=== PATIENT | female | born 1980 | race Caucasian/White ===

== ENCOUNTER 2019-10-07 16:01 | Outpatient (CLI) | payer BC, SELFPAY ==
--- NOTE | ~2019-10-07 | MM_ITS ---
EXAMINATION: MM screening [facility] BI w elvin HISTORY: Screening mammogram TECHNIQUE: Craniocaudal and mediolateral oblique 3-D tomosynthesis images were obtained and synthetic 2-D images were generated. CAD analysis was submitted and interpreted. COMPARISON: 10/05/2018 BREAST PARENCHYMAL COMPOSITION: The breasts are almost entirely fatty. FINDINGS: There is no evidence of suspicious mass, calcification, or architectural distortion to sugg est malignancy in either breast. There has been no suspicious interval change. IMPRESSION: 1. No mammographic evidence of malignancy. 2. Recommend routine screening mammography in one year. BI-RADS Category 1: Negative Reviewed, dictated and finalized at location A. 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
== END 2019-10-07 16:02 | disposition home or self-care (01) ==
PROVIDERS: PCP Internal Medicine; Visit Provider Obstetrics & Gynecology
DX: Z12.31 Encounter for screening mammogram for malignant neoplasm of breast (principal)
CPT/HCPCS: 77063; 77067

== ENCOUNTER 2020-06-07 11:48 | Outpatient (CLI) | payer BC, SELFPAY ==
--- NOTE | ~2020-06-07 | XR_ITS ---
XR hip BI 2V w AP pelvis DATE: 06/07/2020 12:08 INDICATION: Injury, hip pain TECHNIQUE: AP pelvis. AP and lateral views of each hip COMPARISON: None FINDINGS: No pelvic fracture or bone destruction. The pubic symphysis and sacroiliac joints are vineet lly aligned. No fracture, dislocation, avascular necrosis or bone destruction of either hip. IMPRESSION: No pelvic or hip fracture Reviewed, dictated and finalized at location A. IMPRESSION: No pelvic or hip fracture
== END 2020-06-07 11:49 | disposition home or self-care (01) ==
LOC: ANHIMG 11:53
PROVIDERS: PCP Internal Medicine; Visit Provider Internal Medicine
DX: M54.30 Sciatica, unspecified side (principal); T14.90XA Injury, unspecified, initial encounter
CPT/HCPCS: 73521

== ENCOUNTER 2020-11-13 15:14 | Outpatient (CLI) | payer BC, SELFPAY ==
--- NOTE | ~2020-11-13 | MM_ITS ---
EXAMINATION: MM screening [facility] BI w elvin HISTORY: Screening TECHNIQUE: Craniocaudal and mediolateral oblique 3-D tomosynthesis images were obtained and synthetic 2-D images were generated. CAD analysis was submitted and interpreted. COMPARISON: Comparison to multiple prior studies sequentially, with oldest reviewed study dated 11/2018. BREAST PARENCHYMAL COMPOSITION: There are scattered areas of fibroglandular density. FINDINGS: There is no evidence of suspicious mass, calcification, or architectural distortion to sugg est malignancy in either breast. There has been no suspicious interval change. IMPRESSION: 1. No mammographic evidence of malignancy. 2. Recommend routine screening mammography in one year. BI-RADS Category 1: Negative Reviewed, dictated and finalized at location A.
== END 2020-11-13 15:15 | disposition home or self-care (01) ==
LOC: ANHIMG 15:17
PROVIDERS: PCP Registered Nurse; Visit Provider Obstetrics & Gynecology
DX: Z12.31 Encounter for screening mammogram for malignant neoplasm of breast (principal)
CPT/HCPCS: 77063; 77067

== ENCOUNTER 2021-05-01 14:20 | Emergency (ER) | payer BC, SELFPAY ==
[2021-05-01 14:38] VITALS: BP 106/77; PULSE 91; RESP 16; TEMP 37.2; O2SAT 100
--- NOTE | 2021-05-01 15:13 | ED.SKABFB ---
HPI - Skin/Abscess/Foreign Bdy General Chief complaint: Skin/Abscess/Foreign Body Stated complaint: Rash to Rt side of face and Lt leg Source: patient and RN notes reviewed Mode of arrival: ambulatory History of Present Illness HPI narrative: This is a 40-year-old female who presented to urgent care with multiple rashes. According to patient 4 days ago she developed an area to her left inner ankle. She notes that this area became itchy in nature she did take Benadryl to prevent the itching. Currently the site is purulent with a white discharge and edematous with erythematous. She later developed multiple papule to her high area bilaterally. She now has an area to the left side of her face near her teeth. Patient did note that [place]. The patient denies SOB, CP, palpitation, extremity numbness, lightheadedness, dizziness, constipation, diarrhea, chills, or fever. MD complaint: rash, insect bite/sting and abscess/boil Related Data Allergies Allergy/AdvReac Type Severity Reaction Status Date / Time No Known Allergies Allergy Verified 05/01/21 14:48 Review of Systems Review of Systems: A 14 organ system Review of Systems was performed and pertinent positives included in the HPI, otherwise remaining ROS is negative. [facility] Past Medical History Medical History (Updated 05/01/21 @ 15:13 by PATRIA García) Anemia Anxiety Depression Surgical History Surgical History (System 01/16/21 @ 13:40 by Alma Alfred) History of tonsillectomy History of tubal ligation Family History Family History (System 01/16/21 @ 13:40 by Alma Alfred) Sibling Hypertension Mother Family history of anemia Family history of kidney disease Family history of hyperthyroidism Patient's mother is , Onset Age: 72 Grandparent Family history of Alzheimer's disease Family history of lung cancer, Onset Age: 72 Social History Social History (System 01/16/21 @ 13:40 by Alma Alfred) Smoking status: Current some day smoker Alcohol intake: current Exam Narrative: GENERAL: This is a well-nourished, well-developed patient, in no apparent distress. HEAD: normocephalic, atraumatic. EYES: PERRL. Sclera clear/white. Vision is grossly intact. EARS: External ears normal, auditory canals clear and without drainage, TMs normal without perforation. Hearing grossly intact. NOSE: External nose normal with no obvious nasal discharge, nares without redness, no rhinorrhea. THROAT: Mucous membranes moist, posterior pharynx clear. NECK: Neck supple, non-tender without lymphadenopathy, masses or thyromegaly. CARDIOVASCULAR: Regular rate and rhythm without murmurs, gallops, or rubs. RESPIRATORY: Clear to auscultation. Breath sounds equal bilaterally. No wheezes, rales, or rhonchi. GASTROINTESTINAL: Abdomen soft, non-tender, nondistended. Bowel sounds are active. No hepato-splenomegaly, or palpable masses. No guarding. SKIN: Left inner ankle pustule yellowish discharge erythema with edema. Multiple papula to my area bilateral. papula to the face. NEURO: awake, alert, and oriented to person, place and time. There were no obvious focal neurologic abnormalities. Steady gait EXTREMITIES: Normal range of motion. No edema. No calf tenderness. Negative Homans sign bilaterally. BACK: Nontender without deformity or crepitance. No flank tenderness. Course Course Emergency Course: Patient treated for cellulitis given doxycycline also instructed to use get [id number] calamine lotion for possible poison heike. Also given prednisone to his liking no was irritating a lot of mucus, no. Vital Signs Vital signs: Vital Signs Temperature 99.0 F 05/01/21 14:38 Pulse Rate 91 05/01/21 14:38 Respiratory Rate 16 05/01/21 14:38 Blood Pressure 106/77 05/01/21 14:38 Pulse Oximetry 100 05/01/21 14:38 Temperature 99.0 F 05/01/21 14:38 Pulse Rate 91 05/01/21 14:38 Resp
== END 2021-05-01 15:34 | disposition home or self-care (01) ==
PROVIDERS: Emergency Provider Nurse Practitioner; PCP Registered Nurse
DX: L25.9 Unspecified contact dermatitis, unspecified cause (principal); S90.562D Insect bite (nonvenomous), left ankle, subsequent encounter; S70.362D Insect bite (nonvenomous), left thigh, subsequent encounter; S70.361D Insect bite (nonvenomous), right thigh, subsequent encounter; S00.86XD Insect bite (nonvenomous) of other part of head, subsequent encounter; W57.XXXD Bitten or stung by nonvenomous insect and other nonvenomous arthropods, subsequent encounter
CPT/HCPCS: 99213; G0463

== ENCOUNTER 2021-07-13 10:34 | Outpatient (CLI) | payer BC, SELFPAY | END 2021-07-13 10:35 | disposition home or self-care (01) | LOC: ANHSURGERY 10:37 | PROVIDERS: PCP Registered Nurse; Visit Provider Obstetrics & Gynecology | DX: Z01.812 Encounter for preprocedural laboratory examination (principal); N92.0 Excessive and frequent menstruation with regular cycle | CPT/HCPCS: 36415; 86850; 86900; 86901 ==

== ENCOUNTER → 2021-07-14 00:33 | Outpatient (CLI) | payer BC, SELFPAY ==
[2021-07-14 17:30] LABS: SARS-CoV-2 RNA PCR Negative
== END ==
PROVIDERS: PCP Registered Nurse; Visit Provider Obstetrics & Gynecology
DX: Z01.812 Encounter for preprocedural laboratory examination (principal); Z20.822 Contact with and (suspected) exposure to COVID-19
CPT/HCPCS: C9803; U0003; U0005

== ENCOUNTER 2021-07-17 00:12 | Day surgery (SDC) | payer BC, MEDICAID, SELFPAY ==
[2021-07-12 14:12] VITALS: BMI 29.2
--- NOTE | 2021-07-12 14:23 | PC.NURSE ---
Report to the Outpatient Waiting Room, entrance under the green pavilion located off [facility], at time 6:00 on date 07/17/21. OR Time: 7:30. - You and your visitor will be asked a series of questions to screen for COVID 19 for your protection. - A mask is required within the hospital. - Only one visitor is allowed at this time. Patient visitors will be guided where to wait when not with patient. Preoperative COVID Testing Requirements: No COVID Test needed if: (proof is required; if not received patient will have Rapid Test prior to entry) - Patient has received COVID Vaccine at least 14 days prior to procedure date or - Patient has positive COVID test result within last 90 days of surgery date. COVID Test needed if above criteria is not met If not COVID vaccinated a COVID test must be conducted within 72 hours of surgery and patient is asked to isolate self from time of testing until procedure. You will go to the [facility] for your COVID testing. The [facility] site is located at the corner of [address] [facility]. COVID TEST 07/14 AT 9:30 You will only be called if COVID results are positive and your surgeon may reschedule your elective surgery date. Patients may have clear liquids (water, carbonated beverages, clear teas, apple juice) until 3 hours prior to surgery with a maximum of 20 ounces. - No food from midnight until time of surgery - Infants may have breast milk until 4 hours before surgery, infant formula 6 hours prior to surgery. - Children will be allowed to drink immediately following surgery. If applicable, please bring a bottle or sippy cup to assist with drinking. Juice, water, soda, and popsicles are readily available. For infants on formula, please bring formula the day of surgery. Pacifiers are allowed. Take the following medications with a SIP of water the morning of surgery: LEVOTHYROXINE, VALACYCLOVIR Medications to discontinue per physician: VITAMINS/SUPPLEMENTS Date to take last dose: 07/13/21 Please no make-up, nail faroese, hairspray, perfume, deodorant, or body powder the day of surgery. No jewelry (including any body piercings) or valuables the day of surgery, leave them at home. Please take a shower or bath the night before, or the morning of, surgery with an antibacterial soap. Wear comfortable, loose fitting clothing. Children are encouraged to wear pajamas. - Jewelry must be removed prior to entering the operating room. Rings and piercings that are not removed may be cut off. - The hospital will not accept responsibility for valuables. - Please leave all valuables, including medications, at home the day of surgery. If you are going home after surgery, a licensed driver courier must drive you home. - NO public transportation without another adult. - We recommend that an adult stay with you for 24 hours following discharge. - We also recommend that you do not drive, make important decision, drink alcoholic beverages, or take any drugs that were not prescribed by your health care provider for at least 24 hours after your discharge time. For Pediatric surgeries, we recommend two adults accompany the child home (only one inside the building at this time). Follow any additional instructions given to you from your surgeon. Telephone instructions given to KYLIE FUNG and asked if any additional questions and then verbalized understanding. Patient advised to call surgeon office or pre surgery nurse liaison [phone] if any additional questions.
--- NOTE | 2021-07-16 13:57 | PCCCNOTE ---
Phone call to Dr. Maurice's office to ask about precert/authorization- per garbage collector the assembler utility buildings is out of the office at this time but she will contact her to call me back, contact details provided. Awaiting call back.
[2021-07-17] VITALS (9 sets, daily range): BP systolic 95–112; BP diastolic 59–74; PULSE 61–79; RESP 12–19; TEMP 36.1–37.1; O2SAT 97–100
[2021-07-17] MEDS: ACETAMINOPHEN 500 MG TABLET 1000 MG PO (06:06)
[2021-07-17] MEDS: LACTATED RINGERS 1,000 ML 30 ML IV CONT ×2 (06:40→09:33)
[2021-07-17] MEDS: KETOROLAC 15 MG/ML VIAL (*BKC) IV PUSH ×2 (06:42→10:06)
--- NOTE | 2021-07-17 07:05 | P.PNAN_ITS ---
Anes - Initial Pre Proc Eval Procedure: Operation Date: 07/17/21 07:30 Proposed Procedures p Total Laparoscopic Hysterectomy with Bilateral Salpingectomy - Lorraine Maurice MD Date/Time: 07/17/21 07:05 Surgeon: Lorraine Maurice MD Pre Op Diagnosis: Menorrhagia Patient Data Age: 41 Gender: F Height: 1.57 m Weight: 74.6 kg Allergies Allergy/AdvReac Type Severity Reaction Status Date / Time No Known Allergies Allergy Verified 07/17/21 06:02 Home Medications Medication Instructions Recorded Confirmed Type levothyroxine 100 mcg tablet 100 mcg PO DAILY #90 tablet 09/04/20 07/17/21 Rx valacyclovir 500 mg tablet 500 mg PO DAILY #90 tablet 09/04/20 07/17/21 Rx multivitamin 1 tablet PO DAILY 07/12/21 07/17/21 History Patient hx anesthesia problems: none Family hx anesthesia problems: none Results Review: All pre-operative results and documents have been reviewed as part of the pre-operative evaluation. [facility] Past Medical History Medical History (Updated 05/02/21 @ 00:01 by Demi Bailey) Anemia Anxiety Depression Surgical History Surgical History (System 01/16/21 @ 13:40 by Alma Alfred) History of tonsillectomy History of tubal ligation Family History Family History (System 01/16/21 @ 13:40 by Alma Alfred) Sibling Hypertension Mother Family history of anemia Family history of kidney disease Family history of hyperthyroidism Patient's mother is , Onset Age: 72 Grandparent Family history of Alzheimer's disease Family history of lung cancer, Onset Age: 72 Social History Social History (System 01/16/21 @ 13:40 by Alma Alfred) Years smoked: 20 Smoking status: Current every day smoker Tobacco type: cigarettes Alcohol intake: current Alcohol use details: WEEKENDS Substance use: never Substance use type: does not use Living arrangements: with family Spiritual care concerns: No Anes - Eval Final PreProcedure Day of Procedure 07/17/21 07:05 Patient weight: obese Heart: regular rate and rhythm Lungs: clear to auscultation Airway: Mallampati scale class II Neurological: alert and oriented Last oral intake: >/= 8 hours ASA classification: II Emergent: no Anesthetic plan: proceed Anesthesia type and monitoring: general ETT and standard monitoring Results Review: All pre-operative results and documents have been reviewed as part of the pre-operative evaluation. Informed Consent: The patient's anesthetic plan and its attendant risks and benefits were discussed with the patient/family/POA. Questions were solicited and answers provided to the satisfaction of the patient/family/POA.
--- NOTE | 2021-07-17 07:20 | WPDHPUPDATE1 ---
History and Physical Update Update Date/Time: 07/17/21 07:20 History and Physical has been reviewed, including an updated exam of the patient. There are NO changes in the patient's condition. Risks, benefits, and alternatives have been discussed and questions answered. Patient agrees to proceed with procedure.
[2021-07-17] MEDS: ceFAZolin 2 GM/D5W 50 ML 2 GM/50 ML BAG IVPB (07:30)
--- NOTE | 2021-07-17 09:35 | W.PM.PROC2 ---
Procedure Note - Detailed Date of Procedure 07/17/21 Pre-op Diagnosis Menorrhagia Post-op Diagnosis same Procedure Performed Total laparoscopic hysterectomy and bilateral salpingectomy. Surgeon Lorraine Maurice MD Anesthesia general Indications Severe menometrorrhagia, possible cervical mass Findings Moderate sized uterus, normal appearing ovaries and normal-appearing tubes. Description of Procedure This patient was taken to the operating room. She was prepped and draped in the dorsal lithotomy position after induction of general anesthesia. The uterine manipulator and Messi cup were placed. This was done with a speculum and tenaculum. The speculum was placed. The cervix was grasped with a tenaculum. The stay sutures were placed at 3 and 9:00 a.m.. The stay sutures of 0 Vicryl were brought through the appropriately sized Messi cup. The tip of the JAIDA manipulator was placed in the intrauterine cavity. The cup was slid into place around the cervix and into the fornices. It was locked into place. The sutures were then wrapped around the handle and tied under tension. A 5 mm skin incision was made in the left upper quadrant the abdomen. A 5 mm trocar was inserted into the intrauterine cavity under direct visualization of the scope. Pneumoperitoneum was achieved. A left lower quadrant 11 mm incision was made with scalpel. An 11 mm trocar was inserted into the anterior abdominal cavity under direct visualization the scope. A 5 mm infraumbilical incision was made with a scalpel and a 5 mm trocar was inserted the intra-abdominal cavity under direct visualization of the scope. Bilateral ureteral lysis was performed. This was done from the pelvic brim down to the uterine artery. This was done with careful dissection using sharp and blunt dissection. The fallopian tubes were removed bilaterally. The mesosalpinx around the fallopian tubes were cauterized transected with LigaSure cautery. This was done in a bilateral fashion from the ovary to the uterine cornua. The fallopian tube was transected at the uterine cornu and amputated. The tube was taken out the left lower quadrant trocar site. In a stepwise fashion along the lateral aspects of the uterus the round ligament and broad ligaments were cauterized transected down to the level of the uterine arteries. A bladder flap was created in the bladder was moved distally to the end of the cervix and over the Messi cup. The bilateral uterine arteries were cauterized and transected. Colpotomy was then performed. In a circumferential fashion the vagina was transected using unipolar cautery. The incision was made down on the Messi cup. The uterus and cervix were taken out through the vagina. A pneumo occluder was placed in the vagina. The vaginal cuff was closed with a 0 V lock suture in a running fashion. The pelvis was irrigated with copious amounts antibiotic irrigation. The ureters were again examined and found to be intact and flowing freely under the uterine arteries into the bladder. The bladder was intact. It was examined directly. The vagina was irrigated with Betadine solution after removal of the Pneumo occluder. The patient was taken to recovery room. She was stable condition. Sponge lap and needle counts were correct x2. Estimated Blood Loss 100 Drains Yes Packing No Pathology yes Complications No immediate complications Condition stable Disposition floor
[2021-07-17] MEDS: fentaNYL CITRATE INJ (*CRX) 100 MCG/2 ML VIAL 25 MCG IV PUSH ×8 (09:47→10:25)
--- NOTE | 2021-07-17 10:45 | PC.NURSE ---
This patient, Eliane Conley, was received from PACU on 07/17/21 at 1045. Patient/family oriented to unit policies and routines
[2021-07-17] MEDS: DEXTROSE 5%/0.45% SOD CHL 1,000 ML 125 ML IV CONT (11:27)
[2021-07-17] MEDS: KETOROLAC 30 MG/ML VIAL (*BKC) IV PUSH (13:15)
[2021-07-17] MEDS: HYDROcodone/acetaminophen (*CRX) 10-325 MG TABLET 1 TAB PO ×2 (14:32→19:48)
[2021-07-18 00:07] VITALS: BP 101/62; PULSE 62; RESP 16; TEMP 36.8; O2SAT 98
[2021-07-18] MEDS: HYDROcodone/acetaminophen (*CRX) 5-325 MG TABLET 1 TAB PO ×3 (01:13→08:39)
[2021-07-18] MEDS: IBUPROFEN 600 MG TABLET PO ×2 (01:13→08:39)
[2021-07-18] MEDS: SIMETHICONE 80 MG TAB.CHEW PO (01:20)
[2021-07-18 04:30] VITALS: BP 100/61; PULSE 84; RESP 16; TEMP 36.9; O2SAT 100
--- NOTE | 2021-07-18 07:33 | PM.GYNPNOP ---
SYSTEMS ADMIN - A/P Postoperative Procedures: Procedures Operation Date: 07/17/21 07:30 Actual Procedure Side Surgeon p Total Laparoscopic Hysterectomy with Bilateral Salpingectomy Bilateral Lorraine Maurice MD Postoperative day: 1 Postoperative status: doing well Postoperative plan: see orders Time Spent With Patient Time: Total time spent is greater than 50% in coordination of care (as documented) at patient's floor/unit and/or counseling patient: Time with patient: less than 15 minutes SYSTEMS ADMIN- PN:Subj Post-Op Subjective Date/time seen: 07/18/21 07:33 Subjective: patient reports feeling better, patient has no complaints and pain is well controlled Exam Const: General: healthy appearing, comfortable and no acute distress Resp: Auscultation: clear to auscultation bilaterally, no rales, no rhonchi and no wheezes Cardio: Rate: regular rate Heart sounds: no click, no murmurs and no rubs GI: Inspection: non-distended Auscultation: normal bowel sounds Extrem: General: normal to inspection, no pedal edema and no calf tenderness SYSTEMS ADMIN - PN: Obj Data Vital Signs Vital Signs: Vital Signs - 24 hr 07/17/21 09:33 07/17/21 09:45 07/17/21 10:00 Temperature 98.6 F Pulse Rate 69 62 78 Respiratory Rate 14 12 18 Blood Pressure 107/74 103/74 108/73 Pulse Oximetry 100 100 97 07/17/21 10:15 07/17/21 10:30 07/17/21 11:39 Temperature 98.8 F Pulse Rate 61 78 64 Respiratory Rate 12 19 16 Blood Pressure 103/63 96/59 L 95/61 L Pulse Oximetry 97 98 97 07/17/21 15:30 07/17/21 20:00 07/18/21 00:07 Temperature 98.3 F 98.8 F 98.2 F Pulse Rate 79 72 62 Respiratory Rate 16 18 16 Blood Pressure 100/69 112/64 101/62 Pulse Oximetry 99 99 98 07/18/21 04:30 Temperature 98.4 F Pulse Rate 84 Respiratory Rate 16 Blood Pressure 100/61 Pulse Oximetry 100 Intake/Output Intake/Output: Intake & Output 07/15/21 07/16/21 07/17/21 07/18/21 23:59 23:59 23:59 23:59 Intake Total 450 Output Total 325 Balance 125 Meds/Results Medications: Active Medications Generic Name Dose Route Start Last Admin Trade Name Freq PRN Reason Stop Dose Admin Hydrocodone Bitart/Acetaminophen 1 tab 07/17/21 10:36 07/18/21 04:34 Hydrocodone/Acetaminophen (*Crx) 5-325 Mg Tablet PO 1 tab Q3H PRN Administration Pain Rated 5 or Less Hydrocodone Bitart/Acetaminophen 1 tab 07/17/21 10:36 07/17/21 19:48 Hydrocodone/Acetaminophen (*Crx) 10-325 Mg Tablet PO 1 tab Q3H PRN Administration Pain Rated 6 or Greater Dextrose/Sodium Chloride 1,000 mls @ 125 mls/hr 07/17/21 10:36 07/17/21 11:27 Dextrose 5% Sodium Chloride 0.45% IV CONT 125 mls/hr .Q8H JUANJOSE Administration Ibuprofen 600 mg 07/17/21 10:36 07/18/21 01:13 Ibuprofen 600 Mg Tablet PO 600 mg Q6H PRN Administration Cramping Ketorolac Tromethamine 30 mg 07/17/21 10:36 07/17/21 13:15 Ketorolac 30 Mg/Ml Vial (*Bkc) IV PUSH 07/22/21 10:35 30 mg Q6H PRN Administration Pain Rated 4-6 Levothyroxine Sodium 100 mcg 07/18/21 06:30 Levothyroxine Sodium 100 Mcg Tablet PO DAILY@0630 [facility] Multivitamins Therapeutic 1 tablet 07/18/21 09:00 Multivitamins Therapeutic Tab (*Bkc) PO DAILY [facility] Naloxone HCl 0.1 mg 07/17/21 10:36 Naloxone Hcl 0.4 Mg/Ml Vial IV PUSH Q2M PRN Respiratory rate less than 10 Ondansetron HCl 4 mg 07/17/21 10:36 Ondansetron Inj 4 Mg/2 Ml Vial IV PUSH Q6H PRN Nausea And Vomiting Simethicone 80 mg 07/18/21 01:14 07/18/21 01:20 Simethicone 80 Mg Tab.Chew PO 07/27/21 01:15 80 mg PRN PRN Administration Abdominal Distention Valacyclovir HCl 500 mg 07/18/21 09:00 Valacyclovir Hcl 500 Mg Tablet PO DAILY [facility]
[2021-07-18 07:50] VITALS: BP 101/67; PULSE 64; RESP 16; TEMP 37.2; O2SAT 98
[2021-07-18] MEDS: LEVOTHYROXINE SODIUM 100 MCG TABLET PO (08:36)
--- NOTE | 2021-07-18 09:51 | WPDANESPN ---
Anes - Prog Note Post-Op Date/Time: 07/18/21 09:51 Cardiovascular status: normal Respiratory status: normal Airway patency: baseline Mental status: baseline Post-Op hydration status: normal Vital Signs: Last Vital Signs Temp 37.2 C 07/18/21 07:50 Pulse 64 07/18/21 07:50 Resp 16 07/18/21 07:50 BP 101/67 07/18/21 07:50 Pulse Ox 98 07/18/21 07:50 Pain Score (VAS): 0 Post-procedural complaints: none Patient Feedback: Patient satisfied with anesthetic care.
== END 2021-07-18 09:58 | disposition home or self-care (01) ==
LOC: ANHSURGERY 05:53 → ANHOB2 10:37
PROVIDERS: PCP Registered Nurse; Visit Provider Obstetrics & Gynecology
PROC: 0UT9FZZ Resection of Uterus, Via Natural or Artificial Opening With Percutaneous Endoscopic Assistance (ICD-10-PCS; CPT 58571; principal; 2021-07-17 07:30)
DX: N92.0 Excessive and frequent menstruation with regular cycle (principal); N88.8 Other specified noninflammatory disorders of cervix uteri; N80.0 Endometriosis of uterus; D25.1 Intramural leiomyoma of uterus; N73.6 Female pelvic peritoneal adhesions (postinfective); F41.8 Other specified anxiety disorders; F17.210 Nicotine dependence, cigarettes, uncomplicated; E66.9 Obesity, unspecified; Z68.30 Body mass index [BMI] 30.0-30.9, adult
CPT/HCPCS: 58571; 36415; 86850; 86900; 86901; 88307; 99199; A9270; C9803; J0690; J1100; J1170; J1885; J2250; J2405; J2704; J2710; J3010; J7120; U0003; U0005

== ENCOUNTER 2021-11-27 13:21 | Emergency (ER) | payer BC, SELFPAY ==
[2021-11-27 13:30] VITALS: BP 133/98; PULSE 82; RESP 16; TEMP 36.3; O2SAT 100
--- NOTE | 2021-11-27 13:31 | ED.FEMALEGU ---
HPI - Female Genitourinary General Chief complaint: Urogenital-Female Stated complaint: UTI Time Seen by Provider: 11/27/21 13:35 Source: patient, RN notes reviewed and old records reviewed Mode of arrival: ambulatory Limitations: no limitations History of Present Illness HPI Narrative: 41-year-old female presents to the [facility] with complaints of urgency and frequency of urination. Thinks that she might have a UTI. Denies abdominal pain, chest pain, fevers, nausea, vomiting or diarrhea. MD elicited complaint: UTI Related Data Home Medications Medication Instructions Recorded Confirmed phentermine 37.5 mg PO DAILY 11/27/21 11/27/21 Allergies Allergy/AdvReac Type Severity Reaction Status Date / Time No Known Allergies Allergy Verified 11/27/21 13:23 Review of Systems Review of Systems: All systems reviewed & are unremarkable except as noted in HPI and below Constitutional: Constitutional: Reports no additional constitutional complaints, Denies chills and Denies fatigue Eyes: Eyes: Reports no additional eye complaints ENT: Reports system reviewed and no additional complaints, except as documented Cardiovascular: Cardiovascular: Reports no additional cardiovascular complaints Respiratory: Respiratory: Reports no additional respiratory complaints Gastrointestinal: Gastrointestinal: Reports no additional gastrointestinal complaints, Denies abdominal pain, Denies diarrhea, Denies nausea and Denies vomiting Genitourinary: Genitourinary: Reports as per HPI, Denies hematuria, Reports nocturia, Denies genital pruritis, Denies dysuria, Denies pelvic pain, Denies flank pain, Reports urinary urgency and Denies vaginal discharge Musculoskeletal: Musculoskeletal: Reports no additional musculoskeletal complaints and Denies back pain Integumentary/Breasts: Skin/Breast: Reports system reviewed and no additional complaints, except as docu Neurologic: Reports system reviewed and no additional complaints, except as documented Psychiatric: Psychiatric: Reports no additional psychiatric complaints Endocrine: Endocrine: Denies fatigue Allergic/Immunologic: Allergic/Immunologic: Reports no additional allergic/immunologic complaints [facility] Past Medical History Medical History Anemia Anxiety Depression Surgical History Surgical History History of tonsillectomy History of tubal ligation Family History Family History Sibling Hypertension Mother Family history of anemia Family history of kidney disease Family history of hyperthyroidism Patient's mother is , Onset Age: 72 Grandparent Family history of Alzheimer's disease Family history of lung cancer, Onset Age: 72 Social History Social History Years smoked: 20 Smoking status: Current every day smoker Tobacco type: cigarettes Alcohol intake: current Alcohol use details: WEEKENDS Substance use: never Substance use type: does not use Spiritual care concerns: No Comments At the time of my signature, I reviewed and agree with the nursing past medical, surgical, social, and family history. There is no relevant family history pertinent to the patient complaint. Exam Const: General: healthy appearing, no acute distress and alert Nutritional Appearance: well nourished Orientation/consciousness: patient oriented x3 Limitations: no limitations HENMT: Head: normal to inspection Ears: external ears normal Eyes: Conjunctivae: conjunctivae normal Pupils: Equal, round and reactive pupils present Neck: Neck: normal visual inspection, no lymphadenopathy and no meningeal signs Chest: Chest palpation & inspection: normal inspection of the chest and abnormal inspection of the chest Resp: Effort & Inspection:
== END 2021-11-27 13:43 | disposition home or self-care (01) ==
PROVIDERS: Emergency Provider Nurse Practitioner; PCP Registered Nurse
DX: R30.0 Dysuria (principal); F17.210 Nicotine dependence, cigarettes, uncomplicated
CPT/HCPCS: 81003; 99212; G0463

== ENCOUNTER 2022-03-06 12:27 | Outpatient (CLI) | payer BC, SELFPAY ==
--- NOTE | ~2022-03-06 | MM_ITS ---
EXAMINATION: MM screening [facility] BI w elvin HISTORY: Screening TECHNIQUE: Craniocaudal and mediolateral oblique 3-D tomosynthesis images were obtained and synthetic 2-D images were generated. CAD analysis was submitted and interpreted. COMPARISON: Comparison to multiple prior studies sequentially, with oldest reviewed study dated 11/2018. BREAST PARENCHYMAL COMPOSITION: There are scattered areas of fibroglandular density. FINDINGS: There is no evidence of suspicious mass, calcification, or architectural distortion to sugg est malignancy in either breast. There has been no suspicious interval change. IMPRESSION: 1. No mammographic evidence of malignancy. 2. Recommend routine screening mammography in one year. BI-RADS Category 1: Negative Reviewed, dictated and finalized at location A.
== END 2022-03-06 12:28 | disposition home or self-care (01) ==
LOC: ANHIMG 12:28
PROVIDERS: PCP Registered Nurse; Visit Provider Obstetrics & Gynecology
DX: Z12.31 Encounter for screening mammogram for malignant neoplasm of breast (principal)
CPT/HCPCS: 77063; 77067

== ENCOUNTER 2023-03-17 10:12 | Outpatient (CLI) | payer BC, MEDICAID, SELFPAY ==
--- NOTE | ~2023-03-17 | MM_ITS ---
EXAMINATION: MM screening [facility] BI w elvin HISTORY: Screening TECHNIQUE: Craniocaudal and mediolateral oblique 3-D tomosynthesis images were obtained and synthetic 2-D images were generated. CAD analysis was submitted and interpreted. COMPARISON: Comparison to multiple prior studies sequentially, with oldest reviewed study dated 11/2018. BREAST PARENCHYMAL COMPOSITION: Breast composed of scattered areas of fibroglandular density FINDINGS: There is no evidence of suspicious mass, calcification, or architectural distortion to sugg est malignancy in either breast. There has been no suspicious interval change. IMPRESSION: 1. No mammographic evidence of malignancy. 2. Recommend routine screening mammography in one year. BI-RADS Category 1: Negative Reviewed, dictated and finalized at location A.
== END 2023-03-17 10:13 | disposition home or self-care (01) ==
LOC: ANHIMG 10:15
PROVIDERS: PCP Registered Nurse; Visit Provider Obstetrics & Gynecology
DX: Z12.31 Encounter for screening mammogram for malignant neoplasm of breast (principal)
CPT/HCPCS: 77063; 77067

== ENCOUNTER 2024-03-24 16:23 | Outpatient (CLI) | payer BC, MEDICAID, SELFPAY ==
--- NOTE | ~2024-03-24 | MM_ITS ---
EXAMINATION: MM screening [facility] w elvin HISTORY: Screening TECHNIQUE: Craniocaudal and mediolateral oblique 3-D tomosynthesis images were obtained and synthetic 2-D images were generated. CAD analysis was submitted and interpreted. COMPARISON: Comparison to multiple prior studies sequentially, with oldest reviewed study dated 11/2018. BREAST PARENCHYMAL COMPOSITION: Not dense: There are scattered areas of fibroglandular density. FINDINGS: There is no evidence of suspicious mass, calcification, or architectural distortion to sugg est malignancy in either breast. There has been no suspicious interval change. IMPRESSION: 1. No mammographic evidence of malignancy. 2. Recommend routine screening mammography in one year. BI-RADS Category 1: Negative Reviewed, dictated and finalized at location B.
== END 2024-03-24 16:24 | disposition home or self-care (01) ==
PROVIDERS: Visit Provider Obstetrics & Gynecology
DX: Z12.31 Encounter for screening mammogram for malignant neoplasm of breast (principal)
CPT/HCPCS: 77063; 77067

== ENCOUNTER 2024-11-10 17:25 | Emergency (ER) | payer BC, SELFPAY ==
--- NOTE | 2024-11-10 17:30 | ED.EAR ---
HPI - Ear Problem General Chief complaint: Ear Stated complaint: ear infection Time Seen by Provider: 11/10/24 17:40 Source: patient Mode of arrival: ambulatory Limitations: no limitations History of Present Illness HPI Narrative: Eliane is a 44-year-old female patient presenting to the clinic today with complaints of bilateral ear pain right greater than left. Denies any fevers, chills, body aches. No runny nose, cough or congestion. Related Data Home Medications ?Medication ?Instructions ?Recorded ?Confirmed ?Last Taken ?Type phentermine 37.5 mg tablet 37.5 mg PO DAILY 11/27/21 11/27/21 Unknown History bupropion HCl 150 mg 24 hr tablet, 150 mg PO QAM 07/23/23 Unknown History extended release trazodone 50 mg tablet 50 mg PO QHS PRN 07/23/23 Unknown History Allergies Allergy/AdvReac Type Severity Reaction Status Date / Time No Known Allergies Allergy Verified 11/10/24 17:34 Review of Systems Review of Systems: Pertinent positives per HPI. Patient denies any fever, chills, rash, headache, visual changes, dizziness, cough, shortness of breath, chest pain, palpitations, nausea, vomiting, diarrhea, constipation, abdominal pain, or any urinary issues. [facility] Past Medical History Medical History (Updated 11/10/24 @ 17:44 by Juventino Alvarado APRN) Anemia Anxiety Depression Surgical History Surgical History Hx of breast reduction, elective H/O: hysterectomy H/O abdominoplasty History of tubal ligation History of tonsillectomy Family History Family History Sibling Hypertension Depression Mother Family history of anemia Family history of kidney disease Family history of hyperthyroidism Patient's mother is , Onset Age: 72 Depression Grandparent Family history of Alzheimer's disease Family history of lung cancer, Onset Age: 72 Father Depression Other Diabetes mellitus Hypertension Depression Social History Social History Years smoked: 20 Smoking status: Current every day smoker Tobacco type: cigarettes Alcohol intake: current Alcohol use details: WEEKENDS Substance use: never Substance use type: does not use Lack of Transportation: No Lack of Food: Never True Current Housing: I Have Housing Concerned About Future Housing: No Difficulty Paying Gas/Electric Bills: No Difficulty Paying for Meds: No Currently Unemployed: No Education: Associate Degree Difficulty w/ Childcare or Family Care: No Living arrangements: with family Spiritual care concerns: No Comments At the time of my signature, I reviewed and agree with the nursing past medical, surgical, social, and family history. There is no relevant family history pertinent to the patient complaint. Exam Narrative: General: Well-developed, well nourished, in no apparent distress Head: Normocephalic, atraumatic Eyes: Pupils equally round and reactive to light bilaterally, EOM intact, sclera and conjunctive clear, no discharge, lids normal Ears: TMs intact and bulging, tenderness over the right eustachian tube ear canals clear, no drainage, grossly hearing normal. Nose: Nares patent, no discharge, no inflammation, no sinus tenderness. Mouth: Oral pharynx without lesions or masses, good dentition, MMM. Neck: Supple, trachea midline, no enlargement of anterior or posterior cervical nodes, no thyroid masses or goiter palpable. Cardio: Regular rate and rhythm, s1 and s2 normal, no murmur appreciated. Resp: Clear to auscultation bilaterally, no rhonchi, rales, wheezing or rubs Course Course Emergency Course: Portions of this record may have been created with voice recognition software. Level of Care: Express Care Visit Vital Signs Vital signs: Vital Signs Temperature 36.6 C 11/10/24 17:36 Pulse Rate 99 11/10/24 17:36 Respiratory Rate 18 11/10/24 17:36 Blood Pressure 109/77 11/10/24 17:36 Pulse Oximetry 100 11/10/24 17:36 Oxygen Delivery Room Air 11/10/24 17:36 Temperature 36.6 C 11/10/24 17:36 Pulse Rate 99 11/10/24 17:36 Respiratory Rate 18 11/10/24 17:36 Blood Pressure 109/77 11/10/24 17:36 Pulse Oximetry 100 11/10/24 17:36 Oxygen Delivery Room Air 11/10/24 17:36 Vital signs reviewed Medical Decision Making MDM Narrative Medical decision making narrative: At the time of visit patient is resting comfortably on the exam table. Patient appears to be nontoxic. Plan: I suspect patient has eustachian tube dysfunction. Prescription for prednisone was sent to the pharmacy. Supportive measures were discussed with the patient and they voiced understanding discharge instructions and agrees to treatment plan. Return precautions reviewed Differential Diagnosis Differential Diagnosis: Otitis media, otitis externa, eustachian tube dysfunction, cerumen impaction, upper respiratory infection, serous otitis Vital Signs Vital Signs: Vital Signs Temperature 36.6 C 11/10/24 17:36 Pulse Rate 99 11/10/24 17:36 Respiratory Rate 18 11/10/24 17:36 Blood Pressure 109/77 11/10/24 17:36 Pulse Oximetry 100 11/10/24 17:36 Oxygen Delivery Room Air 11/10/24 17:36 Temperature 36.6 C 11/10/24 17:36 Pulse Rate 99 11/10/24 17:36 Respiratory Rate 18 11/10/24 17:36 Blood Pressure 109/77 11/10/24 17:36 Pulse Oximetry 100 11/10/24 17:36 Oxygen Delivery Room Air 11/10/24 17:36 Discharge Plan Discharge Clinical Impression: Acute dysfunction of both eustachian tubes Patient Disposition: Home, Self-Care Condition: Stable Instructions: Antibiotic Form, Earache (ED) Additional Instructions: Take prescription medications only as prescribed-prednisone Increase fluids and stay well hydrated Tylenol/motrin for pain/fever Flonase and OTC antihistamines as directed Go to the ED if you develop a worsening in your condition- high fever not controlled by Tylenol or Motrin, dehydration, weakness, lethargy, shortness of breath, or chest pain. Follow up with your PCP in 3-5 days if symptoms persist. Patient Language: [place]ian Prescriptions: New prednisone 20 mg tablet 40 mg PO DAILY 5 Days Qty: 10 0RF No Action phentermine 37.5 mg tablet 37.5 mg PO DAILY trazodone 50 mg tablet 50 mg PO QHS PRN bupropion HCl 150 mg tablet extended release 24 hr 150 mg PO QAM fluticasone propionate [Flonase Allergy Relief] 50 mcg/actuation spray,suspension 1 - 2 spray intranasal BID Qty: 16 1RF Rx Instructions: administer into each nostril. Aim back/up/out valacyclovir [Valtrex] 500 mg tablet 500 mg PO DAILY Qty: 90 1RF levothyroxine 100 mcg tablet 100 mcg PO DAILY Qty: 90 1RF Follow-up/Referrals: Padma,HUY Akins [Primary Care Provider] - Time of Disposition: 17:43 Quality NIHSS Nursing Documentation ED NIHSS nursing documentation: reviewed/agree
[2024-11-10 17:36] VITALS: BP 109/77; PULSE 99; RESP 18; TEMP 36.6; O2SAT 100
--- OUTSIDE RECORDS SUMMARY | 2024-11-10 18:04 | XMS_ITS | Data Portability ---
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 Patient will come back in a year unless there are new symptoms. Not available 01/30/2022 17:40:42 11/27/2022 11/27/2022 Annual gynecological exam performed. Patient will come back in a year unless there are new symptoms. [email or web address] Not available 11/27/2022 15:19:07 12/17/2023 12/17/2023 Annual gynecological exam performed. Patient will come back in a year unless there are new symptoms. Not available 12/17/2023 12:04:19 Plan of Treatment Reminders Order Date Submit Date Provider Last Modified By Organization Details Last Modified Time Details Appointments None recorded . Lab CBC w/ auto diff 2021 [facility] (Lab), [address] [place], [address], 05:39:25 CMP, serum or plasma 2021 [facility] (Lab), [address] [place], [address], 05:39:26 lipid panel, blood 2021 022 [facility] (Lab), [address], [place], [address], 2 05:39:25 TSH, serum or plasma 2021 022 [facility] (Lab), [address], [place], [address], 2 05:39:26 vitamin D, 25-hydro xy, total, serum 2021 022 [facility] (Lab), [address], [place], [address], 2 05:39:27 hormone panel, serum or plasma 2021 022 [facility] (Lab), [address], [place], [address], 2 05:39:27 Referral None recorded . Procedures None recorded . Surgeries None recorded . Imaging MAMMO, screenin g, bilatera l [address] [facility], [address], [address], [place], [address], 4 16:03:05 MAMMO, screenin g, digital, bilatera l 2022 023 [facility], [address], [place], [address], 3 16:01:29 Medication Orders estradio l 1 mg tablet 2021 022 [facility] [address] , [place], [address], 3 15:20:02 Patient TargetsNo targets recorded. Patient InstructionsNo instructions recorded. Reason for Referral None Reported. Results Created Date Observation Date Name Description Value Unit Range Abnormal Flag Note LastModifiedBy Organization Detail LastModifiedTime 01/31/20 22 01/30/2022 CBC W/DIF F WBC 7.6 10'3/ uL 3.6-10 .2 Not Available [facility] (Lab) [address] , [place], [address], 01/31/2022 05:39:25 01/31/20 22 01/30/2022 CBC W/DIF F RBC 4.30 10'6/ uL (based on docume nted legal sex) 4.10-5 .30 Not Available [facility] (Lab) [address], [place], [address], 01/31/2022 05:39:25 01/31/20 22 01/30/2022 CBC W/DIF F HGB 13.1 g/dL (based on docume nted legal sex) 11.9-1 5.8 Not Available [facility] (Lab) [address], [place], [address], 01/31/2022 05:39:25 01/31/20 22 01/30/2022 CBC W/DIF F HCT 39.5 % (based on docume nted legal sex) 37.4-4 8.3 Not Available [facility] (Lab) [address] , [place], [address], 01/31/2022 05:39:25 01/31/20 22 01/30/2022 CBC W/DIF F MCV 93.0 fL 82.0-9 9.0 Not Available [facility] (Lab) [address] , [place], [address], 01/31/2022 05:39:25 01/31/20 22 01/30/2022 CBC W/DIF F MCH 31.0 pg 27.0-3 3.0 Not Available [facility] (Lab) [address], [place], [address], 01/31/2022 05:39:25 01/31/20 22 01/30/2022 CBC W/DIF F MCHC 33.0 g/dL 32.0-3 6.0 Not Available [facility] (Lab) [address], [place], [address], 01/31/2022 05:39:25 01/31/20 22 01/30/2022 CBC W/DIF F RDW 14.0 % 11.0-1 5.0 Not Available [facility] (Lab) [address], [place], [address], 01/31/2022 05:39:25 01/31/20 22 01/30/2022 CBC W/DIF F plt 319 10'3/ uL 150-45 0 Not Available [facility] (Lab) [address], [place], [address], 01/31/2022 05:39:25 01/31/20 22 01/30/2022 CBC W/DIF F MPV 9.8 fL 9.8-12 .7 Not Available [facility] (Lab) [address], [place], [address], 01/31/2022 05:39:25 01/31/20 22 01/30/2022 CBC W/DIF F NRBC's 0.00 % 0 Not Available [facility] (Lab) [address], [place], [address], 01/31/2022 05:39:25 01/31/20 22 01/30/2022 CBC W/DIF F absolute NRBCs 0.0 10'3/ uL 0 Not Available [facility] (Lab) [address], [place], [address], 01/31/2022 05:39:25 01/31/20 22 01/30/2022 CBC W/DIF F neutrophils 61.0 % 37.0-7 2.0 Not Available [facility] (Lab) [address] [place], [address], 01/31/2022 05:39:25 01/31/20 22 01/30/2022 CBC W/DIF F lymphocytes 30.0 % 16.0-4 8.0 Not Available [facility] (Lab) [address], [place], [address], 01/31/2022 05:39:25 01/31/20 22 01/30/2022 CBC W/DIF F monocytes 7.0 % 4.0-14 .0 Not Available [facility] (Lab) [address], [place], [address], 01/31/2022 05:39:25 01/31/20 22 01/30/2022 CBC W/DIF F eosinophils 2.0 % 0.0-9. 0 Not Available [facility] (Lab) [address] [place], [address], 01/31/2022 05:39:25 01/31/20 22 01/30/2022 CBC W/DIF F basophils 0.0 % 0.0-2. 0 Not Available [facility] (Lab) [address] [place], [address], 01/31/2022 05:39:25 01/31/20 22 01/30/2022 CBC W/DIF F immature granulocytes 0.0 % no define d refere nce range Not Available [facility] (Lab) [address], [place], [address], 01/31/2022 05:39:25 01/31/20 22 01/30/2022 CBC W/DIF F absolute neutrophils 4.7 10'3/ uL 1.1-6. 0 Not Available [facility] (Lab) [address] [place], [address], 01/31/2022 05:39:25 01/31/20 22 01/30/2022 CBC W/DIF F absolute lymphocytes 2.3 10'3/ uL 0.7-3. 4 Not Available [facility] (Lab) [address] [place], [address], 01/31/2022 05:39:25 01/31/20 22 01/30/2022 CBC W/DIF F absolute monocytes 0.5 10'3/ uL 0.3-1. 0 Not Available [facility] (Lab) [address], [place], [address], 01/31/2022 05:39:25 01/31/20 22 01/30/2022 CBC W/DIF F absolute eosinophils 0.1 10'3/ uL 0.0-0. 6 Not Available [facility] (Lab) [address], [place], [address], 01/31/2022 05:39:25 01/31/20 22 01/30/2022 CBC W/DIF F absolute basophils 0.0 10'3/ uL 0.0-0. 1 Not Available [facility] (Lab) [address], [place], [address], 01/31/2022 05:39:25 01/31/20 22 01/30/2022 CBC W/DIF F absolute immature granulocytes 0.00 10'3/ uL 0.00-0 .10 022 2:38 AM: P indic ates parti al resul ts on a panel have been relea sed. Addit ional resul ts will follo w. 022 2:38 AM: This resul t has been final verif ied. No addit ional or main ed resul ts are expec cherie. Not Available [facility] (Lab) [address], [place], [address], 01/31/2022 05:39:25 01/31/20 22 01/30/2022 LIPID PANEL ,AMA (LDL- CALC) total cholesterol 227 mg/dL 0-199 high Not Available [facility] (Lab) [address], [place], [address], 01/31/2022 05:39:25 01/31/20 22 01/30/2022 LIPID PANEL ,AMA (LDL- CALC) triglyceride s 138 mg/dL 0.00-1 50.00 NCEP Refer ence Value s for Trigl yceri ganga: Apple l: <150 mg/dL Borde rline High: 150 - 199 mg/dL High: 200 - 499 mg/dL Very High: >/= 500 mg/dL Not Available [facility] (Lab) [address], [place], [address], 01/31/2022 05:39:25 01/31/20 22 01/30/2022 LIPID PANEL ,AMA (LDL- CALC) HDL cholesterol 64 mg/dL >40 Not Available [facility] (Lab) [address], [place], [address], 01/31/2022 05:39:25 01/31/20 22 01/30/2022 LIPID PANEL ,AMA (LDL- CALC) LDL cholesterol 135 mg/dL 0-99 high Cutof f value s recom violette d by the Natio nal Jessica stero l Educa tion Progr am: NIRAV ABLE: Jessica stero l <200 mg/dL LDL <100 mg/dL BORDE RLINE : Jessica stero l 200-2 39 mg/dL LDL 101-1 59 mg/dL HIGHE R RISK: Jessica stero l >240 mg/dL LDL >160 mg/dL , HDL <40 mg/dL Not Available [facility] (Lab) [address], [place], [address], 01/31/2022 05:39:25 01/31/20 22 01/30/2022 LIPID PANEL ,AMA (LDL- CALC) non-HDL cholesterol 163 mg/dL no refere nce range A reaso nable goal for non-H DL jessica stero l is one that is 30 mg/dL highe r than the LDL jessica stero l goal. Not Available [facility] (Lab) [address] [place], [address], 01/31/2022 05:39:25 01/31/20 22 01/30/2022 LIPID PANEL ,AMA (LDL- CALC) chol/HDL ratio 3.5 . 0.0-5. 0 Not Available [facility] (Lab) [address], [place], [address], 01/31/2022 05:39:25 01/31/20 22 01/30/2022 CMP(C OMPRE HENSI VE METAB OLIC PANEL ) sodium 140 mmol/ L 133-14 6 Not Available [facility] (Lab) [address], [place], [address], 01/31/2022 05:39:26 01/31/20 22 01/30/2022 CMP(C OMPRE HENSI VE METAB OLIC PANEL ) potassium 4.1 mmol/ L 3.5-5. 1 Not Available [facility] (Lab) [address], [place], [address], 01/31/2022 05:39:26 01/31/20 22 01/30/2022 CMP(C OMPRE HENSI VE METAB OLIC PANEL ) chloride 104 mmol/ L 98-107 Not Available [facility] (Lab) [address], [place], [address], 01/31/2022 05:39:26 01/31/20 22 01/30/2022 CMP(C OMPRE HENSI VE METAB OLIC PANEL ) carbon dioxide 25 mmol/ L 21-31 Not Available [facility] (Lab) [address], [place], [address], 01/31/2022 05:39:26 01/31/20 22 01/30/2022 CMP(C OMPRE HENSI VE METAB OLIC PANEL ) anion gap 11 mmol/ L 4-13 Not Available [facility] (Lab) [address], [place], [address], 01/31/2022 05:39:26 01/31/20 22 01/30/2022 CMP(C OMPRE HENSI VE METAB OLIC PANEL ) blood urea nitrogen 16 mg/dL 7-25 Not Available [facility] (Lab) [address], [place], [address], 01/31/2022 05:39:26 01/31/20 22 01/30/2022 CMP(C OMPRE HENSI VE METAB OLIC PANEL ) creatinine 0.89 mg/dL 0.60-1 .30 Not Available [facility] (Lab) [address], [place], [address], 01/31/2022 05:39:26 01/31/20 22 01/30/2022 CMP(C OMPRE HENSI VE METAB OLIC PANEL ) egfrcr (CKD-epi 2020) 82 mL/mi n/1.7 3_m2 >=60 Not Available [facility] (Lab) [address], [place], [address], 01/31/2022 05:39:26 01/31/20 22 01/30/2022 CMP(C OMPRE HENSI VE METAB OLIC PANEL ) calcium 9.2 mg/dL 8.3-10 .5 Not Available [facility] (Lab) [address], [place], [address], 01/31/2022 05:39:26 01/31/20 22 01/30/2022 CMP(C OMPRE HENSI VE METAB OLIC PANEL ) glucose 64 mg/dL 70-100 low Not Available [facility] (Lab) [address], [place], [address], 01/31/2022 05:39:26 01/31/20 22 01/30/2022 CMP(C OMPRE HENSI VE METAB OLIC PANEL ) protein, total 6.7 g/dL 6.4-8. 3 Not Available [facility] (Lab) [address], [place], [address], 01/31/2022 05:39:26 01/31/20 22 01/30/2022 CMP(C OMPRE HENSI VE METAB OLIC PANEL ) albumin 4.2 g/dL 3.5-5. 0 Not Available [facility] (Lab) [address], [place], [address], 01/31/2022 05:39:26 01/31/20 22 01/30/2022 CMP(C OMPRE HENSI VE METAB OLIC PANEL ) ALT 12 units /L 9-43 Not Available [facility] (Lab) [address] [place], [address], 01/31/2022 05:39:26 01/31/20 22 01/30/2022 CMP(C OMPRE HENSI VE METAB OLIC PANEL ) alkaline phosphatase 54 units /L 34-104 Not Available [facility] (Lab) [address], [place], [address], 01/31/2022 05:39:26 01/31/20 22 01/30/2022 CMP(C OMPRE HENSI VE METAB OLIC PANEL ) AST 11 units /L 13-39 low Not Available [facility] (Lab) [address], [place], [address], 01/31/2022 05:39:26 01/31/20 22 01/30/2022 CMP(C OMPRE HENSI VE METAB OLIC PANEL ) bilirubin, total 0.7 mg/dL 0.2-1. 2 Not Available [facility] (Lab) [address], [place], [address], 01/31/2022 05:39:26 01/31/20 22 01/30/2022 TSH, REFLE X FREE T4 TSH 4.32 uIU/m L 0.30-5 .33 Not Available [facility] (Lab) [address] [place], [address], 01/31/2022 05:39:26 01/31/20 22 01/30/2022 VITAM IN D, 25-OH (TOTA L D2/D3 ) vitamin D, 25-hydroxy, total 63.4 NG/mL 30-80 NOTE: Defic iency : <20 ng/mL Insuf ficie ncy: 20-29 ng/mL Optim um Level : 30-80 ng/mL Possi ble Toxic ity: >80 ng/mL Most patie nts with toxic ity have level s >150 ng/mL . Not Available [facility] (Lab) [address] [place], [address], 01/31/2022 05:39:26 01/31/20 22 01/30/2022 FSH, LH, ESTRA DIOL estradiol 105.0 pg/mL This assay was perfo rmed using [employer] ratio n reage nts and test kits. Value s obtai janeth with other assay metho ds or kits canno t be used inter main eably . Femal e Estra diol Range s: Folli cular phase 12.4- 233 pg/mL Ovula tion phase 41.0- 398 pg/mL Lutea l phase 22.3- 341 pg/mL Postm enopa usal< 5-138 pg/mL Healt hy Pregn ant Women 1st Trime ster1 54-32 43 pg/mL 2nd Trime ster1 561-2 1280 pg/mL 3rd Trime ster8 525-> 43375 pg/mL Not Available [facility] (Lab) [address] [place], [address], 01/31/2022 05:39:27 01/31/20 22 01/30/2022 FSH, LH, ESTRA DIOL FSH 8.0 mIU/m L This assay was perfo rmed using [employer] reage nts and test kits. Value s obtai janeth with other assay metho ds or kits canno t be used inter [employer] [employer] [facility] . Femal es Folli cular : 3.5-1 2.5 mIU/m L Ovula tion: 4.7-2 1.5 mIU/m L Lutea l: 1.7-7 .7 mIU/m L Postm enopa use: 25.8- 134.8 mIU/m L Not Available [facility] (Lab) [address] [place], [address], 01/31/2022 05:39:27 01/31/20 22 01/30/2022 FSH, LH, ESTRA DIOL LH 12.0 mIU/m L This assay was perfo rmed using [employer] reage nts and test kits. Value s obtai janeth with other assay metho ds or kits canno t be used inter main eably . Femal es Mid-F ollic ular: 2.4-1 2.6 mIU/m L Mid-C ycle: 14.0- 95.6 mIU/m L Mid-L uteal : 1.0-1 1.4 mIU/m L Postm enopa use: 7.7-5 8.5 mIU/m L Not Available [facility] (Lab) [address], [place], [address], 01/31/2022 05:39:27 01/31/20 22 01/30/2022 IMAGE GUIDE D PAP AND HPV REGAR DLESS image guided Pap, HPV regardless of Pap result SEE RESULT S BELOW CASE REPOR T: Cytol ogy Gynec ologi jaqui Repor t Case: [id number] Autho immanuel g Provi nathaniel: Geraldine Maurice MD Colle cted: 01/30 1738 Order ing Locat ion: [place] [facility] Recei patsy: 01/31 0148 First Scree n: Molly Ying , CT Speci men: Danyelle blanca Pap - Image d, Vagin a STATE MENT OF ADEQU ACY: Satis facto ry for evalu ation FINAL DIAGN OSIS: Negat johnny for Intra epith elial Lesio n or Hoa small (NIL) . Elect demetrice naidu d by Molly Ying , CT on 022 at 8:16 AM ----- ----- ----- ----- ----- ----- ----- ----- ----- ----- ----- ----- ----- ----- ----- ----- ----- ---- HPV RESUL TS: HPV mRNA E6/E7 : No HPV mRNA Detec cherie NOTE: This high risk HPV mRNA assay detec ts fourt een high- risk HPV types (16, 18, 31, 33, 35, 39, 45, 51, 52, 56, 58, 59, 66, 68) witho ut diffe renti ation . COMME NT: Note: This speci men was revie wed by a Cytot echno logis t and/o r Patho logis t (as indic ated in this repor t) after evalu ation using the Thinp rep Imagi ng Syste m. CLINI JAQUI INFOR MATIO N: Menst rual Statu s: LMP (if appli cable ): Clini jaqui Histo ry/Pr eviou s Pap: Type of Neopl olivia (if appli cable ): Signi fican t Clini jaqui Findi ngs: Other Histo ry: Hormo deanna (if appli cable ): PAP EDUCA AUGUSTINA L NOTE: The Pap Test is a scree blanca test with an inher ent false negat johnny rate. Liqui d-bas ed sampl ing may decre ase, but will not elimi mohinder, false negat johnny resul ts. A negat johnny resul t does not precl ude the prese nce and/o r devel opmen t of disea se, since the prese nce of abnor mal cells in the sampl e depen ds on the locat ion of the lesio n and sampl ing techn ique. Jack nued regul ar scree blanca is the best metho d of cance r preve ntion . If repor cherie cytol ogic findi ng do not corre late with physi jaqui and/o r histo rical findi ngs, furth er inves tigat ion is recom violette d, as clini deb howard nted. Not Available [facility] (Lab) [address], [place], [address], 02/04/2022 09:19:08 03/06/20 22 03/06/2022 MAMMO , scree blanca, bilat eral No observ ation record ed. [email or web address] [place], [place], [address], 03/21/2022 11:14:09 03/17/20 23 03/17/2023 MAMMO , scree blanca, bilat eral No observ ation record ed. [email or web address] [facility] [address], [place], [address], 06/30/2023 14:28:46 03/24/20 24 03/24/2024 MAMMO , danyelle rios, bilat eral No observ ation record ed. [facility] [address], [place], [address], 03/28/2024 10:56:54 Result Notes None recorded. Problems Name Problem SNOMED Code Status Onset Date Resolution Date Notes Provider Name and Address Organization Details Recorded Time Pregnanc y test negative [id number] Completed 201304/11/2021 Negative Test;Prac almas ID: [id number] Puneet santa [facility] 11:19:15 Screenin g for malignan t neoplasm of cervix Completed 201304/11/2021 Pap Smear;Pra ctice ID: [id number] Puneet santa [facility] 11:19:17 Irregula r periods [id number] Completed 201304/11/2021 Irregular menstrual cycle;Pra ctice ID: [id number] Puneet santa [facility] 11:19:[address] Concept Completed 201404/11/2021 Encntr for pharmacist in charge exam (general) (routine) w/o abn findings; Practice ID: [id number] Puneet santa [facility] 11:19:22 Acute vaginiti s [id number] Completed 201504/11/2021 Acute vaginitis ;Practice ID: [id number] Puneet santa [facility] 11:19:08 Screenin g for malignan t neoplasm of rectum Completed 201804/11/2021 Encounter for screening for malignant neoplasm of rectum;Pr actice ID: [id number] Puneet santa [facility] 11:19:19 Syphilis test finding [id number] Completed 201904/11/2021 Encntr screen for infection s w sexl mode of transmiss ;Practice ID: [id number] Puneet santa [facility] 11:19:[address] Concept Completed 201804/11/2021 Encntr for general adult medical exam w/o abnormal findings; Recorded Elsewhere : No Locati on: [facility] So urce: EHR Chron ic: N Practic e ID: [id number] Bill able Time: 03:00:00 PM Puneet santa [facility] 11:19:20 Speciali zed medical examinat ion Completed 201004/11/2021 Routine gynecolog ical examinati on;Practi ce ID: 0001 Puneet santa [facility] 11:19:24 Adult health examinat ion Completed 201304/11/2021 Routine general medical examinati on at a health care facility; Practice ID: [id number] Puneet santa [facility] 11:19:10 Atypical squamous cells of undeterm ined signific ance on cervical Papanico laou smear [id number] Completed 201304/11/2021 Papanicol aou smear of cervix with atypical squamous cells of undetermi janeth significa nce (ASC-US); Recorded Elsewhere : No Locati on: [facility] So urce: EHR Chron ic: N Practic e ID: [id number] Bill able Time: 11:00:00 AM Puneet santa [facility] 11:19:11 Problem Notes None recorded. Procedures Surgical History Date Name Laterality Status Provider Name and Address Organization Details Recorded Time 03/17/20 Date of Last Mammogram completed Latasha Hinojosa [facility] 12/17/2023 12:08:15 01/31/20 22 Date of Last Pap Smear completed Tyra Berrios [facility] 11/27/2022 15:21:49 07/17/20 21 TOTAL HYSTERECTOMY, LAPAROSCOPIC, WITH BILATERAL SALPINGECTOMY (SURG) completed Alexa Thomas [facility] 07/18/2021 10:19:51 11/14/19 21 completed [facility] 10/26/2020 14:36:14 09/01/19 12 abdominoplasty completed [facility] 10/26/2020 14:38:46 09/01/19 08 delivery completed [facility] 10/26/2020 14:38:36 09/01/19 00 Breast reduction completed [facility] 10/26/2020 14:38:17 09/01/18 88 Tonsillectomy completed [facility] 10/26/2020 14:38:07 Tubal Ligation completed [facility] 10/26/2020 14:37:57 Imaging Results Imaging Date Name Status LastModified by Organiz ation Details LastModified Time 03/06/2022 MAMMO, screening, bilateral completed [address] [place] [address], [address], 03/21/2022 11:14:09 03/17/2023 MAMMO, screening, bilateral completed [address], [place], [address], 06/30/2023 14:28:46 03/24/2024 MAMMO, screening, bilateral completed [address], [place], [address], 03/28/2024 10:56:54 Procedure Notes None recorded. Medical Equipment None Reported. Allergies No known drug allergies Medications Name Sig Start Date Stop Date Status Note LastModified by Organization Details LastModified Time cyclobenz aprine 10 mg tablet TAKE 1 TABLET BY MOUTH TWICE DAILY NEEDED FOR 7 DAYS 05/12 completed Not Available Not Available Not Available prednison e 10 mg tablet TAKE 3 TABLETS BY MOUTH ONCE DAILY FOR 5 DAYS 04/30 completed Not Available Not Available Not Available doxycycli ne hyclate 100 mg capsule TAKE 1 CAPSULE BY MOUTH ONCE DAILY 05/12 completed Not Available Not Available Not Available trazodone 50 mg tablet TAKE 1 TABLET BY MOUTH ONCE DAILY AT BEDTIME active Not Available Not Available No t Available ibuprofen 800 mg tablet TAKE 1 TABLET BY MOUTH EVERY 6 TO 8 HOURS NEEDED FOR PAIN 05/12 completed Not Available Not Available Not Available hydrocodo ne 5 mg-acetam inophen 325 mg tablet TAKE 1 TABLET BY MOUTH EVERY 4 TO 6 HOURS NEEDED FOR PAIN 01/30 completed Not Available Not Available Not Available prazosin 1 mg capsule TAKE 1 CAPSULE BY MOUTH ONCE DAILY AT BEDTIME 12/16 completed Not Available Not Available Not Available naltrexon e 50 mg tablet TAKE 1/4 (ONE-FOU RTH) TABLET BY MOUTH ONCE DAILY WITH THE WELLBUTR IN 12/16 completed Not Available Not Available Not Available ondansetr on HCl 4 mg tablet TAKE 1 TABLET BY MOUTH EVERY 8 HOURS 01/30 completed Not Available Not Available Not Available prednison e 20 mg tablet TAKE 1 TABLET BY MOUTH THREE TIMES DAILY FOR 4 DAYS THEN 1 TWICE DAILY FOR 3 DAYS THEN 1 ONCE DAILY FOR 3 DAYS 05/12 completed Not Available Not Available Not Available [facility] Levothyro xine Sodium 100 mcg tablet 11/27 completed Not Available Not Available Not Available phentermi ne 37.5 mg tablet TAKE 1 TABLET BY MOUTH IN THE MORNING BEFORE BREAKFAS T 01/30 completed Not Available Not Available Not Available valacyclo vir 500 mg tablet TAKE 1 TABLET BY MOUTH ONCE DAILY active Not Available Not Available No t Available levothyro xine 100 mcg tablet TAKE 1 TABLET BY MOUTH IN THE MORNING active Not Available Not Available No t Available oxycodone -acetamin ophen 5 mg-325 mg tablet TAKE 1 TABLET BY MOUTH EVERY 6 HOURS NEEDED FOR PAIN FOR 7 DAYS 05/01 completed Not Available Not Available Not Available amoxicill in 875 mg tablet TAKE 1 TABLET BY MOUTH TWICE DAILY UNTIL GONE 12/16 completed Not Available Not Available Not Available Metrogel Vaginal 0.75 % (37.5 mg/5 gram) insert 1 applicat orful by vaginal route for 5 nights at bedtime 09/21 completed Prescrib ed Elsewher e: No Locat ion: [facility] odify By: anali menchaca DateTime : 10/18/19 17 01:34:25 PM Not Available Not Available Not Available famotidin e 20 mg tablet TAKE 1 TABLET BY MOUTH EVERY 12 HOURS FOR 5 DAYS 01/30 completed Not Available Not Available Not Available estradiol 1 mg tablet Take 1 tablet every day by oral route. 11/27 completed Not Available Not Available Not Available dicyclomi ne 20 mg tablet TAKE 1 TABLET BY MOUTH THREE TIMES DAILY 11/27 completed Not Available Not Available Not Available Synthroid 25 mcg tablet take 1 tablet by oral route every day 11/27 completed Prescrib ed Elsewher e: Yes Loca tion: Qiana mcduffie [facility] odify By: camila Ballard ter DateTime : 08/02/20 16 08:15:00 AM Not Available Not Available Not Available Flagyl 500 mg tablet take 1 tablet by oral route every 12 hours 10/25 completed Prescrib ed Elsewher e: No Locat ion: Qiana [facility] odify By: camila Ballard ter DateTime : 10/25/19 17 02:14:07 PM Not Available Not Available Not Available benzonata te 100 mg capsule TAKE 1 CAPSULE BY MOUTH EVERY 8 HOURS NEEDED FOR COUGH 04/30 completed Not Available Not Available Not Available Euthyrox 88 mcg tablet TAKE 1 TABLET BY MOUTH ONCE DAILY 05/01 completed Not Available Not Available Not Available mupirocin calcium 2 % topical cream 05/12 completed Not Available Not Available Not Available sertralin e 25 mg tablet 11/27 completed Not Available Not Available Not Available acyclovir 200 mg capsule take 1 capsule by oral route every 4 hours 5 times per day 05/01 completed Prescrib ed Elsewher e: Yes Loca tion: Sarah Bethrebecca [facility] odify By: lorraine menchaca DateTime : 09/08/19 19 03:00:00 PM Not Available Not Available Not Available ibuprofen 600 mg tablet TAKE 1 TABLET BY MOUTH THREE TIMES DAILY NEEDED FOR 7 DAYS 05/01 completed Not Available Not Available Not Available albuterol sulfate HFA 90 mcg/actua tion aerosol inhaler INHALE 2 PUFFS BY MOUTH EVERY 4 HOURS NEEDED FOR DYSPNEA 01/30 completed Not Available Not Available Not Available Vitamin D2 1,250 mcg (50,000 unit) capsule take 1 capsule by oral route every week 08/02 completed Prescrib ed Elsewher e: No Locat ion: Qiana mcduffie [facility] odify By: camila purdy DateTime : 08/07/20 15 03:23:58 PM Not Available Not Available Not Available methylphe nidate ER 18 mg tablet,ex tended release 24 hr TAKE 1 TABLET BY MOUTH ONCE DAILY IN THE MORNING active Not Available Not Available No t Available fluticaso ne propionat e 50 mcg/actua tion nasal spray,danielle pension USE 1 TO 2 SPRAY(S) IN EACH NOSTRIL TWICE DAILY AIM BACK, UP, AND OUT 12/16 completed Not Available Not Available Not Available sertralin e 50 mg tablet 11/27 completed Not Available Not Available Not Available phentermi ne 37.5 mg capsule TAKE 1 CAPSULE BY MOUTH BEFORE BREAKFAS T 12/16 completed Not Available Not Available Not Available amoxicill in 875 mg-potass ium clavulana te 125 mg tablet TAKE 1 TABLET BY MOUTH EVERY 12 HOURS FOR 10 DAYS 04/30 completed Not Available Not Available Not Available atomoxeti ne 25 mg capsule TAKE 2 CAPSULES BY MOUTH ONCE DAILY 12/16 completed Not Available Not Available Not Available aripipraz ole 5 mg tablet 11/27 completed Not Available Not Available Not Available bupropion HCl XL 300 mg 24 hr tablet, extended release TAKE 1 TABLET BY MOUTH ONCE DAILY 12/16 completed Not Available Not Available Not Available bupropion HCl XL 150 mg 24 hr tablet, extended release TAKE 1 TABLET BY MOUTH ONCE DAILY IN THE MORNING 12/16 completed Not Available Not Available Not Available nitrofura ntoin monohydra te/macroc rystals 100 mg capsule Take 1 capsule every 12 hours by oral route for 7 days. 04/30 completed Not Available Not Available Not Available duloxetin e 30 mg capsule,d elayed release TAKE 1 CAPSULE BY MOUTH ONCE DAILY active Not Available Not Available No t Available duloxetin e 60 mg capsule,d elayed release TAKE 1 CAPSULE BY MOUTH ONCE DAILY 12/16 completed Not Available Not Available Not Available Concerta 12/16 completed Not Available Not Available Not Available Tirosint 88 mcg capsule take 1 capsule by oral route every day 08/02 completed Prescrib ed Elsewher e: Yes Loca tion: [facility] odify By: [email or web address] trick En counter DateTime : 07/27/20 09:00:00 AM Not Available Not Available Not Available Qsymia 3.75 mg-23 mg capsule, extended release TAKE 1 CAPSULE BY MOUTH IN THE MORNING FOR 2 WEEKS, THEN TAKE 2 CAPSULES IN THE MORNING FROM THEN ON IF TOLERATI NG 12/16 completed Not Available Not Available Not Available Rexulti 0.5 mg tablet TAKE 1 TABLET BY MOUTH ONCE DAILY FOR 30 DAYS 12/16 completed Not Available Not Available Not Available Vraylar 1.5 mg capsule TAKE 1 CAPSULE BY MOUTH ONCE DAILY FOR 30 DAYS 12/16 completed Not Available Not Available Not Available Vraylar 11/27 completed Not Available Not Available Not Available ID NOW COVID-19 Test Kit TEST DIRECTED TODAY 11/27 completed Not Available Not Available Not Available Wegovy 0.25 mg/0.5 mL subcutane ous pen injector INJECT 0.25 MG INTO THE SKIN ONCE A WEEK active Not Available Not Available No t Available Vitals Date Recorded Body height Body mass index (BMI) Body weight Systolic blood pressure Diastolic blood pressure Provider Name and Address Organization Details Last Updated DateTime 07/25/2021 152.4 cm 32.2 kg/m2 01820.74 g 113 mm[Hg] 77 mm[Hg] Rhiannon Nae [facility] 13:59:44 Date Recorded Body height Body mass index (BMI) Body weight Systolic blood pressure Diastolic blood pressure Provider Name and Address Organization Details Last Updated DateTime 01/30/2022 152.4 cm 28.7 kg/m2 33317.08 g 122 mm[Hg] 85 mm[Hg] Rhiannon Soni [facility] 2 17:41:09 Date Recorded Body height Body mass index (BMI) Body weight Systolic blood pressure Diastolic blood pressure Provider Name and Address Organization Details Last Updated DateTime 11/27/2022 154.94 cm 31.4 kg/m2 47520.33 g 115 mm[Hg] 80 mm[Hg] Tyra Berrios [facility] 3 15:19:32 Date Recorded Body height Body mass index (BMI) Body weight Systolic blood pressure Diastolic blood pressure Provider Name and Address Organization Details Last Updated DateTime 12/17/2023 154.94 cm 32.1 kg/m2 39628.7 g 127 mm[Hg] 85 mm[Hg] Latasha Hinojosa [facility] 4 12:04:41 Social History Question Answer Notes LastModified by Organizat ion Details LastModified Time Tobacco Smoking Status Current Some Day Smoker Tyra Berrios [facility], [facility] 11/27/2022 15:19:47 What Is Your Level Of Alcohol Consumption? Occasional Information not available 11/27/2022 How Many Years Have You Consumed Alcohol? 35 Information not available 12/17/2023 Are You Blind Or Do You Have Difficulty Seeing? No Information not available 04/11/2021 What Is Your Level Of Caffeine Consumption? Moderate Information not available 11/27/2022 In The 14 Days Before Symptom Onset, Have You Had Close Contact With A Laboratory-confir med COVID-19 While That Case Was Ill? No Information not available 11/27/2022 In The 14 Days Before Symptom Onset, Have You Had Close Contact With A Person Who Is Under Investigation For COVID-19 While That Person Was Ill? No Information not available 11/27/2022 Have You Been To An Area Known To Be High Risk For COVID-19? No Information not available 11/27/2022 Are You Deaf Or Do You Have Serious Difficulty Hearing? No Information not available 04/11/2021 What Type Of Diet Are You Following? REGULAR Information not available 04/11/2021 What Is The Highest Grade Or Level Of School You Have Completed Or The Highest Degree You Have Received? 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 No Information not available 11/27/2022 Do You Use Protection During Sex? No Information not available 11/27/2022 Do You Use Your Seat Belt Or Car Seat Routinely? Yes Information not available 11/27/2022 Do You Have Smoke And Carbon Monoxide Detectors In Your Home? Yes Information not available 11/27/2022 At What Age Did You Start Smoking Tobacco? 12 Information not available 12/17/2023 How Much Tobacco Do You Smoke? 0.5 PPD Information not available 12/17/2023 Do You Feel Stressed (tense, Restless, Nervous, Or Anxious, Or Unable To Sleep At Night)? [id number] Information not available 11/27/2022 Do You Use Any Illicit Or Recreational Drugs? No Information not available 11/27/2022 Do You Use Sunscreen Routinely? No Information not available 11/27/2022 How Many Years Have You Smoked Tobacco? 31 Information not available 12/17/2023 Have You Used IV Drugs? No Information not available 11/27/2022 Sex: Unknown Functional Status Question Answer Note LastModified by Organizat ion Details LastModified Time Are you able to walk? YESWOREST Information not available 04/11/2021 What is your exercise level? Occasional Information not available 04/11/2021 Mental Status None recorded. Family History Relationship Description Onset Age of this Age Resolved Age Notes LastModified by Organization Details LastModified Time Mother Anemia Not available 10/26/2020 14:37:15 Mother Disorder of thyroid gland [email or web address] Not available 2020 14:37:24 Sister Hypertensive disorder [email or web address] Not available 2020 14:37:31 Sister Disorder of thyroid gland [email or web address] Not available 2020 14:37:38 Medical History Condition Response History of abnormal pap Y Anemia Y Thyroid Problems Y Gynecological History Statement/Question Response Date of Last Mammogram 03/17/2023 On BCP's at Conception? N N Was last menstrual period normal Y STIs/STDs N HPV Vaccine N 11/13/2020 12 Current Control Method Hysterectom y Age at First Child 16 Are cycles usually normal Y Sexually Active? Y Menses Monthly N Age of first menstrual cycle 10 Date of Last Pap Smear 01/30/2022 Sexual Problems? N LMP Unknown N Obstetrics History GPAL:G 5 P 2 2 1 4 Type Value Multiple Births 1 Full Term 2 Spontaneous 1 Premature 2 Living 4 Total 5 Past Encounters Encounter ID Performer Location Encounter Start Date Encounter Closed Date Diagnosis/Indication Diagnosis SNOMED-CT Code Diagnosis ICD10 Code Diagnosis Note [id number] Hood Maurice MD [facility] [address] [address] 10/26/2020 14:21:05 10/26/2020 15:01:18 Gynecologic examination [id number] Z01.419 This patient is here for her annual exam. A thorough history was taken. A physical exam was performed. Age appropriat e routine health screening was ordered, performed, and discussed. Recommende d testing was ordered. She was asked to follow up in one year. She will be informed of any test results. 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 Vag swabs sent to r/o infection Patient is to contact office or go to nearest ED/Urgent care if fever >/= 100.1, pain, excessive bleeding, unusual drainage or swelling in area of concern; or experienci ng worsening sx's or new onset of concerning sx's. Understand ing verbalized . All questions answered to patient satisfacti on. Urinary symptoms [id number] R39.9 Neg [id number] Gini Medley [facility] [address] [address] 04/16/2021 14:43:19 04/16/2021 15:21:40 Pain in pelvis 03060240 R10.2 [id number] Mary Chappell , [facility] [address] [address] 05/01/2021 14:36:15 05/01/2021 15:56:44 Uterine leiomyoma 29751294 D25.9 R10.2 TVUS reviewed.I have advised MD consult Dr. Maurice to further review US & discuss options for this issue.She is agreeable to plan & her questions answered today.PCP has updated additional labs.Will have them sent here. Patient is to contact office or go to nearest ED/Urgent care if fever >/= 100.1, pain, excessive bleeding, unusual drainage or swelling in area of concern; or experienci ng worsening sx's or new onset of concerning sx's. Understand ing verbalized . All questions answered to patient satisfacti on. Time spent in visit is a total of 15 mins with at least 50% of visit consisting of counseling and review of plan of care.Addit ional precaution gibson measures were taken to minimize potential exposure to the Covid-19 virus during this patient s visit, including available hand unit tender upon arrive, temperatur e check and being asked a series of screening questions. All staff wore face coverings during this encounter, as well as provided additional cleaning and sanitizing of all surfaces, including countertop s, pens, chairs, door handles, light switches, etc, prior to and following the patient s visit. [id number] Hood Maurice MD [facility] [address] [address] 05/12/2021 09:21:40 05/12/2021 10:35:05 Menorrhagia 455480240 N92.0 Pain in pelvis 88444863 R10.2 this patient is a 40-year-ol d female who has severe menorrhagi a and severe pelvic pain. We discussed medical treatment in detail. Patient needs definitive surgical treatment. She has profound pain that severely affects her quality of life and activities of daily living in her [facility] ips. We have agreed to perform total laparoscop ic hysterecto my and bilateral salpingect carisa. We talked about the procedure in detail. We talked about the risks and benefits of all the other options are available to her for these problems. We spent more than 25 minutes face-to-fa ce discussing these very complex topics and agreed to perform surgery, major surgery. [id number] Hood Maurice MD [facility] [address],[place] [address] 07/11/2021 13:52:19 07/11/2021 14:43:11 Menorrhagia 480348030 N92.0 this patient is a 41-year-ol d female with severe menorrhagi a and dysmenorrh ea. We have agreed to perform total laparoscop ic hysterecto my bilateral salpingect carisa. She understand s the risks, benefits, and alternativ es. She has completed the informed consent process and is ready to proceed. Dysmenorrhea [id number] N 94.6 [id number] Hood Maurice MD [facility] [address],[place] [address] 07/20/2021 11:45:26 07/20/2021 11:46:02 [id number] Hood Maurice MD [facility] [address],[facility] [address] 07/25/2021 13:47:56 07/25/2021 14:24:46 Postoperative care [id number] Z48.89 This patient is a 41-year-ol d female who presents for postop follow-up. She is 1 week postop from a total laparoscop ic hysterecto my and bilateral salpingect carisa. Her incisions are clean dry and intact. She is recovering normally. She denies any nausea, vomiting, fever, chills. She denies any abnormal vaginal discharge. She denies any vaginal bleeding. She will follow up as needed. [id number] Hood Maurice MD [facility] [address] [address] 01/30/2022 17:30:43 01/30/2022 18:27:35 Gynecologic examination 19830376 Z01.419 This patient is here for her annual exam. A thorough history was taken. A physical exam was performed. Age appropriat e routine health screening was ordered, performed, and discussed. Recommende d testing was ordered. She was asked to follow up in one year. She will be informed of any test results. Mammogram - [ Mammogram is scheduled] Pap - today Menopausal symptom 76065 002 N95.1 [id number] LUCIA Bey [facility] [address] [address] 11/27/2022 14:44:45 11/27/2022 17:46:26 Screening for malignant neoplasm of breast 130383904 Z12.39 Gynecologi c examination 84076701 Z01.419 Suggested Calcium with Vitamin D 1200-1500m g daily. Patient advised to get an annual flu shot in the fall and she could obtain at [facility] or [facility] clinic. Also to obtain TDap vaccinatio n if you have not had one in the last 10 years. Recommend yearly mammograms . Encouraged monthly self breast exams. Encourage safe sexual practices, to use condoms and limit partners if not already in a monogamous relationsh ip. Engage in daily exercise of low impact aerobic exercise 45-60 minutes 4-5 times weekly. Avoid tobacco and illicit drugs as well as using moderation with alcohol intake less than 1-2 8 oz beverages daily. This lifestyle behavior pattern will lead to less health conditions and longer life span. If BMI greater than 25 weight watchers or dietary consult advised. All questions have been answered. Patient appears to understand informatio n, but if you have any questions please call or respond to this email. WWEhyst in 2020 for AUB/fibroi ds for non-cancer ous indication s. Ovaries remainDoin g well, no issuesSTI testing declinedma mmogram order givenUTD with PCPFam hx reviewedRT C in 1 year or sooner if needed [id number] Mary Chappell , [facility] [address] [address] 12/17/2023 11:59:55 12/17/2023 21:01:42 Gynecologic examination [id number] Z01.419 Suggested Calcium with Vitamin D 1200-1500m g daily. Patient advised to get an annual flu shot in the fall and she could obtain at [facility] or [facility] care clinic. Also to obtain TDap vaccinatio n if you have not had one in the last 10 years. Recommend yearly mammograms . Encouraged monthly self breast exams. Encourage safe sexual practices, to use condoms and limit partners if not already in a monogamous relationsh ip. Engage in daily exercise of low impact aerobic exercise 45-60 minutes 4-5 times weekly. Avoid tobacco and illicit drugs as well as using moderation with alcohol intake less than 1-2 8 oz beverages daily. This lifestyle behavior pattern will lead to less health conditions and longer life span. If BMI greater than 25 weight watchers or dietary consult advised. All questions have been answered. Patient appears to understand informatio n, but if you have any questions please call or respond to this email. Pap/hpv USPSTF recommends against screening for cervical cancer in women older than 65yo, those who've had a hysterecto my for non-cancer indication s, & who have had adequate prior screening & are not otherwise at high risk for cervical cancer. STD Screen declined Genetic Screen discussed Colon Screen PCP Dexa Screen na Routine Labs PCP Screening mammography 24 543232 Z12.31 Health Concerns Section Related Observation LastModified by Organization Detai ls LastModified Time None Recorded Concern Status LastModified by Organization Details LastModified Time None Recorded Advance Directives Directive None Recorded Payers Encounter Date Sequence Insurance Name Policy Number Policy Castillo Covered Member ID Castillo Member ID Guarantor Name 07/17/2021 1 [place] [id number] 1 Eliane Conley [id number] Eliane Conley 07/25/2021 1 [place] [id number] 1 Eliane Conley [id number] Eliane Conley 01/30/2022 1 [place] [id number] 1 Eliane Conley [id number] Eliane Conley 01/30/2022 2 [place] [facility] Eliane Conley [id number] Eliane Conley 11/27/2022 2 [place] [facility] Eliane Conley [id number] Eliane Conley 11/27/2022 1 [place] [employer] [employer] 104 Eliane Conley [id number] Eliane Conley 12/17/2023 2 [place] [facility] Eliane Conley [id number] Elinae Conley 12/17/2023 1 [place] [facility] [employer] 104 Eliane Conley [id number] Eliane Conley Notes Date Note Type Note Provider Name and Address Organization Details Recorded Time 07/25/2021 text/html This patient is a 41-year-old female who presents for postop follow-up. She is 1 week postop from a total laparoscopic hysterectomy and bilateral salpingectomy. Her incisions are clean dry and intact. She is recovering normally. She denies any nausea, vomiting, fever, chills. She denies any abnormal vaginal discharge. She denies any vaginal bleeding. She will follow up as needed. Hood Maurice MD [address], [place], [address], [facility] 07/25/2021 14:23:43 01/30/2022 text/html Annual GYNReport ed bypatient.History: no gynecologic complaints Menstrual cycle:status post hysterectomy Urinary symptoms:No hematuria; No incontinence Vulva:No genital lesion Vagina:Normal vaginal discharge Breast:No breast pain; No breast lump; No nipple discharge Sexual complaints:No sexual complaints; No pain during intercourse Menopausal Symptoms:Hot flashes;Insomnia due to night sweats Psychological symptoms:Depressio n;Anxiety; treated by psych Preventive measures:Encourage self breast examination; Encourage regular exercise Hood Maurice MD [address], [place], [address], [facility] 01/30/2022 18:21:49 11/27/2022 text/html Annual GYNReport ed bypatient.History: no gynecologic complaints Vulva:No genital lesion Vagina:Normal vaginal discharge Breast:No breast pain; No breast lump; No nipple discharge Current Contraception:hyst Sexual complaints:No sexual complaints; No pain during intercourse; Normal libido Menopausal Symptoms:No menopausal symptoms; Normal vaginal lubrication Psychological symptoms:No depression; No anxiety; No PMDD Preventive measures:Encourage self breast examination; Encourage regular exercise; Encourage no tobacco use; Encourage regular mammograms starting age 40 LUCIA Bey [address], [place], [address], [facility] 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 bypatient.Menopaus al Symptoms:no menopausal symptoms; normal vaginal lubrication Vaginal Bleeding:history of menopause having occurred; no history of post menopausal bleeding Urinary Symptoms:no hematuria; no incontinence; no nocturia; no urinary frequency Vulva:no genital lesion; no vulvar atrophy Vagina:normal vaginal discharge; no vaginal atrophy Breast:no breast lump; no nipple discharge; no breast pain Sexual Complaints:no sexual complaints Psychological Symptoms:no depression; no anxiety Preventive Measures:encourage regular mammograms starting age 40; encourage self breast examination; encourage regular exercise; encourage no tobacco use; needs to schedule mammogram; history of recent colonoscopy (PCP) LUCIA Cheney- [address], [place], [address], [facility] 12/17/2023 17:41:45 OBGyn Episode Ob Episode Information Episode Created Date Number of Fetuses Patient Bloodtype Patient rh Status Prepregnancy Weight lbs Domestic Partner Domestic Partner Phone Father Name Electrical Inspector Status 10/26/19 21 2 CLOSED Fetus Data First Name Last Name Admitted to NICU Weight (g) Sex Living Outcome Pediatric Complications Fetus ID Race Codes Race Delivery Type 2721.55 2 M Prematur e 8132 Primary 2267.96 M Prematur e 8133 Primary Roger Calculation Initial Roger Date Initial Exam Date Initial Exam Provider Initial Ultrasound Date Last Menstrual Period Date Ultra Sound Weeks Gestation 0 Eighteen To Twenty Week Roger Update Ultra Sound Date Fundal Height At Umbil Quickening Date Ultra Sound Latest Weeks Gestation Final Roger Confirmed By Final Roger Confirmed Date Final Roger Date Ultra Sound Latest Days Gestation 0 0 Menstrual History Last Menstrual Date Menses Monthly On Bcp Conception Prior Menses Frequency Hcg Plus Date Menarche Onset Age Delivery Information Delivery Date Delivery Type Labor Anesthesia Weeks Gestation Incision Type Labor Labor Length Hrs Delivered By Post Complications Tubal Sterilization Discharge Date Comments 8 35 true Guero and Bonifacio Discharge Information Feeding Method Contraceptive Method Maternal HG B and HCT Levels Ob Episode Information Episode Created Date Number of Fetuses Patient Bloodtype Patient rh Status Prepregnancy Weight lbs Domestic Partner Domestic Partner Phone Father Name Electrical Inspector Status 10/26/19 21 1 CLOSED Fetus Data First Name Last Name Admitted to NICU Weight (g) Sex Living Outcome Pediatric Complications Fetus ID Race Codes Race Delivery Type 2721.55 2 M Full Term 8134 Vaginal Delivery Roger Calculation Initial Roger Date Initial Exam Date Initial Exam Provider Initial Ultrasound Date Last Menstrual Period Date Ultra Sound Weeks Gestation 0 Eighteen To Twenty Week Roger Update Ultra Sound Date Fundal Height At Umbil Quickening Date Ultra Sound Latest Weeks Gestation Final Roger Confirmed By Final Roger Confirmed Date Final Roger Date Ultra Sound Latest Days Gestation 0 0 Menstrual History Last Menstrual Date Menses Monthly On Bcp Conception Prior Menses Frequency Hcg Plus Date Menarche Onset Age Delivery Information Delivery Date Delivery Type Labor Anesthesia Weeks Gestation Incision Type Labor Labor Length Hrs Delivered By Post Complications Tubal Sterilization Discharge Date Comments 3 38 Hasmukh Discharge Information Feeding Method Contraceptive Method Maternal HG B and HCT Levels Ob Episode Information Episode Created Date Number of Fetuses Patient Bloodtype Patient rh Status Prepregnancy Weight lbs Domestic Partner Domestic Partner Phone Father Name Electrical Inspector Status 10/26/19 21 1 CLOSED Fetus Data First Name Last Name Admitted to NICU Weight (g) Sex Living Outcome Pediatric Complications Fetus ID Race Codes Race Delivery Type , Spontane ous [id number] Roger Calculation Initial Roger Date Initial Exam Date Initial Exam Provider Initial Ultrasound Date Last Menstrual Period Date Ultra Sound Weeks Gestation 0 Eighteen To Twenty Week Roger Update Ultra Sound Date Fundal Height At Umbil Quickening Date Ultra Sound Latest Weeks Gestation Final Roger Confirmed By Final Roger Confirmed Date Final Roger Date Ultra Sound Latest Days Gestation 0 0 Menstrual History Last Menstrual Date Menses Monthly On Bcp Conception Prior Menses Frequency Hcg Plus Date Menarche Onset Age Delivery Information Delivery Date Delivery Type Labor Anesthesia Weeks Gestation Incision Type Labor Labor Length Hrs Delivered By Post Complications Tubal Sterilization Discharge Date Comments 3 Discharge Information Feeding Method Contraceptive Method Maternal HG B and HCT Levels Ob Episode Information Episode Created Date Number of Fetuses Patient Bloodtype Patient rh Status Prepregnancy Weight lbs Domestic Partner Domestic Partner Phone Father Name Electrical Inspector Status 10/26/19 21 1 CLOSED Fetus Data First Name Last Name Admitted to NICU Weight (g) Sex Living Outcome Pediatric Complications Fetus ID Race Codes Race Delivery Type F Full Term [id number] Vaginal Delivery Roger Calculation Initial Roger Date Initial Exam Date Initial Exam Provider Initial Ultrasound Date Last Menstrual Period Date Ultra Sound Weeks Gestation 0 Eighteen To Twenty Week Roger Update Ultra Sound Date Fundal Height At Umbil Quickening Date Ultra Sound Latest Weeks Gestation Final Roger Confirmed By Final Roger Confirmed Date Final Roger Date Ultra Sound Latest Days Gestation 0 0 Menstrual History Last Menstrual Date Menses Monthly On Bcp Conception Prior Menses Frequency Hcg Plus Date Menarche Onset Age Delivery Information Delivery Date Delivery Type Labor Anesthesia Weeks Gestation Incision Type Labor Labor Length Hrs Delivered By Post Complications Tubal Sterilization Discharge Date Comments 6 38 Venita Preeclamp leo Discharge Information Feeding Method Contraceptive Method Maternal HG B and HCT Levels Ob Episode Information Episode Created Date Number of Fetuses Patient Bloodtype Patient rh Status Prepregnancy Weight lbs Domestic Partner Domestic Partner Phone Father Name Electrical Inspector Status 10/26/19 21 1 CLOSED Fetus Data First Name Last Name Admitted to NICU Weight (g) Sex Living Outcome Pediatric Complications Fetus ID Race Codes Race Delivery Type [id number] F Full Term [id number] Vaginal Delivery Roger Calculation Initial Roger Date Initial Exam Date Initial Exam Provider Initial Ultrasound Date Last Menstrual Period Date Ultra Sound Weeks Gestation 0 Eighteen To Twenty Week Roger Update Ultra Sound Date Fundal Height At Umbil Quickening Date Ultra Sound Latest Weeks Gestation Final Roger Confirmed By Final Roger Confirmed Date Final Roger Date Ultra Sound Latest Days Gestation 0 0 Menstrual History Last Menstrual Date Menses Monthly On Bcp Conception Prior Menses Frequency Hcg Plus Date Menarche Onset Age Delivery Information Delivery Date Delivery Type Labor Anesthesia Weeks Gestation Incision Type Labor Labor Length Hrs Delivered By Post Complications Tubal Sterilization Discharge Date Comments 0 38 Toshia Discharge Information Feeding Method Contraceptive Method Maternal HG B and HCT Levels
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
--- OUTSIDE RECORDS SUMMARY | 2024-11-10 18:05 | XMS_ITS | Clinical Summary ---
Author Organization [facility] Address [address] Ibarra: Epic Prelude ADT [place] [id number] Care Team Providers Care Spray Drier Name Role Phone Unavailable Primary Care Provider Unavailabl e Medications semaglutide, weight loss, (Wegovy) 1 mg/0.5 mL Pen Injector Inject 0.5 mL (1 mg) by subcutaneous injection every 7 days for weight loss 2 mL 1 05/22/2024 1:19 PM CDT 4 Active semaglutide, weight loss, (Wegovy) 1 mg/0.5 mL Pen Injector Inject 0.5 mL (1 mg) by subcutaneous injection every 7 days. 2 mL 2 10/10/2024 3:15 PM REAL ESTATE AGENCY PRINCIPAL 4 Active sodium, potassium and magnesium sulfates (SUPREP) 17.5-3.13-1.6 gram Recon Soln Take 177 mLs by mouth every 12 (twelve) hours per GI instructions 354 mL 10/02/2024 12:57 PM REAL ESTATE AGENCY PRINCIPAL 5 Active Encounters Date Type Department Care Team Description 11/09/2024 External Device Data [facility] Provider, Abstract 10/12/2024 External Device Data [facility] Provider, Abstract from Last 3 Months Social History Tobacco Use Types Packs/Day Years Used Date Smoking Tobacco: Never Assessed Comments Unknown Sex and Gender Information Value Date Recorded Sex Assigned at Not on file Legal Sex Female 9:44 PM CDT Gender Identity Not on file Sexual Orientation Not on file Plan of Treatment Health Maintenance Due Date Last Done Comments DTAP/TDAP/TD VACCINES (1 - Tdap) 1997 HEPATITIS B VACCINES (1 of 3 - 19+ 3-dose series) 1997 CERVICAL CANCER SCREENING 2008 BREAST CANCER SCREENING 2018 COLORECTAL SCREENING 2023 Colorectal Cancer Screening 2023 FIT-DNA Q 3 years 2023 FIT/FOBT Q 1 year 2023 Flex Sig/CT Colonography Q 5 years 2023 INFLUENZA VACCINE (#1) 2024 HPV VACCINES Aged Out No longer eligi ble based on patient's age to complete this topic Insurance RX [facility] [employer]
--- OUTSIDE RECORDS SUMMARY | 2024-11-10 18:05 | XMS_ITS | Referral Summary ---
Author Organization [facility] al Address [address] [place] [address] Care Team Providers Care Manager Storage Name Role Phone Unknown, Notinfile Primary Care Provider Unavail able Allergies No known active allergies Medications lidocaine (XYLOCAINE) 5 % ointment Apply topically 2 (two) times a day as needed for pain 30 g 0 Active ibuprofen (ADVIL,MOTRIN) 600 mg tablet Take 1 tablet (600 mg total) by mouth every 6 (six) hours as needed for pain 20 tablet 0 Active Social History Tobacco Use Types Packs/Day Years Used Date Smoking Tobacco: Every Day Smokeless Tobacco: Current Alcohol Use Standard Drinks/Week Comments Not Currently 0 (1 standard drink = 0.6 oz pur e alcohol) Personal Safety Answer Date Recorded Getting School Help Needed Not on file 10/25 Comments No Sex and Gender Information Value Date Recorded Sex Assigned at Not on file Legal Sex Female 3:50 AM [employer] Gender Identity Not on file Sexual Orientation Not on file Last Filed Vital Signs Vital Sign Reading Time Taken Comments Blood Pressure 129/85 01/08/2022 1:54 AM CDT Pulse 78 01/08/2022 1:54 AM CDT Temperature 36.7 C (98 F) 01/08/2022 1:54 AM CDT Respiratory Rate 16 01/08/2022 1:54 AM CDT Oxygen Saturation 99% 01/08/2022 1:54 AM CDT Inhaled Oxygen Concentration - - Weight 66.6 kg (146 lb 13.2 oz) 01/07/2022 7:39 PM CDT Height 157.5 cm (5' 2 ) 01/07/2022 7:39 PM CDT Body Mass Index 26.85 01/07/2022 7:39 PM CDT Plan of Treatment Not on file Insurance ANTHEM PREFERRED ANTHEM PREFERRED ANTHEM PREFERRED WORKERS COMPENSATION GENERIC Care Teams Manager Storage Relationship Specialty Start Date End Date Unknown, Notinfile PCP - General 01/07/22
--- OUTSIDE RECORDS SUMMARY | 2024-11-10 18:05 | XMS_ITS ---
Author Organization [facility] [employer] Address [address] [facility] [address] [place] [address] Care Team Providers Care Divemaster Name Role Phone Padma SON, Mable Primary Care Provider Unavaila Rowena Cruz Unavailable [phone] Allergies No Known Allergies Results Component Value Reference Range Notes UDT Reviewed date:10/13/2024 02:43:34 PM Interpretation: Performing Lab: Notes/Report: THC NEG 0 - 50 ng/ml Cocaine NEG 0 - 300 ng/ml Amphetamine NEG 0 - 1000 ng/ml Buprenorphine (BUP) NEG 0 - 10 ng/ml Secobarbital (Bar) NEG 0 - 300 ng/ml Oxazepam (BZO) NEG 0 - 300 ng/ml 6-jxssacjash-3,0-bvsvrbjl-8,3-diphenylpyrrolidine (EFRAIN P) NEG 0 - 300 ng/ml Methamphetamine (MET) NEG 0 - 1000 ng/ml Methylenedioxymethamphetamine (MDMA) NEG 0 - 500 ng/ml Morphine (MOP 300/[id number]) NEG 0 - 300 ng/ml Methadone (MTD) NEG 0 - 300 ng/ml Phencyclidine (PCP) NEG 0 - 25 ng/ml Nortriptyline (TCA) NEG 0 - 1000 ng/ml Oxycodone NEG 0 - 300 ng/ml x NEG 0 - 300 ng/ml REASON FOR VISIT 3 month f/u, States she is currently smoking cigarettes and she wants to quit smoking, Elevated or Hypertensive blood pressure reading, Depression screening positive, exam JH Medications Medication SIG (Take, Route, Frequency, Duration) Notes Start Date End Date Status DULoxetine HCl 60 MG 1 cap Oral twice a day for 90 days Active Varenicline Tartrate 0.5 MG 1 Orally Once a day for 8 days for 4 days, then once tablet twice daily 10/13/2024 10/21/2024 Active Varenicline Tartrate 1 MG 1 tablet Orally twice daily for 30 days 10/13/2024 12/12/2024 Active Levothyroxine Sodium 100 MCG Oral 01/14/2024 Active WEGOVY 0.5 MG/0.5 ML SUBCUTANEOUS PEN INJECTOR *Reorder from [employer] for eRx and Interaction Alerts* 01/14/2024 Active traZODone HCl 50 MG 1 tablet at bedtime Oral Once a day for 90 days Active Methylphenidate HCl ER 36 MG 1 tablet every morning Oral once a day for 30 days 10/13/2024 Active Social History Tobacco Use: Social History Observation Description Date Details (start date - stop date) Current Smoker NA - NA Sex Assigned At : Social History Observation Description Sex Assigned At Female Tobacco Control (Standard) Question Answer Notes Tobacco use: Current smoker Section Notes: ETOH in evenings/weekends. I have limits Problems Problem Type SNOMED Code ICD Code Onset Dates Problem Status W/U Status Risk Notes Problem Cigarette smoker (18072588) Cigarette smoker (F17.210) Active confirmed Current daily smoker, on average about 5 cigarettes daily. Has been smoking since age 14. No history of quitting or attempt at quitting. Vital Signs Blood pressure systolic 123 mm Hg 10/13/19 25 Blood pressure diastolic 91 mm Hg 025 Heart Rate 83 /min 10/13/2024 Height 62.00 in 10/13/2024 Weight 147.8 lbs 10/13/2024 BMI 27.03 kg/m2 10/13/2024 Height-cm 157.48 cm 10/13/2024 Weight-kg 67.04 kg 10/13/2024 Encounters Encounter Location Date Provider Diagnosis [facility] [employer] [facility] [address] [address] 10/13/2024 Rowena Andres Major depressive disorder, recurrent, severe with psychotic symptoms F33.3 ; Generalized anxiety disorder F41.1 ; Attention-deficit hyperactivity disorder, combined type F90.2 ; Post-traumatic stress disorder, chronic F43.12 and Cigarette smoker F17.210 Assessments Encounter Date Diagnosis (ICD Code) Assessment Notes Treatment Notes Treatment Clinical Notes Section Notes 10/13/2024 Major depressive disorder, recurrent, severe with psychotic symptoms (ICD-10 - F33.3) Stable, no concerns today. PHQ9= 6 SSRI/SNRI side effects discussed including but not limited to, gastric upset, nausea, vomiting, diarrhea and/or constipation, weight changes, sexual side effects including loss of libido, increased suicidal thoughts/behav iors in children and young adults, and serotonin syndrome. 10/13/2024 Generalized anxiety disorder (ICD-10 - F41.1) Stable, no concerns today, well controlled 10/13/2024 Attention-deficit hyperactivity disorder, combined type (ICD-10 - F90.2) Struggling with maintaining focus and concentration which is impacting productivity at work and home settings. 10/13/2024 Post-traumatic stress disorder, chronic (ICD-10 - F43.12) Stable, needs to schedule counseling follow up with nannette 10/13/2024 Cigarette smoker (ICD-10 - F17.210) Current daily smoker, on average about 5 cigarettes daily. Has been smoking since age 14. No history of quitting or attempt at quitting. 10/13/2024 Other Start Chantix for smoking cessation- 0.5mg daily for 4 days then 0.5mg BID for 4 days then 1mg BID until next apt. Patient educated on all medications including potential benefits, side effects, risks. Educated on proper dosing schedule and importance of compliance. Encouraged to schedule counseling with Nannette -Assessment and treatment plan reviewed with patient. -Compliance with treatment plan importance discussed. -Discussed the risks/benefits of this medication -Discussed medication side effects. -Contact office if symptoms worsen. -Discussed that it can take up to 6-8 weeks to see full therapeutic effects of psychotropic medications. -Crisis prevention hotline 988. Plan Of Treatment Medication Medication Name Sig Start Date Stop Date Notes DULoxetine HCl 60 MG 1 cap Oral twice a day for 90 days Varenicline Tartrate 0.5 MG 1 Orally Onc e a day for 8 days 10/13/2024 10/21/2024 Varenicline Tartrate 1 MG 1 tablet Orall y twice daily for 30 days 10/13/2024 12/12/2024 traZODone HCl 50 MG 1 tablet at bedtime Oral Once a day for 90 days Methylphenidate HCl ER 36 MG 1 tablet ev doe morning Oral once a day for 30 days 10/13/2024 Treatment Notes Assessment Notes Major depressive disorder, r ecurrent, severe with psychotic symptoms SSRI/SNRI side effects discussed includi ng but not limited to, gastric upset, nausea, vomiting, diarrhea and/or constipation, weight changes, sexual side effects including loss of libido, increased suicidal thoughts/behaviors in children and young adults, and serotonin syndrome. Other Start Chantix for smoking cessation- 0.5mg daily for 4 days then 0.5mg BID for 4 days then 1mg BID until next apt. Patient educated on all medications including potential benefits, side effects, risks. Educated on proper dosing schedule and importance of compliance. Encouraged to schedule counseling with Nannette Arauz Appt Details Follow Up: 6 Weeks, Reason: med follow up Provider Name:Rowena Andres, 11/23/2024 01:15:00 PM, [facility] [facility], [address], [address], Provider Name:Nannette Haro, 12/14/2024 01:00:00 PM, [facility] [address] [facility], [address], [address], Provider Name:Nannette Haro, 01/04/2025 01:00:00 PM, [facility] [facility], [address], [address], Provider Name:Nannette Haro, 02/01/2025 01:00:00 PM, [address], [address], [address], Progress Notes * KYLIE FUNG MDOB:1979 (44 yo F)Acc No.[id number]:10/13/2024 Patient: Kamran KYLIE DENISE Provider: SOREN VALDES :1980 A ge:44 Y S ex:Female Date:10/13/2024 Address:[address] [place], [place] [id number] Pcp:Mable Rouse NP Subjective: * Chief Complaints: * 3 month f/uStates she is currently smoking cigarettes and she wants to quit smokingElevated or Hypertensive blood pressure readingDepression screening positiveexam * HPI: H istory of Presenting Problem: Anxiety R ates anxiety 2/10 with 10 being most severe..? Depression R ates depression 2/10 with 10 being most severe. . Mood lability w ith irritable mood. Psychosis d enies current psychosis . Suicidal ideation d enies. ADHD f orgetful in daily activities, easily distracted by extraneous stimuli, often on the go or often acts as if driven by a motor, forgetful in daily activities. Psychotherapy J haylie. Here for follow up. No medication changes made last apt. States I am doing okay . Denies feeling depressed. Denies feeling hopeless or helpless, no suicidal ideation. Has not been counseling recently due to work scheduling concerns. Denies paranoia recently. Struggling with ADHD symptoms and maintaining focus and concentration throughout work day. She is interested in smoking cessation- I go all day without smoking, but I do after work , smoking about 5 cigarettes daily currently. Has been smoking since age 14, interested in quitting. Appetite is good. Sleep is good, getting about 7-8 hours nightly. D epression Screening: ABBY-7 (2018 Edition) F eeling nervous, anxious, or on edge N ot at all N ot being able to stop or control worrying?Not at all W orrying too much about different things S ever T rouble relaxing N ot at all B eing so restless that it is hard to sit still N ot at all B ecoming easily annoyed or irritable N ot at all F eeling afraid as if something awful might happen S ever T otal ABBY-7 Score 2 I f you checked any problems, how difficult have they made it for you to do your work, take care of things at home, or get along with other people? S omewhat difficult I nterpretation of Total ( 0 to 4) No Anxiety D epression screening: PHQ-9 L ittle interest or pleasure in doing things?Not at all F eeling down, depressed, or hopeless N ot at all T rouble falling or staying asleep, or sleeping too much S ever F eeling tired or having little energy S ever P oor appetite or overeating N ot at all F eeling bad about yourself or that you are a failure, or have let yourself or your family down S everal days T rouble concentrating on things, such as reading the newspaper or watching television M ore than half the days M oving or speaking so slowly that other people could have noticed; or the opposite, being so fidgety or restless that you have been moving around a lot more than usual S everal days T houghts that you would be better off or of hurting yourself in some way N ot at all T otal Score 6 I nterpretation M ild Depression Intervention D epression Screening Findings P ositve F ollow-Up for Depression M ental health treatment assessment, Patient follow-up to return when and if necessary S uicide Risk Assessment Performed _ A dditional Evaluation for Depression P sychiatric interview and evaluation N donavon of the standardized tool used for adult depression screening: P atient Health Questionnaire (PHQ-9) * ROS: P sychiatric: Patient denies a uditory / visual hallucinations, delusions, anxiety, suicidal thoughts, psychosis, alfredo. C mayelin S ee HPI for details. ? * Medical History: * Surgical History: T onsilectomy/adenoids 09/01/1987Breast surgery (95142) 09/01/1999Cosmetic surgery 09/01/2014ny surgical history 09/01/2020Hysterectomy ([id number]) 07/16/2021 * Hospitalization/Major Diagno stic Procedure: * Family History: F ather: alive, diagnosed [...] T obacco Control (Standard) T obacco use: C urrent smoker M igrated Social History: M igrated Social History: Alcohol Intake: None 10/24/2022,Tobacco Years: Current every day smoker 02/19/2022,Smoking Status: 20 09/10/2023. M iscellaneous: A dvance Care Planning A re you your own decision-maker Y es E KYM in evenings/weekends. I have limits . * Medications: T akingLevothyroxine Sodium 100 MCG Tablet Oral WEGOVY 0.5 MG/0.5 ML SUBCUTANEOUS PEN INJECTOR , Notes to Pharmacist: *Reorder from [facility] for eRx and Interaction Alerts*DULoxetine HCl 60 MG Capsule Delayed Release Particles 1 cap Oral twice a day traZODone HCl 50 MG Tablet 1 tablet at bedtime Oral Once a day Methylphenidate HCl ER 27 MG Tablet Extended Release 1 tablet every morning Oral once a day , stop date 11/05/2024Medication List reviewed and reconciled with the patientTaking Levothyroxine Sodium 100 MCG Tablet Oral Taking WEGOVY 0.5 MG/0.5 ML SUBCUTANEOUS PEN INJECTOR , Notes to Pharmacist: *Reorder from [facility] for eRx and Interaction Alerts*Taking DULoxetine HCl 60 MG Capsule Delayed Release Particles 1 cap Oral twice a day Taking traZODone HCl 50 MG Tablet 1 tablet at bedtime Oral Once a day Taking Methylphenidate HCl ER 27 MG Tablet Extended Release 1 tablet every morning Oral once a day , stop date 11/05/2024Medication List reviewed and reconciled with the patient * Allergies: N .K.D.A.no[Allergies Verified] Objective: * Vitals: B P:123/91mm Hg, HR:83/min, Wt:147.8lbs, Wt-k.04 kg, Ht: 62.00 in, Ht-cm: 157.48 cm, BMI:27.03Index, Body Surface Area: 1.71. * Examination: P sychiatry: Appearance: w ell-groomed. Abnormal body movements: n one. Affect / mood: a ppropriate. Attention: g ood. Attitude: c ooperative. Homicidal ideation: n one. Suicidal ideation: n one. Degree of awareness of surroundings: w ithin normal limits.? Delusions: n o. Hallucinations: n o. Insight: g ood. Judgement: g ood. Orientation: a wake, alert and oriented x 3. Perceptual disorders: n o perceptual disorder noted. Psychomotor activity: w ithin normal range. Speech / language: n ormal rate, volume, and articulation (RVR), clear and coherent, appropriate pitch/modulation. Thought content: a ppropriate. Thought process: i ntact. Assessment: * Assessment: 1. M ajor depressive disorder, recurrent, severe with psychotic symptoms - F33.3 (Primary) N otes :Stable, no concerns today. PHQ9= 6 2. G eneralized anxiety disorder - F41.1 N otes :Stable, no concerns today, well controlled 3 . A ttention-deficit hyperactivity disorder, combined type - F90.2 ? N otes :Struggling with maintaining focus and concentration which is impacting productivity at work and home settings. 4. P ost-traumatic stress disorder, chronic - F43.12 N otes :Stable, needs to schedule counseling follow up with nannette 5. C igarette smoker - F17.210 N otes :Current daily smoker, on average about 5 cigarettes daily. Has been smoking since age 14. No history of quitting or attempt at quitting. Plan: * Treatment: 2. A ttention-deficit hyperactivity disorder, combined type Increase Methylphenidate HCl ER Tablet Extended Release, 36 MG, 1 tablet every morning, Oral, once a day, 30 days, 30 Tablet, Refills 0. 3. C igarette smoker Start Varenicline Tartrate Tablet, 0.5 MG, 1, Orally, Once a day for 4 days, then once tablet twice daily, 8 days, 12; S tart Varenicline Tartrate Tablet, 1 MG, 1 tablet, Orally, twice daily, 30 days, 60, Refills 1. 4. O thers Notes: Start Chantix for smoking cessation- 0.5mg daily for 4 days then 0.5mg BID for 4 days then 1mg BID until next apt. Patient educated on all medications including potential benefits, side effects, risks. Educated on proper dosing schedule and importance of compliance. Encouraged to schedule counseling with Nannette Clinical Notes: -Assessment and treatment plan reviewed with patient. -Compliance with treatment plan importance discussed. -Discussed the risks/benefits of this medication -Discussed medication side effects. -Contact office if symptoms worsen. -Discussed that it can take up to 6-8 weeks to see full therapeutic effects of psychotropic medications. -Crisis prevention hotline 988. * Labs: * L ab: UDT (Collection Date & Time - 10/13/2024) Value Reference Range T HC NEG 0 - 50 ng/ml * C ocaine NEG 0 - 300 ng/ml * A mphetamine NEG 0 - 1000 ng/ml * B uprenorphine (BUP) NEG 0 - 10 ng/ml * S ecobarbital (Bar) NEG 0 - 300 ng/ml * O xazepam (BZO) NEG 0 - 300 ng/ml * 2 -ethylidene-1,9-niyeleti-5,3-diphenylpyrrolidine (EDDP) NEG 0 - 300 ng/ml * M ethamphetamine (MET) NEG 0 - 1000 ng/ml * M ethylenedioxymethamphetamine (MDMA) NEG 0 - 500 ng/ml * M orphine (MOP 300/[id number]) NEG 0 - 300 ng/ml * M ethadone (MTD) NEG 0 - 300 ng/ml * P hencyclidine (PCP) NEG 0 - 25 ng/ml * P ropoxyphene (PPX) NEG 0 - 300 ng/ml * N ortriptyline (TCA) NEG 0 - 1000 ng/ml * O xycodone NEG 0 - 300 ng/ml * Procedure Codes: 8 0306 DRUG TST PRSMV READ INSTRMNT ASSTD DIR OPT [id number] Pt scrn tbco and id as [id number] PREHTN/HTN BP DOC INDCD F/U [id number] BEHAV ASSMT W/SCORE & DOCD/STAND [id number] CLIN DEPRESSION SCREEN [id number] MOST RECENT DIASTOLIC BP >= 90MM [id number] VISIT COMPLEXITY INHERENT TO ONGOING CARE RELATED TO A PATIENT'S SINGLE, SERIOUS CONDITION OR A COMPLEX CONDITION * Preventive Medicine: Counseling: B P Management: PRE-HYPERTENSIVE FOLLOW-UP PLAN: F ollow-up 2-3 months LIFESTYLE RECOMMENDATION: Ale malinestyle education REFERRAL TO ALTERNATIVE / PRIMARY CARE PROVIDER: Darshan allison to general physician C ommunication to patient: Counseled the Patient on tobacco use; cessation provided 0 10/13/2024 Date Counseled the Patient on smoking cessation; education provided D ate Counseled the Patient on smoking effects; education provided D ate S moking Cessation counseling done Discuss the importance of quitting smoking. * Follow Up: 6 Weeks (Reason: med follow up) * Billing Information: * Visit Code: 62759 OFFICE OUTPATIENT VISIT 25 MINUTES DETAILED HISTORY AND EXAM/MODERATE MEDICAL DECISION MAKING. * Procedure Codes: 30454 DRUG TST PRSMV READ INSTRMNT ASSTD DIR OPT OBS. G9902 Pt scrn tbco and id as user. G8950 PREHTN/HTN BP DOC INDCD F/U DOC. 53462 BEHAV ASSMT W/SCORE & DOCD/STAND INSTRUMENT. G8431 CLIN DEPRESSION SCREEN DOC. G8755 MOST RECENT DIASTOLIC BP >= 90MM HG. G2211 VISIT COMPLEXITY INHERENT TO ONGOING CARE RELATED TO A PATIENT'S SINGLE, SERIOUS CONDITION OR A COMPLEX CONDITION. * IC TECHNICIAN Sign off status: Completed true * Provider: SOREN VALDES Date: 0 10/13/2024 Generated for Barber finley/Pat/Drakeransmitting on: 0 11/10/2024 06:05 PM CDT History and Physical Notes * HPI (History of Present Illness) Category Sub-Category Detail Notes Category Not es History of Presenting Problem Anxiety Rates anxiety 2/10 with 10 b eing most severe. Here for follow up. No medication changes made last apt. States I am doing okay . Denies feeling depressed. Denies feeling hopeless or helpless, no suicidal ideation. Has not been counseling recently due to work scheduling concerns. Denies paranoia recently. Struggling with ADHD symptoms and maintaining focus and concentration throughout work day. She is interested in smoking cessation- I go all day without smoking, but I do after work , smoking about 5 cigarettes daily currently. Has been smoking since age 14, interested in quitting. Appetite is good. Sleep is good, getting about 7-8 hours nightly. Depression Rates depression 2/1 0 with 10 being most severe. Suicidal ideation denies Psychosis denies current psych osis Mood lability with irritable mood ADHD forgetful in daily a ctivities, easily distracted by extraneous stimuli, often on the go or often acts as if driven by a motor, forgetful in daily activities Psychotherapy Nannette Depression screening PHQ-9 Little inte rest or pleasure in doing things: Not at all Feeling down, depressed, or hopeless: No t at all Trouble falling or staying asleep, or sl eeping too much: Several days Feeling tired or having little energy: S everal days Poor appetite or overeating: Not at all Feeling bad about yourself o r that you are a failure, or have let yourself or your family down: Several days Trouble concentrating on thi ngs, such as reading the newspaper or watching television: More than half the days Moving or speaking so slowly that other people could have noticed; or the opposite, being so fidgety or restless that you have been moving around a lot more than usual: Several days Thoughts that you would be b richard off or of hurting yourself in some way: Not at all Total Score: 6 Interpretation: Mild Depression Intervention Depression Screening Findings: P ositve Follow-Up for Depression: [facility] treatment assessment, Patient follow-up to return when and if necessary Suicide Risk Assessment Performed: Additional Evaluation for Depression: Ps ychiatric interview and evaluation Name of the standardized too l used for adult depression screening:: Patient Health Questionnaire (PHQ-9) Depression Screening ABBY-7 (2018 Edition) Feelin g nervous, anxious, or on edge: Not at all Not being able to stop or control worryi ng: Not at all Worrying too much about different things : Several days Trouble relaxing: Not at all Being so restless that it is hard to sit still: Not at all Becoming easily annoyed or irritable: No t at all Feeling afraid as if something awful jamel ht happen: Several days Total ABBY-7 Score: 2 If you checked any problems, how difficult have they made it for you to do your work, take care of things at home, or get along with other people?: Somewhat difficult Interpretation of Total: (0 to 4) No Anx iety Examination Category Sub-Category Detail Notes Category Not es Psychiatry Appearance: well-groomed Attitude: cooperative Psychomotor activity: within normal rang e Abnormal body movements: none Attention: good Degree of awareness of surroundings: wit hin normal limits Orientation: awake, alert and monica ented x 3 Affect / mood: appropriate Speech / language: normal rate, volume, and articulation (RVR), clear and coherent, appropriate pitch/modulation Insight: good Judgement: good Thought process: intact Thought content: appropriate Perceptual disorders: no perceptual diso rder noted Suicidal ideation: none Homicidal ideation: none Delusions: no Hallucinations: no
--- OUTSIDE RECORDS SUMMARY | 2024-11-10 18:05 | XMS_ITS | Clinical Summary ---
Author Organization [facility] al Address [address] [place] [address] Care Team Providers Care Piano Stringer Name Role Phone Unknown, Notinfile Primary Care Provider Unavail able Allergies No known active allergies Medications lidocaine (XYLOCAINE) 5 % ointment Apply topically 2 (two) times a day as needed for pain 30 g 0 Active ibuprofen (ADVIL,MOTRIN) 600 mg tablet Take 1 tablet (600 mg total) by mouth every 6 (six) hours as needed for pain 20 tablet 0 Active Medical History Medical History Date Comments Thyroid disease Social History Tobacco Use Types Packs/Day Years [...] on file 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 Gender Identity Not on file Sexual Orientation Not on file Obstetrics History Last Filed Vital Signs Vital Sign Reading [...] 01/07/2022 7:39 PM CDT Plan of Treatment Health Maintenance Due Date Last Done Comments Breast Cancer Screening-Mammogram 1978 Colon Cancer Screening-Colonoscopy 1978 Depression Screening 1978 Hepatitis C Screening 1978 DTaP/Tdap/Td Vaccine (1 - Tdap) 1989 Hepatitis B Screening 1996 Regular Well Visit/Exam 18-64 1996 Pneumococcal vaccine <65 (1 of 2 - PCV) 1997 Influenza Vaccine (#1) 2024 HPV Vaccines Aged Out No longer eligi ble based on patient's age to complete this topic Insurance ANTH PREFERRED ANTH PREFERRED ANTHE[employer]ENS[employer] GENERIC Care Teams Piano Stringer Relationship Specialty Start Date End Date Unknown, Notinfile PCP - General 01/07/22
--- OUTSIDE RECORDS SUMMARY | 2024-11-10 18:05 | XMS_ITS | Encounter Summary ---
Author Organization [facility] Address [address] [place] [address] Care Team Providers Care Compatibility Test Engineer Name Role Phone Unavailable Primary Care Provider Unavailabl e Encounter Details Date Type Department Care Team (Late st Contact Info) Description 11/09/2024 External Device Data [facility] ABSTRACTION Provider, Abstract NO ADDRESS ON FILE Social History Tobacco Use Types Packs/Day Years Used Date Smoking Tobacco: Never Assessed Comments Unknown Sex and Gender Information Value Date Recorded Sex Assigned at Not on file Legal Sex Female 9:44 PM CDT Gender Identity Not on file Sexual Orientation Not on file documented as of this encounter Plan of Treatment Not on file documented as of this encounter Visit Diagnoses Not on filedocumented in this encounter
--- OUTSIDE RECORDS SUMMARY | 2024-11-10 18:05 | XMS_ITS ---
Author Organization [facility] Address [address] [place] [phone] Care Team Providers Care Venue Manager Name Role Phone Padma SON, Mable Primary Care Provider Rowena Etienne [phone] REASON FOR VISIT Makenna MCCORMACK Social History Sex Assigned At : Social History Observation Description Sex Assigned At Female Encounters Encounter Location Date Provider Diagnosis [facility] [address] [address] 11/09/2024 Rowena Andres Plan Of Treatment Next Appt Details Provider Name:Rowena Andres, 11/23/2024 01:15:00 PM, [address] [place] [address], [address], [phone], Provider Name:Nannette Haro, 12/14/2024 01:00:00 PM, [address] [place] [address], [phone], Provider Name:Nannette Haro, 01/04/2025 01:00:00 PM, [address] [place] [address], [phone], Provider Name:Nannette Haro, 02/01/2025 01:00:00 PM, [address] [place] [address], [address], [phone], Progress Notes * KYLIE FUNG MDOB:1979 (44 yo F)Acc No.[id number]:11/09/2024 Patient: Kamran DENISE KYLIE Hopkins :1980 A ge:44 Y S ex:Female Address:[address] [place] [id number] * true * Date: Generated for Barber finley/Pat/Piotritting on: 0 11/10/2024 06:04 PM CDT
--- OUTSIDE RECORDS SUMMARY | 2024-11-10 18:06 | XMS_ITS | Clinical Summary ---
Author Organization [facility] Address [facility] [place] [address] Care Team Providers Care Clinical Radiologist Name Role Phone Mable Rouse Primary Care Provider Allergies No known active allergies Medications DULoxetine (CYMBALTA) 60 MG capsule 1 capsule (60 mg total) every evening. 05/31/20 22 Active methylphenidate CR (CONCERTA) 27 MG tablet Take 1 tablet (27 mg total) by mouth every morning. Active valACYclovir (VALTREX) 500 MG tabletIndications: HSV-1 infection Take 1 tablet (500 mg total) by mouth daily. 90 tablet 3 05/19/20 24 Active levothyroxine (SYNTHROID) 100 MCG tabletIndications: Acquired hypothyroidism Take 1 tablet (100 mcg total) by mouth every morning. 90 tablet 3 05/19/20 24 Active traZODone (DESYREL) 50 MG tablet Take 1 tablet (50 mg total) by mouth nightly as needed for Sleep. 07/14/20 24 Active tirzepatide (ZEPBOUND) 5 MG/0.5ML injectionIndicatio ns:Weight Loss Inject 5 mg into the skin once a week. Indications: Weight Loss 6 mL 1 09/22/19 25 Active Additional Information Patient not taking.Reported on 09/29/2024 Na sulfate-K sulfate-Mg sulfate (SUPREP BOWEL PREP KIT) 17.5-3.13-1.6 GM/177ML SolutionIndication s:Screening for colon cancer Take 177 mLs by mouth every 12 (twelve) hours. 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 Acquired hypothyroidism 04/01/2019 Resolved Problems Problem Noted Date Diagnosed Date Resolved Date Screening for colon cancer 09/29/2024 0 10/04/2024 Right otitis media 03/19/2024 Herpes zoster without complication 04/01/2019 09/28/2020 Encounters Date Type Department Care Team Description 09/29/2024 10:40 AM HIGH SCHOOL PROFESSIONAL Office Visit [address], [address] [place] [address] Mable Rouse APNP Schaefer, Jennifer, NP New Patient; Consult For Colonoscopy (Referral screening ) 09/29/2024 Orders Only [facility] - [address], [address] [place] [address] Paddy Bahena MD 09/29/2024 Travel 09/23/2024 Telephone [facility] [address] [address] Mable Rouse APNP Prior Authorization (Zepbound 5mg) 09/22/2024 11:00 AM HIGH SCHOOL PROFESSIONAL Office Visit [facility] [address] [address] Mable Rouse APNP Weight Check 09/22/2024 Travel from Last 3 Months Immunizations Name Administration Dates Next Due Tdap (Adacel) 04/24/2022 Family History Medical History Relation Comments Mental Health Daughter Depression Father Cancer Maternal Grandmother lung Depression Mother Kidney Disease Mother Anxiety Sister Depression Sister Hypertension Sister Diabetes Son Relation Status Comments Daughter Father Maternal Grandmother Mother Sister Son Social History Tobacco Use Types Packs/Day Years Used Date Smoking Tobacco: Light Smoker Cigarettes 0.3 15 Passive Smoke Exposure: Current Smokeless Tobacco: Never Tobacco Cessation:Ready to Q uit: No; Counseling Given: Yes Comments:social smoker, with drinking Alcohol Use Standard Drinks/Week Comments Yes 0 (1 standard drink = 0.6 oz pur e alcohol) On occasion AUDIT-C Answer Date Recorded Q1: How often do you have a drink containing alc ohol? Monthly or less 09/28/2020 Average Number of Drinks Not on file 021 Frequency of Binge Drinking Not on file 09/02 PHQ-2 Answer Date Recorded Patient Health Questionnaire-2 Score 0 09/29/2024 Comments No Sex and Gender Information Value Date Recorded Sex Assigned at Female 09/22/2024 11:34 AM HIGH SCHOOL PROFESSIONAL Legal Sex Female 7:01 PM CDT Gender Identity Female 10/08/2021 4:41 AM HIGH SCHOOL PROFESSIONAL Sexual Orientation Straight 10/08/2021 4: 41 AM HIGH SCHOOL PROFESSIONAL Last Filed Vital Signs Vital Sign Reading Time Taken Comments Blood Pressure 119/72 09/29/2024 10:51 AM HIGH SCHOOL PROFESSIONAL Pulse 102 09/29/2024 10:51 AM HIGH SCHOOL PROFESSIONAL Temperature 36.6 C (97.8 F) 09/29/2024 10:51 AM HIGH SCHOOL PROFESSIONAL Respiratory Rate 18 09/29/2024 10:51 AM HIGH SCHOOL PROFESSIONAL Oxygen Saturation 100% 09/29/2024 10:51 AM HIGH SCHOOL PROFESSIONAL Inhaled Oxygen Concentration - - Weight 67.6 kg (149 lb) 09/29/2024 10:51 AM HIGH SCHOOL PROFESSIONAL Height 152.4 cm (5') 09/29/2024 10:51 AM HIGH SCHOOL PROFESSIONAL Body Mass Index 29.1 09/29/2024 10:51 AM HIGH SCHOOL PROFESSIONAL Plan of Treatment Upcoming Encounters Date Type Department Care Team (Latest Contact Info) Description 03/28/2025 1:00 PM CDT Hospital Encounter [facility] [place] [address] Paddy Bahena MD [address] [address] 03/28/2025 1:00 PM CDT - 03/28/2025 1:30 PM CDT Surgery [facility]/[place] [address] Paddy Bahena MD 3 [facility] [address] [place] [address] COLONOSCOPY SCREENING Scheduled Procedures Name Priority Associated Diagnoses Date/Ti me COLONOSCOPY SCREENING Screening for colon cancer 03/28/2025 1:00 PM CDT Health Maintenance Due Date Last Done Comments Colorectal Cancer Screening Colonoscopy (10 Years) 1978 Pneumococcal Vaccine: Pediatrics (0 to 5 Years) and At-Risk Patients (6 to 64 Years) (1 of 2 - PCV) 1984 Hepatitis B Vaccines (1 of 3 - 19+ 3-dose series) 1997 COVID-19 Vaccine (2023-2 5 season) 2024 Influenza Adult (#1) 2024 Mammogram Screening 03/17/2025 03/17/2023, 03/06/2022, 11/13/2020 Annual Physical 05/19/2025 05/19/2024, 08/22/2021 DTaP, Tdap and Td Vaccines ( 2 - Td or Tdap) 04/24/2032 04/24/2022 Hepatitis C Completed 09/28/2020 PHQ-2 (Physician [place]) Completed 09/29/2024 Meningococcal B Vaccine Aged Out No l onger eligible based on patient's age to complete this topic Meningococcal Vaccine Aged Out No elyssa shelton eligible based on patient's age to complete this topic RSV Immunizations Under 20 Months Aged Out No longer eligible b ased on patient's age to complete this topic Procedures Procedure Name Priority Date/Time Associated Diagnosis Comments MAMMOGRAM GENERIC (SCAN ORDER) 03/17/2023 HEP C AB W RFX TO HCV RNA/PCR W RFX TO GENOTYPE,LIPA LD Routine 09/28/2020 2:51 PM HIGH SCHOOL PROFESSIONAL from Last 3 Months or Most Recently Relevant to Health Maintenance Results * MAMMOGRAM GENERIC (03/17/2023) Anatomical Region Laterality Modality Other 03/17/2023 [facility] Scanned SCANNING Final Resu lt * HEP C AB W RFX TO HCV RNA/PCR W RFX TO GENOTYPE,LIPA LD (09/28/2020 2:51 PM HIGH SCHOOL PROFESSIONAL) HEPATITIS C AB NON-REACTI VE NON-REACTI VE [facility] SIGNAL TO CUTOFF 0.01 <1.00 [facility] Comment: HCV antibody was non-reactive. There is no laboratory evidence of HCV infection. In most cases, no further action is required. However, if recent HCV exposure is suspected, a test for HCV RNA (test code 63112) is suggested. For additional information, please refer to http://education.[employer]/faq/BZK056 (This link is being provided for informational/ educational purposes only.) 09/28/2020 2:51 PM HIGH SCHOOL PROFESSIONAL 09/28/2020 2:55 PM HIGH SCHOOL PROFESSIONAL [facility] Final Resul t [facility] [address] [place] [address] from Last 3 Months or Most Recently Relevant to Health Maintenance Insurance [facility] Care Teams Clinical Radiologist Relationship Specialty Start Date End Date Mable Rouse APNP [address] [place] [id number] PCP - General NURSE PRACTITIONER 09/28/20
--- OUTSIDE RECORDS SUMMARY | 2024-11-10 18:06 | XMS_ITS | Patient Health Record ---
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 [facility], [place], [address], Insurance Providers Payer Name Payer Address Payer Phone Subscriber Number Group Number Insured Name Patient Relationship to Insured Coverage Start Date Coverage End Date [place] [employer] Ppo [address] [place] [address] [id number] FUNGANNAA Self - patient is the insured [place] l Medicaid [address] [address] [place] [address] [id number] KYLIE FUNG Self - patient is the insured 4 Medical (General) History Medical History History ICD Code Problems: Abnormal weight gain Attention deficit hyperactivity disorder , combined type Chronic post-traumatic stress disorder Generalized anxiety disorder 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
== END 2024-11-10 17:45 | disposition home or self-care (01) ==
PROVIDERS: Emergency Provider Nurse Practitioner Family; PCP Registered Nurse
DX: H69.93 Unspecified Eustachian tube disorder, bilateral (principal); F17.210 Nicotine dependence, cigarettes, uncomplicated
CPT/HCPCS: 99213; G0463

== ENCOUNTER 2024-11-23 09:06 | Outpatient (CLI) | payer OTHER, SELFPAY ==
--- NOTE | 2024-11-23 09:18 | ECG_ITS ---
Test Date: 2024-11-23 09:31:14 Measurements Intervals Clifford Rate: 88 P: 37 OK: 108 QRS: 35 QRSD: 83 T: 45 QT: 347 QTc: 422 Interpretive Statements SINUS RHYTHM WITH SHORT OK INTERVAL NONSPECIFIC T-WAVE ABNORMALITY No previous ECG available for comparison Electronically Signed On 11-23-2024 16:42:14 CDT by Angela Andino M.D.
[2024-11-23 09:37] LABS: Hematocrit 39.7 % (37.0-47.0); Hemoglobin 13.1 g/dL (12.0-15.0)
--- OUTSIDE RECORDS SUMMARY | 2024-11-23 10:01 | XMS_ITS | Referral Summary ---
Author Organization [facility] al Address [address] [place] [address] Care Team Providers Care Head Operator Sulfide Name Role Phone Unknown, Notinfile Primary Care [...] on file Legal Sex Female 3:50 AM LAN ADMINISTRATOR Gender Identity Not on file Sexual Orientation [...] ANTHEM PREFERRED WORKERS COMPENSATION GENERIC Care Teams Head Operator Sulfide Relationship Specialty Start Date End Date Unknown, Notinfile PCP - General 01/07/22
--- OUTSIDE RECORDS SUMMARY | 2024-11-23 10:01 | XMS_ITS | Clinical Summary ---
Author Organization [facility] Address [address] Ibarra: Epic Prelude ADT ZONIA RED [address] Care Team Providers Care Picker Packer Name Role Phone Unavailable Primary Care Provider [...] days. 2 mL 2 10/10/2024 3:15 PM CERAMICS ARTIST 4 Active sodium, potassium and magnesium sulfates (SUPREP) 17.5-3.13-1.6 gram Recon Soln Take 177 mLs by mouth every 12 (twelve) hours per GI instructions 354 mL 10/02/2024 12:57 PM CERAMICS ARTIST 5 Active Encounters Date Type Department Care Team Description 11/10/2024 External Device Data [facility] ABSTRACTION Provider, Abstract 11/09/2024 External Device Data [facility] ABSTRACTION Provider, [...] of 3 - 19+ 3-dose series) 1997 PAP SMEAR 1999 CERVICAL CANCER SCREENING 2008 HPV/Cotest 2008 PAP SMEAR 2008 BREAST CANCER SCREENING 2018 COLORECTAL SCREENING 2023 Colorectal Cancer Screening 2023 FIT-DNA Q 3 years 2023 FIT/FOBT Q 1 year 2023 Flex Sig/CT Colonography Q 5 years 2023 INFLUENZA VACCINE (#1) 2024 HPV VACCINES Aged Out No longer eligi ble based on patient's age to complete this topic Insurance RX [facility] [employer]
--- OUTSIDE RECORDS SUMMARY | 2024-11-23 10:01 | XMS_ITS ---
Author Organization [facility] [employer] [facility] Address [address] [place] [address] [address] Care Team Providers Care Conventional Underwriter Name Role Phone Padma SON, Mable Primary Care Provider Rowena Etienne Unavailable [phone] REASON FOR VISIT New Refill Request Medications Medication SIG (Take, Route, Frequency, Duration) Notes Start Date End Date Status Methylphenidate HCl ER 36 MG 1 tablet ev doe morning Oral once a day for 30 days 11/16/2024 12/16/2024 Active Social History Sex Assigned At : Social History Observation Description Sex Assigned At Female Encounters Encounter Location Date Provider Diagnosis [facility] [employer] [address] [address] 11/16/2024 Rowena Andres Attention-deficit hyperactivity disorder, combined type F90.2 Assessments Encounter Date Diagnosis (ICD Code) Assessment Notes Treatment Notes Treatment Clinical Notes Section Notes 11/16/2024 Attention-deficit hyperactivity disorder, combined type (ICD-10 - F90.2) Plan Of Treatment Medication Medication Name Sig Start Date Stop Date Notes Methylphenidate HCl ER 36 MG 1 tablet ev doe morning Oral once a day for 30 days 11/16/2024 12/16/2024 Next Appt Details Provider Name:Rowena Andres, 11/23/2024 01:15:00 PM, [address] [facility] [address] [facility], [address], [address], Provider Name:Nannette Haro, 12/14/2024 01:00:00 PM, [address] [facility] [address], [facility] [address], [address], Provider Name:Nannette Haro, 01/04/2025 01:00:00 PM, [address] [facility] [address] [facility], [place] [address], [place], [address], Provider Name:Nannette Haro, 02/01/2025 01:00:00 PM, [address] [facility] [address] [facility], [place] [address], [place], [address], Progress Notes * KYLIE FUNG MDOB:1979 (44 yo F)Acc No.[id number]:11/16/2024 Patient: KYLIE SCOTT :1980 A ge:44 Y S ex:Female Address:[address], [address] * Refills Refill Methylphenidate HCl ER Tablet Extended Release, 36 MG, Oral, 30 Tablet, 1 tablet every morning, once a day, 30 days, Refills=0 * true * Date: Generated for Barber finley/Pat/Elsasmitting on: 0 11/23/2024 10:01 AM CDT
--- OUTSIDE RECORDS SUMMARY | 2024-11-23 10:01 | XMS_ITS | Clinical Summary ---
Author Organization [facility] Address [facility] [place] [address] Care Team Providers Care Wood Furniture Assembler Name Role Phone PadmaMable collins TANYA Primary Care Provider Allergies No known active [...] Date Type Department Care Team Description 11/10/2024 Scan [facility] HEALTH INFO SRVCS Scanned, Doc Med Group 09/29/2024 10:40 AM STENCILING MACHINE TENDER [facility] - [address], [address] [place] [phone] Mable Rouse APNP Schaefer, Jennifer, NP New Patient; Consult For Colonoscopy (Referral screening ) 09/29/2024 Orders Only [facility] - [address], [address] [place] [address] Paddy Bahena MD 09/29/2024 Travel 09/23/2024 Telephone [facility] [address] [address] Mable Rouse APNP Prior Authorization (Zepbound 5mg) 09/22/2024 11:00 AM STENCILING MACHINE TENDER Office Visit [facility] Internal [address] [address] Mable Rouse APNP Weight Check 09/22/2024 Travel [...] Sex Assigned at Female 09/22/2024 11:34 AM STENCILING MACHINE TENDER Legal Sex Female 7:01 PM CDT Gender Identity Female 10/08/2021 4:41 AM STENCILING MACHINE TENDER Sexual Orientation Straight 10/08/2021 4: 41 AM STENCILING MACHINE TENDER Last Filed Vital Signs Vital Sign Reading Time Taken Comments Blood Pressure 119/72 09/29/2024 10:51 AM STENCILING MACHINE TENDER Pulse 102 09/29/2024 10:51 AM STENCILING MACHINE TENDER Temperature 36.6 C (97.8 F) 09/29/2024 10:51 AM STENCILING MACHINE TENDER Respiratory Rate 18 09/29/2024 10:51 AM STENCILING MACHINE TENDER Oxygen Saturation 100% 09/29/2024 10:51 AM STENCILING MACHINE TENDER Inhaled Oxygen Concentration - - Weight 67.6 kg (149 lb) 09/29/2024 10:51 AM STENCILING MACHINE TENDER Height 152.4 cm (5') 09/29/2024 10:51 AM STENCILING MACHINE TENDER Body Mass Index 29.1 09/29/2024 10:51 AM STENCILING MACHINE TENDER Plan of Treatment Upcoming Encounters Date Type Department Care Team (Latest Contact Info) Description 03/28/2025 1:00 PM CDT Hospital Encounter [facility] [place] [address] Paddy Bahena MD 3 [facility] [address] [place] [id number] 03/28/2025 1:00 PM CDT - 03/28/2025 1:30 PM CDT Surgery [facility] Endo/GI [place], [place] [address] Paddy Bahena MD [address] [address] COLONOSCOPY SCREENING Scheduled Procedures Name Priority Associated [...] - 19+ 3-dose series) 1997 COVID-19 Vaccine ( - 2023-2 5 season) 2024 Influenza Adult (#1) 2024 Mammogram Screening 03/17/2025 03/17/2023, 03/06/2022, 11/13/2020 Annual Physical 05/19/2025 05/19/2024, 08/22/2021 DTaP, Tdap and Td Vaccines ( 2 - Td or Tdap) 04/24/2032 04/24/2022 Hepatitis C Completed 09/28/2020 PHQ-2 (Physician Buckhorn) Completed 09/29/2024 Meningococcal B Vaccine Aged Out [...] TO GENOTYPE,LIPA LD Routine 09/28/2020 2:51 PM STENCILING MACHINE TENDER from Last 3 Months or Most Recently Relevant to Health Maintenance Results * MAMMOGRAM GENERIC (03/17/2023) Anatomical Region Laterality Modality Other 03/17/2023 us Doc Med Group Scanned SCANNING Final Resu lt * HEP C AB W RFX TO HCV RNA/PCR W RFX TO GENOTYPE,LIPA LD (09/28/2020 2:51 PM STENCILING MACHINE TENDER) HEPATITIS C AB NON-REACTI VE NON-REACTI VE [facility] SIGNAL TO CUTOFF 0.01 <1.00 [facility] Comment: HCV antibody was non-reactive. There is no laboratory evidence of HCV infection. In most cases, no further action is required. However, if recent HCV exposure is suspected, a test for HCV RNA (test code 26374) is suggested. For additional information, please refer to http://education.Hepregen/faq/WJI506 (This link is being provided for informational/ educational purposes only.) 09/28/2020 2:51 PM STENCILING MACHINE TENDER 09/28/2020 2:55 PM STENCILING MACHINE TENDER Mable [facility] Final Resul t [facility] [address] [place] [address] from Last 3 Months or Most Recently Relevant to Health Maintenance Insurance [facility] Care Teams Wood Furniture Assembler Relationship Specialty Start Date End Date Mable Rouse APNP [address] [place] [id number] PCP - General NURSE PRACTITIONER 09/28/20
--- OUTSIDE RECORDS SUMMARY | 2024-11-23 10:01 | XMS_ITS | Clinical Summary ---
Author Organization [facility] al Address [address] [place] [address] Care Team Providers Care Manager Room Name Role Phone Unknown, Notinfile Primary Care [...] on file Legal Sex Female 3:50 AM GLAZIER STAINED GLASS Gender Identity Not on file Sexual Orientation [...] PREFERRED WORKERS COMPENSATION GENERIC Care Teams Manager Room Relationship Specialty Start Date End Date Unknown, Notinfile PCP - General 01/07/22
--- OUTSIDE RECORDS SUMMARY | 2024-11-23 10:02 | XMS_ITS | Encounter Summary ---
Author Organization [facility] Address [address] [place] [address] Care Team Providers Care Process Artist Name Role Phone Mable Rouse Primary Care Provider [phone] Encounter Details Date Type Department Care Team (Latest Contact Info) Description 11/10/2024 Scan HEALTH INFO SRVCS Scanned, Doc Med Group Social History Tobacco Use Types Packs/Day Years Used Date Smoking Tobacco: Light Smoker Cigarettes 0.3 15 Passive Smoke Exposure: Current Smokeless Tobacco: Never Comments:social smoker, with drinking Alcohol Use Standard [...] Sex Assigned at Female 09/22/2024 11:34 AM AIR CONDITIONING SUPERVISOR Legal Sex Female 7:01 PM CDT Gender Identity Female 10/08/2021 4:41 AM AIR CONDITIONING SUPERVISOR Sexual Orientation Straight 10/08/2021 4: 41 AM AIR CONDITIONING SUPERVISOR documented as of this encounter Plan of Treatment Upcoming Encounters Date Type Department Care Team (Latest Contact Info) Description 03/28/2025 1:00 PM CDT Hospital Encounter [facility] [place] [address] Paddy Bahena MD [address] [address] 03/28/2025 1:00 PM CDT - 03/28/2025 1:30 PM CDT Surgery [facility] [place]o/[place] [address] Paddy Bahena MD [address] [address] COLONOSCOPY SCREENING Scheduled Procedures Name Priority Associated Diagnoses Date/Ti me COLONOSCOPY SCREENING Screening for colon cancer 03/28/2025 1:00 PM CDT documented as of this encounter Visit Diagnoses Not on filedocumented in this encounter Additional Health Concerns Assessment Noted Time PHQ-9 Depression Total Score: 8 06/27/20 22 11:14 AM CDT documented as of this encounter Care Teams Process Artist Relationship Specialty Start Date End Date Mable Rouse APNP [address] [place] [address] PCP - General NURSE PRACTITIONER 09/28/20 documented as of this encounter
--- OUTSIDE RECORDS SUMMARY | 2024-11-23 10:02 | XMS_ITS ---
Author Organization [facility] Address [address] [place] [address] Care Team Providers Care Natural Resource Officer Name Role Phone Padma SON, Mable Primary Care Provider Rowena Etienne [phone] REASON FOR VISIT 6 week f/u Social History Sex Assigned At : Social History Observation Description Sex Assigned At Female Encounters Encounter Location Date Provider Diagnosis [facility] [employer] [address] [address] 11/23/2024 Rowena Andres Plan Of Treatment Next Appt Details Provider Name:Rowena Andres, 11/23/2024 01:15:00 PM, [address] [place] [address], [address], [address], Provider Name:Nannette Haro, 12/14/2024 01:00:00 PM, [address] [place] [address], [address], Provider Name:Nannette Haro, 01/04/2025 01:00:00 PM, [address] [place] [address], [address], Provider Name:Nannette Haro, 02/01/2025 01:00:00 PM, [address] [place] [address], [address], Progress Notes * KYLIE FUNG MDOB:1979 (44 yo F)Acc No.[id number]:11/23/2024 Patient: KYLIE SCOTT Provider: SOREN VALDES :1980 A ge:44 Y S ex:Female Date:11/23/2024 Address:[address] [place] [address] [place], [place] [id number] Pcp:Mable Rouse NP Subjective: * Chief Complaints: * 1 . 6 week f/u. * Medical History: Objective: * Vitals: Assessment: Plan: * Treatment: * Billing Information: * Visit Code: * Procedure Codes: * Electronic signature of SOREN Bailey on 11/23/2024 at 10:01 AM CDT Sign off status: Pending * Provider: SOREN VALDES Date: 11/23/2024 Generated for Barber finley/Pat/eTangelinesmitting on: 11/23/2024 10:01 AM CDT
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
--- OUTSIDE RECORDS SUMMARY | 2024-11-23 10:02 | XMS_ITS ---
Author Organization [facility] [email or web address] [facility] Address [address] [place] [address] Care Team Providers Care Computer Bookkeeper Name Role Phone Padma SON, Mable Primary Care Provider Rowena Etienne [phone] REASON FOR VISIT Makenna MCCORMACK Social History Sex Assigned At : Social History Observation Description Sex Assigned At Female Encounters Encounter Location Date Provider Diagnosis [facility] [employer] [address] [address] 11/09/2024 Rowena Andres Plan Of Treatment Next Appt Details Provider Name:Rowena Andres, 11/23/2024 01:15:00 PM, [address] [place] [address], [address], [address], Provider Name:Nannette Haro, 12/14/2024 01:00:00 PM, [address] [place] [address], [address], Provider Name:Nannette Haro, 01/04/2025 01:00:00 PM, [address] [place] [address], [address], Provider Name:Nannette Haro, 02/01/2025 01:00:00 PM, [address] [place] [address], [address], [address], Progress Notes * KYLIE FUNG MDOB:1979 (44 yo F)Acc No.[id number]:11/09/2024 Patient: Kamran DENISE KYLIE Hopkins :1980 A ge:44 Y S ex:Female Address:[address] [place] [address] * true * Date: Generated for Barber finley/Pat/Piotritting on: 0 11/23/2024 10:01 AM CDT
== END 2024-11-23 09:07 | disposition home or self-care (01) ==
LOC: ANHSURGERY 09:09
PROVIDERS: Anesthesiology; PCP Registered Nurse; Visit Provider Surgery Plastic and Reconstructive Surgery
DX: Z41.1 Encounter for cosmetic surgery (principal); R94.31 Abnormal electrocardiogram [ECG] [EKG]
CPT/HCPCS: 36415; 85014; 85018; 93005

== ENCOUNTER 2024-11-30 00:41 | Day surgery (SDC) | payer OTHER, SELFPAY ==
[2024-11-17 17:33] VITALS: BMI 28.0
--- NOTE | 2024-11-17 17:34 | PC.NURSE ---
Report to the Outpatient Waiting Room, entrance under the green pavilion located off [facility], at time _0630__ on date _11/30/2024__. Planned Procedure Time: __0830__.? 20 ounces of clear liquids until 0530 Time changes happen often and if your time is changed the preop area will call you the afternoon before. - You and your visitor will be asked to self-screen and do not enter if you have any COVID symptoms. Please call surgeon if you need to reschedule. - A mask is optional within the hospital at this time. Patients may have clear liquids (water, carbonated beverages, clear teas, apple juice) until 3 hours prior to surgery with a maximum of 20 ounces. - No food from midnight until time of surgery and no smoking, or chewing tobacco (or any form of nicotine). No chewing gum, candy or mints. - Infants may have breast milk until 4 hours before surgery, formula 6 hours prior to surgery. - Children will be allowed to drink immediately following surgery.? If applicable, please bring a bottle or sippy cup to assist with drinking. Juice, water, soda, and popsicles are readily available.? For infants on formula, please bring formula the day of surgery.? Pacifiers are allowed. Take only the following medications with a SIP of water on the morning of surgery: _Duloxetine, levothyroxine, valacyclovir_ DO NOT STOP ANY OF YOUR OTHER PRESCRIPTION MEDICATIONS PRIOR TO SURGERY EXCEPT THE FOLLOWING Hold all vitamins and supplements for 3 days per anesthesiologist. Medications to discontinue per physician Date to take last dose Please no make-up, nail yi, hairspray, perfume, deodorant, or body powder the day of surgery.? No jewelry (including any body piercings) or valuables the day of surgery, leave them at home.? Please take a shower or bath the night before, or the morning of, surgery with an antibacterial soap.? Wear comfortable, loose fitting clothing.? Children are encouraged to wear pajamas. - Jewelry must be removed prior to entering the operating room.? Rings and piercings that are not removed may be cut off. - The hospital will not accept responsibility for valuables.? - Please leave all valuables, including medications, at home the day of surgery. If you are going home after surgery, a licensed hook up driver must drive you home.? - NO public transportation without another adult if you receive anesthesia. - We recommend that an adult stay with you for 24 hours following discharge. - We also recommend that you do not drive, make important decision, drink alcoholic beverages, or take any drugs that were not prescribed by your health care provider for at least 24 hours after your discharge time. For Pediatric surgeries, we recommend two adults accompany the child home. Follow any additional instructions given to you from your surgeon. Telephone instructions given to ___Vanessa___and asked if any additional questions and then verbalized understanding. Patient advised to call surgeon office or pre surgery nurse liaison [phone] if any additional questions.
[2024-11-30] VITALS (10 sets, daily range): BP systolic 94–129; BP diastolic 56–87; PULSE 85–112; RESP 15–20; TEMP 36.1–36.9; O2SAT 98–100; BMI 29.0
--- OUTSIDE RECORDS SUMMARY | 2024-11-30 00:44 | XMS_ITS ---
Author Organization [facility] [employer] [facility] Address [address] [place] [address] [address] Care Team Providers Care Haulage Boss Name Role Phone Padma SON, Mable Primary Care Provider Rowena Etienne Unavailable [phone] REASON FOR VISIT New Refill Request Medications Medication SIG (Take, Route, Frequency, Duration) Notes Start Date End Date Status Methylphenidate HCl ER 36 MG 1 tablet ev doe morning Oral once a day for 30 days 11/16/2024 12/16/2024 Active Social History Sex Assigned At : Social History Observation Description Sex Assigned At Female Encounters Encounter Location Date Provider Diagnosis [facility] [employer] [address] [address] 11/16/2024 Rowena Andres Attention-deficit hyperactivity disorder, combined [...] days 11/16/2024 12/16/2024 Next Appt Details Provider Name:Nannette Haro, 01/05/2025 01:00:00 PM, [facility] [place] [address], [address], [address], Provider Name:Rowena Andres, 01/05/2025 02:15:00 PM, [address] [place] [address], [facility] [address], [place], [address], Provider Name:Nannette Haro, 02/02/2025 11:00:00 AM, [address] [address], [place] [address], [place], [address], Provider Name:Nannette Haro, 03/02/2025 11:00:00 AM, [address] [address], [address] [address] [address], [place], [address], Provider Name:Nannette Haro, 04/06/2025 11:00:00 AM, [address] [address], [place] [address], [place], [address], Progress Notes * KYLIE FUNG MDOB:1979 (44 yo F)Acc No.[id number]:11/16/2024 Patient: KYLIE SCOTT :1980 A ge:44 Y S ex:Female Address:[address] [place] [address] * Refills Refill Methylphenidate HCl ER Tablet Extended Release, 36 MG, Oral, 30 Tablet, 1 tablet every morning, once a day, 30 days, Refills=0 * true * Date: Generated for Barber finley/Pat/Piotritting on: 0 11/30/2024 12:44 AM CDT
--- OUTSIDE RECORDS SUMMARY | 2024-11-30 00:44 | XMS_ITS ---
Author Organization [facility] [employer] [facility] Address [facility] [facility] [address] [place] [address] Care Team Providers Care Senior Living Sales Counselor Name Role Phone Padma SON, Mable Primary Care Provider UnavailRowena Stevens Unavailable [phone] Medications Medication SIG (Take, Route, Frequency, Duration) Notes Start Date End Date Status Methylphenidate HCl ER (OSM) 54 MG 1 tablet in the morning Orally Once a day for 30 days 11/25/2024 12/25/2024 Active Social History Sex Assigned At : Social History Observation Description Sex Assigned At Female Encounters Encounter Location Date Provider Diagnosis [facility] [employer] [place] [address] [facility] [address] [facility] [address] [place] [address] 11/25/2024 Rowena Andres Attention-deficit hyperactivity disorder, combined type F90.2 Assessments Encounter Date Diagnosis (ICD Code) Assessment Notes Treatment Notes Treatment Clinical Notes Section Notes 11/25/2024 Attention-deficit hyperactivity disorder, combined type (ICD-10 - F90.2) Struggling with maintaining focus and concentration which is impacting productivity at work and home settings. Plan Of Treatment Medication Medication Name Sig Start Date Stop Date Notes Methylphenidate HCl ER (OSM) 54 MG 1 tablet in the morning Orally Once a day for 30 days 11/25/2024 12/25/2024 Next Appt Details Provider Name:Nannette Haro, 01/05/2025 01:00:00 PM, [address], [address], [address], Provider Name:Rowena Andres, 01/05/2025 02:15:00 PM, [facility], [place] [address], [place], [address], Provider Name:Nannette byers Tahir, 02/02/2025 11:00:00 AM, [address] [address], [place] [address], [place], [address], Provider Name:Nannette byers Tahir, 03/02/2025 11:00:00 AM, [address] [address], [place] [address], [place], [address], Provider Name:Nannette byers Tahir, 04/06/2025 11:00:00 AM, [address] [address], [place] [address], [place], [address], Progress Notes * KYLIE FUNG MDOB:1979 (44 yo F)Acc No.[id number]:11/25/2024 Patient: KYLIE SCOTT :1980 A ge:44 Y S ex:Female Address:[address] [place] [id number] * Refills Start Methylphenidate HCl ER (OSM) Tablet Extended Release, 54 MG, Orally, 30 Tablet, 1 tablet in the morning, Once a day, 30 days, Refills=0 * true * Date: Generated for Barber finley/Pat/Piotritting on: 0 11/30/2024 12:44 AM CDT
--- OUTSIDE RECORDS SUMMARY | 2024-11-30 00:45 | XMS_ITS ---
Author Organization [facility] [employer] Address [address] [facility] [address] [place] [address] Care Team Providers Care Chief Innovation Officer Name Role Phone Padma SON, Mable Primary Care Provider Unavaila Rowena Cruz Unavailable [phone] Allergies No Known Allergies Results Component Value Reference Range Notes UDT Reviewed date:11/23/2024 02:10:12 PM Interpretation: Performing Lab: Notes/Report: THC N 0 - 50 ng/ml Cocaine N 0 - 300 ng/ml Amphetamine N 0 - 1000 ng/ml Buprenorphine (BUP) N 0 - 10 ng/ml Secobarbital (Bar) N 0 - 300 ng/ml Oxazepam (BZO) N 0 - 300 ng/ml 3-dkzuskxexj-3,3-dxseizmu-6,3-diphenylpyrrolidine (EFRAIN P) N 0 - 300 ng/ml Methamphetamine (MET) N 0 - 1000 ng/ml Methylenedioxymethamphetamine (MDMA) N 0 - 500 ng/ml Morphine (MOP 300/[id number]) N 0 - 300 ng/ml Methadone (MTD) N 0 - 300 ng/ml Nortriptyline (TCA) N 0 - 1000 ng/ml Oxycodone N 0 - 300 ng/ml x N 0 - 300 ng/ml REASON FOR VISIT 6 week f/u, UDT Visit, UDT done, Depression screening negative Medications Medication SIG (Take, Route, Frequency, Duration) Notes Start Date End Date Status DULoxetine HCl 60 MG 1 cap Oral twice a day for 90 days Active Levothyroxine Sodium 100 MCG Oral 01/14/2024 Active Varenicline Tartrate 1 MG 1 tablet Orally twice daily for 30 days Active traZODone HCl 50 MG 1 tablet at bedtime Oral Once a day for 90 days Active WEGOVY 0.5 MG/0.5 ML SUBCUTANEOUS PEN INJECTOR *Reorder from [facility] for eRx and Interaction Alerts* 01/14/2024 Active Methylphenidate HCl ER (OSM) 45 MG 1 tablet in the morning Orally Once a day for 30 days 11/23/2024 12/23/2024 Active Methylphenidate HCl ER 36 MG 1 tablet every morning Oral once a day for 30 days 11/16/2024 12/16/2024 Active Social History Tobacco Use: Social History Observation Description Date Details (start date - stop date) Former Smoker NA - NA Sex Assigned At : Social History Observation Description Sex Assigned At Female Tobacco Control (Standard) Question Answer Notes Tobacco use: Former smoker Section Notes: ETOH in evenings/weekends. I have limits Vital Signs Blood pressure systolic 120 mm Hg 11/24/19 Blood pressure diastolic 86 mm Hg 025 Heart Rate 93 /min 11/23/2024 Height 62.00 in 11/23/2024 Weight 150.0 lbs 11/23/2024 BMI 27.43 kg/m2 11/23/2024 Height-cm 157.48 cm 11/23/2024 Weight-kg 68.04 kg 11/23/2024 Encounters Encounter Location Date Provider Diagnosis [facility] [employer] [address] [address] 11/23/2024 Rowena Andres Encounter for screen ing for depression Z13.31 ; Major depressive disorder, recurrent, severe with psychotic symptoms F33.3 ; Generalized anxiety disorder F41.1 ; Attention-deficit hyperactivity disorder, combined type F90.2 ; Post-traumatic stress disorder, chronic F43.12 and Cigarette smoker F17.210 Assessments Encounter Date Diagnosis (ICD Code) Assessment Notes Treatment Notes Treatment Clinical Notes Section Notes 11/23/2024 Encounter for screening for depression (ICD-10 - Z13.31) 11/23/2024 Major depressive disorder, recurrent, severe with psychotic symptoms (ICD-10 - F33.3) Stable, no concerns today. PHQ9= 6 SSRI/SNRI side effects discussed including but not limited to, gastric upset, nausea, vomiting, diarrhea and/or constipation, weight changes, sexual side effects including loss of libido, increased suicidal thoughts/behaviors in children and young adults, and serotonin syndrome. 11/23/2024 Generalized anxiety disorder (ICD-10 - F41.1) Stable, no concerns today, well controlled 11/23/2024 Attention-defici t hyperactivity disorder, combined type (ICD-10 - F90.2) Struggling with maintaining focus and concentration which is impacting productivity at work and home settings. Electronic Prior Authorization was requested for Methylphenidate HCl ER (OSM) 45 MG Tablet Extended Release. Provider can order medication once approval received. 11/23/2024 Post-traumatic stress disorder, chronic (ICD-10 - F43.12) Stable, needs to schedule counseling follow up with nannette 11/23/2024 Cigarette smoker (ICD-10 - F17.210) Current daily smoker, on average about 5 cigarettes daily. Has been smoking since age 14. No history of quitting or attempt at quitting. 11/23/2024 Other Increase Concerta to 45mg daily for ADHD management Plan to attempt to wean off of varenicline next apt Patient educated on all medications including potential benefits, side effects, risks. Educated on proper dosing schedule and importance of compliance. [place] report checked and consistent with prescription history, no controlled substance prescriptions from other providers. -Assessment and treatment plan reviewed with patient. [...] a day for 90 days Varenicline Tartrate 1 MG 1 tablet Orall y twice daily for 30 days traZODone HCl 50 MG 1 tablet at bedtime Oral Once a day for 90 days Methylphenidate HCl ER (OSM) 45 MG 1 tablet in the morning Orally Once a day for 30 days 11/23/2024 12/23/2024 Treatment Notes Assessment Notes Major depressive disorder, r ecurrent, severe with psychotic symptoms SSRI/SNRI side effects discussed includi ng but not limited to, gastric upset, nausea, vomiting, diarrhea and/or constipation, weight changes, sexual side effects including loss of libido, increased suicidal thoughts/behaviors in children and young adults, and serotonin syndrome. Attention-deficit hyperactiv ity disorder, combined type Electronic Prior Authorization was requested for Methylphenidate HCl ER (OSM) 45 MG Tablet Extended Release. Provider can order medication once approval received. Other Increase Concerta to 45mg daily for ADHD management Plan to attempt to wean off of varenicline next apt Patient educated on all medications including potential benefits, side effects, risks. Educated on proper dosing schedule and importance of compliance. [place] report checked and consistent with prescription history, no controlled substance prescriptions from other providers. Next Appt Details Follow Up: 6 Weeks, Reason: med f/u Provider Name:Nannette Haro, 01/05/2025 01:00:00 PM, [address], [facility] [address], [place], [address], Provider Name:Rowena Andres, 01/05/2025 02:15:00 PM, [facility] [address], [facility] [address], [place], [address], Provider Name:Nannette Haro, 02/02/2025 11:00:00 AM, [facility], [place], [address], Provider Name:Nannette Haro, 03/02/2025 11:00:00 AM, [facility], [facility] [address], [place], [address], Provider Name:Nannette Haro, 04/06/2025 11:00:00 AM, [facility] [address], [facility] [address], [place], [address], Progress Notes * KYILE FUNG MDOB:1979 (44 yo F)Acc No.[id number]:11/23/2024 Patient: KYLIE SCOTT Provider: JIL VALDESHNP :1980 A ge:44 Y S ex:Female Date:11/23/2024 Address:[address] [place], [place] [id number] Pcp:Mable Rouse NP Subjective: * Chief Complaints: * 6 week f/uUDT VisitUDT doneDepression screening negative * HPI: H istory of Presenting Problem: Anxiety R ates anxiety 2/10 with 10 being most severe..? Depression R ates depression 1/10 with 10 being most severe. . Mood lability w ith irritable mood. Psychosis d enies current psychosis . Suicidal ideation d enies. ADHD f orgetful in daily activities, easily distracted by extraneous stimuli, often on the go or often acts as if driven by a motor, forgetful in daily activities. Psychotherapy Christina stallings. Here for follow up. Chantix started last apt. S tates it has worked, has not smoked in over two months . Last cigarette was just a few days after starting medication. Reports since last apt a couple of weeks ago, she had one episode of derealization it felt like I was watching my life as a soap opera ; possibly triggered by lack of sleep and increased stress at work. Since then, she has been struggling with maintaining focus and concentration. My mind is always wondering when I am trying to work . Denies feeling depressed, not feeling hopeless or helpless, no suicidal ideation. Sleep is adequate-getting about 7-8 hours nightly. Appetite is good. D epression Screening: ABBY-7 (2018 Edition) F eeling nervous, anxious, or on edge S everal days N ot being able to stop or control worrying?Nearly every day W orrying too much about different things N early every day T rouble relaxing S everal days B eing so restless that it is hard to sit still N ot at all B ecoming easily annoyed or irritable N ot at all F eeling afraid as if something awful might happen N ot at all T otal ABBY-7 Score 8 I f you checked any problems, how difficult have they made it for you to do your work, take care of things at home, or get along with other people? S omewhat difficult I nterpretation of Total ( 5 to 9) Mild [place]-Suicide Severity Rating Scale: Suicide Risk (CSRS-screener) i n the past one month Have you wished you were or wished you could go to sleep and not wake up? N o D epression screening: PHQ-9 L ittle interest or pleasure in doing things?Not at all F eeling down, depressed, or hopeless N ot at all T rouble falling or staying asleep, or sleeping too much N ot at all F eeling tired or having little energy N ot at all P oor appetite or overeating N ot at all F eeling bad about yourself or that you are a failure, or have let yourself or your family down N ot at all T rouble concentrating on things, such as reading the newspaper or watching television N early every day M oving or speaking so slowly that other people could have noticed; or the opposite, being so fidgety or restless that you have been moving around a lot more than usual N ot at all T houghts that you would be better off or of hurting yourself in some way N ot at all T otal Score 3 I nterpretation M inimal Depression Intervention D epression Screening Findings N egative S uicide Risk Assessment Performed _ * ROS: P sychiatric: Patient denies a uditory / visual hallucinations, delusions, anxiety, suicidal thoughts, psychosis, alfredo. P atient complains of d ifficulty concentrating. C mayelin rodriguez [facility] for details. * Medical History: * Surgical History: T onsilectomy/adenoids 09/01/1987Breast surgery (86100) 09/01/1999Cosmetic surgery 09/01/2014ny surgical history 09/01/2020Hysterectomy ([id number]) 07/16/2021 * Hospitalization/Major Diagno stic Procedure: * [...] Control (Standard) T obacco use: F ormer smoker M igrated Social History: M igrated [...] INJECTOR , Notes to Pharmacist: *Reorder from [facility] for eRx and Interaction Alerts*DULoxetine HCl 60 MG Capsule Delayed Release Particles 1 cap Oral twice a day traZODone HCl 50 MG Tablet 1 tablet at bedtime Oral Once a day Varenicline Tartrate 1 MG Tablet 1 tablet Orally twice daily , stop date 12/12/2024Methylphenidate HCl ER 36 MG Tablet Extended Release 1 tablet every morning Oral once a day , stop date 12/16/2024Medication List reviewed and reconciled with the patientTaking Levothyroxine Sodium 100 MCG Tablet Oral Taking WEGOVY 0.5 MG/0.5 ML SUBCUTANEOUS PEN INJECTOR , Notes to Pharmacist: *Reorder from [facility] for eRx and Interaction Alerts*Taking DULoxetine HCl 60 MG Capsule Delayed Release Particles 1 cap Oral twice a day Taking traZODone HCl 50 MG Tablet 1 tablet at bedtime Oral Once a day Taking Varenicline Tartrate 1 MG Tablet 1 tablet Orally twice daily , stop date 12/12/2024Taking Methylphenidate HCl ER 36 MG Tablet Extended Release 1 tablet every morning Oral once a day , stop date 12/16/2024Medication List reviewed and reconciled with the patient * Allergies: N .K.D.A.no[Allergies Verified] Objective: * Vitals: B P:120/86mm Hg, HR:93/min, Wt:150.0lbs, Wt-k.04 kg, Ht: 62.00 in, Ht-cm: 157.48 cm, BMI:27.43Index, Body Surface Area: 1.72. * Examination: P sychiatry: Appearance: w ell-groomed. [...] otes :Stable, no concerns today. PHQ9= 6 2 . E ncounter for screening for depression - Z13.31 3 . G eneralized anxiety disorder - F41.1 N otes :Stable, no concerns today, well controlled 4 . A ttention-deficit hyperactivity disorder, combined type - F90.2 ? N otes :Struggling with maintaining focus and concentration which is impacting productivity at work and home settings. 5 . P ost-traumatic stress disorder, chronic - F43.12 N otes :Stable, needs to schedule counseling follow up with nannette 6 . C igarette smoker - F17.210 N otes :Current daily smoker, on average about 5 cigarettes daily. Has been smoking since age 14. No history of quitting or attempt at quitting. Plan: * Treatment: 2. A ttention-deficit hyperactivity disorder, combined type Increase Methylphenidate HCl ER (OSM) Tablet Extended Release, 45 MG, 1 tablet in the morning, Orally, Once a day, 30 days, 30 Tablet, Refills 0. Notes: Electronic Prior Authorization was requested for Methylphenidate HCl ER (OSM) 45 MG Tablet Extended Release. Provider can order medication once approval received. 3. C igarette smoker Refill Varenicline Tartrate Tablet, 1 MG, 1 tablet, Orally, twice daily, 30 days, 60, Refills 1.? 4. O thers Notes: Increase Concerta to 45mg daily for ADHD management Plan to attempt to wean off of varenicline next apt Patient educated on all medications including potential benefits, side effects, risks. Educated on proper dosing schedule and importance of compliance. [place] report checked and consistent with prescription history, no controlled substance prescriptions from other providers. Clinical Notes: -Assessment and treatment plan reviewed with patient. -Compliance with treatment plan importance discussed. -Discussed the risks/benefits of this medication -Discussed medication side effects. -Contact office if symptoms worsen. -Discussed that it can take up to 6-8 weeks to see full therapeutic effects of psychotropic medications. -Crisis prevention hotline [phone]. * Labs: * L ab: UDT (Collection Date & Time - 11/23/2024) Value Reference Range T HC N 0 - 50 ng/ml * C ocaine N 0 - 300 ng/ml * A mphetamine N 0 - 1000 ng/ml * B uprenorphine (BUP) N 0 - 10 ng/ml * S ecobarbital (Bar) N 0 - 300 ng/ml * O xazepam (BZO) N 0 - 300 ng/ml * 2 -ethylidene-1,1-zewhhupr-9,3-diphenylpyrrolidine (EDDP) N 0 - 300 ng/ml * M ethamphetamine (MET) N 0 - 1000 ng/ml * M ethylenedioxymethamphetamine (MDMA) N 0 - 500 ng/ml * M orphine (MOP 300/[id number]) N 0 - 300 ng/ml * M ethadone (MTD) N 0 - 300 ng/ml * N ortriptyline (TCA) N 0 - 1000 ng/ml * O xycodone N 0 - 300 ng/ml * x N 0 - 300 ng/ml * Procedure Codes: 8 0306 DRUG TST PRSMV READ INSTRMNT ASSTD DIR OPT [id number] BEHAV ASSMT W/SCORE & DOCD/STAND [id number] CLIN DEPRESSION SCREEN [id number] VISIT COMPLEXITY INHERENT TO ONGOING CARE RELATED TO A PATIENT'S SINGLE, SERIOUS CONDITION OR A COMPLEX CONDITION * Follow Up: 6 Weeks (Reason: med f/u) * Billing Information: * Visit Code: 25293 OFFICE OUTPATIENT VISIT 25 MINUTES DETAILED HISTORY AND EXAM/MODERATE MEDICAL DECISION MAKING. * Procedure Codes: 78796 DRUG TST PRSMV READ INSTRMNT ASSTD DIR OPT OBS. 40976 BEHAV ASSMT W/SCORE & DOCD/STAND INSTRUMENT. G8431 CLIN DEPRESSION SCREEN DOC. G2211 VISIT COMPLEXITY INHERENT TO ONGOING CARE RELATED TO A PATIENT'S SINGLE, SERIOUS CONDITION OR A COMPLEX CONDITION. * Sign off status: Completed true * Provider: SOREN VALDES Date: 0 11/23/2024 Generated for Barber finley/Pat/Drakeransmitting on: 0 11/30/2024 12:45 AM CDT History and Physical Notes * HPI (History of Present Illness) Category Sub-Category Detail Notes Category Not es History of Presenting Problem Anxiety Rates anxiety 2/10 with 10 b eing most severe. Here for follow up. Chantix started last apt. States it has worked, has not smoked in over two months . Last cigarette was just a few days after starting medication. Reports since last apt a couple of weeks ago, she had one episode of derealization it felt like I was watching my life as a soap opera ; possibly triggered by lack of sleep and increased stress at work. Since then, she has been struggling with maintaining focus and concentration. My mind is always wondering when I am trying to work . Denies feeling depressed, not feeling hopeless or helpless, no suicidal ideation. Sleep is adequate-getting about 7-8 hours nightly. Appetite is good. Depression Rates depression 1/1 0 with 10 being most severe. Suicidal [...] staying asleep, or sl eeping too much: Not at all Feeling tired or having little energy: N ot at all Poor appetite or overeating: Not at all Feeling bad about yourself o r that you are a failure, or have let yourself or your family down: Not at all Trouble concentrating on thi ngs, such as reading the newspaper or watching television: Nearly every day Moving or speaking so slowly that other people could have noticed; or the opposite, being so fidgety or restless that you have been moving around a lot more than usual: Not at all Thoughts that you would be b ricahrd off or of hurting yourself in some way: Not at all Total Score: 3 Interpretation: Minimal Depression Intervention Depression Screening Findings: N egative Suicide Risk Assessment Performed: ____ Depression Screening ABBY-7 (2018 Edition) Feelin g nervous, anxious, or on edge: Several days Not being able to stop or control worryi ng: Nearly every day Worrying too much about different things : Nearly every day Trouble relaxing: Several days Being so restless that it is hard to sit still: Not at all Becoming easily annoyed or irritable: No t at all Feeling afraid as if something awful jamel ht happen: Not at all Total ABBY-7 Score: 8 If you checked any problems, how difficult have they made it for you to do your work, take care of things at home, or get along with other people?: Somewhat difficult Interpretation of Total: (5 to 9) Mild [place]-Suicide Severity Rating Scale Suicide Risk (CSRS-screener) in the past one month Have you wished you were or wished you could go to sleep and not wake up?: No Examination Category Sub-Category Detail Notes Category Not [...]
--- OUTSIDE RECORDS SUMMARY | 2024-11-30 00:45 | XMS_ITS | Data Portability ---
Author Organization [facility] [place] Address [address] [place] [address] Care Team Providers Care Insurance Account Assistant Name Role Phone PUNEET MAYNARD Primary Care [...] . Lab CBC w/ auto diff 2021 [facility] (Lab), [address] [place], [address], 05:39:25 CMP, serum or plasma 2021 [facility] (Lab), [address] [place], [address], 05:39:26 lipid panel, blood 2021 022 [facility] (Lab), [address], [place], [address], 2 05:39:25 TSH, serum or plasma 2021 022 [facility] (Lab), [address], [place], [address], 2 05:39:26 vitamin D, 25-hydro xy, total, serum 2021 022 [facility] (Lab), [address], [place], [address], 2 05:39:27 hormone panel, serum or plasma 2021 022 [facility] (Lab), [address], [place], [address], 2 05:39:27 Referral None recorded . Procedures None recorded . Surgeries None recorded . Imaging MAMMO, screenin g, bilatera l [address] [facility], [address], [place], [address], 4 16:03:05 MAMMO, screenin g, digital, bilatera l 2022 023 [facility], [address], [place], [address], 3 16:01:29 Medication Orders estradio l 1 mg tablet 2021 022 [facility] [address] , [place], [address], 3 15:20:02 Patient TargetsNo targets recorded. Patient InstructionsNo instructions recorded. Reason for Referral None Reported. Results Created Date Observation Date Name Description Value Unit Range Abnormal Flag Note LastModifiedBy Organization Detail LastModifiedTime 01/31/20 22 01/30/2022 CBC W/DIF F WBC 7.6 10'3/ uL 3.6-10 .2 Not Available [facility] (Lab) [address] , [place], [address], 01/31/2022 05:39:25 01/31/20 22 01/30/2022 CBC W/DIF F RBC 4.30 10'6/ uL (based on docume nted legal sex) 4.10-5 .30 Not Available [facility] (Lab) [address], [place], [address], 01/31/2022 05:39:25 01/31/20 22 01/30/2022 CBC W/DIF F HGB 13.1 g/dL (based on docume nted legal sex) 11.9-1 5.8 Not Available [facility] (Lab) [address], [place], [address], 01/31/2022 05:39:25 01/31/20 22 01/30/2022 CBC W/DIF F HCT 39.5 % (based on docume nted legal sex) 37.4-4 8.3 Not Available [facility] (Lab) [address] , [place], [address], 01/31/2022 05:39:25 01/31/20 22 01/30/2022 CBC W/DIF F MCV 93.0 fL 82.0-9 9.0 Not Available [facility] (Lab) [address] , [place], [address], 01/31/2022 05:39:25 01/31/20 22 01/30/2022 CBC W/DIF F MCH 31.0 pg 27.0-3 3.0 Not Available [facility] (Lab) [address], [place], [address], 01/31/2022 05:39:25 01/31/20 22 01/30/2022 CBC W/DIF F MCHC 33.0 g/dL 32.0-3 6.0 Not Available [facility] (Lab) [address], [place], [address], 01/31/2022 05:39:25 01/31/20 22 01/30/2022 CBC W/DIF F RDW 14.0 % 11.0-1 5.0 Not Available [facility] (Lab) [address], [place], [address], 01/31/2022 05:39:25 01/31/20 22 01/30/2022 CBC W/DIF F plt 319 10'3/ uL 150-45 0 Not Available [facility] (Lab) [address], [place], [address], 01/31/2022 05:39:25 01/31/20 22 01/30/2022 CBC W/DIF F MPV 9.8 fL 9.8-12 .7 Not Available [facility] (Lab) [address], [place], [address], 01/31/2022 05:39:25 01/31/20 22 01/30/2022 CBC W/DIF F NRBC's 0.00 % 0 Not Available [facility] (Lab) [address], [place], [address], 01/31/2022 05:39:25 01/31/20 22 01/30/2022 CBC W/DIF F absolute NRBCs 0.0 10'3/ uL 0 Not Available [facility] (Lab) [address], [place], [address], 01/31/2022 05:39:25 01/31/20 22 01/30/2022 CBC W/DIF F neutrophils 61.0 % 37.0-7 2.0 Not Available [facility] (Lab) [address] [place], [address], 01/31/2022 05:39:25 01/31/20 22 01/30/2022 CBC W/DIF F lymphocytes 30.0 % 16.0-4 8.0 Not Available [facility] (Lab) [address], [place], [address], 01/31/2022 05:39:25 01/31/20 22 01/30/2022 CBC W/DIF F monocytes 7.0 % 4.0-14 .0 Not Available [facility] (Lab) [address], [place], [address], 01/31/2022 05:39:25 01/31/20 22 01/30/2022 CBC W/DIF F eosinophils 2.0 % 0.0-9. 0 Not Available [facility] (Lab) [address] [place], [address], 01/31/2022 05:39:25 01/31/20 22 01/30/2022 CBC W/DIF F basophils 0.0 % 0.0-2. 0 Not Available [facility] (Lab) [address] [place], [address], 01/31/2022 05:39:25 01/31/20 22 01/30/2022 CBC W/DIF F immature granulocytes 0.0 % no define d refere nce range Not Available [facility] (Lab) [address], [place], [address], 01/31/2022 05:39:25 01/31/20 22 01/30/2022 CBC W/DIF F absolute neutrophils 4.7 10'3/ uL 1.1-6. 0 Not Available [facility] (Lab) [address] [place], [address], 01/31/2022 05:39:25 01/31/20 22 01/30/2022 CBC W/DIF F absolute lymphocytes 2.3 10'3/ uL 0.7-3. 4 Not Available [facility] (Lab) [address] [place], [address], 01/31/2022 05:39:25 01/31/20 22 01/30/2022 CBC W/DIF F absolute monocytes 0.5 10'3/ uL 0.3-1. 0 Not Available [facility] (Lab) [address], [place], [address], 01/31/2022 05:39:25 01/31/20 22 01/30/2022 CBC W/DIF F absolute eosinophils 0.1 10'3/ uL 0.0-0. 6 Not Available [facility] (Lab) [address], [place], [address], 01/31/2022 05:39:25 01/31/20 22 01/30/2022 CBC W/DIF F absolute basophils 0.0 10'3/ uL 0.0-0. 1 Not Available [facility] (Lab) [address], [place], [address], 01/31/2022 05:39:25 01/31/20 22 01/30/2022 CBC W/DIF [...] resul ts are expec cherie. Not Available [facility] (Lab) [address], [place], [address], 01/31/2022 05:39:25 01/31/20 22 01/30/2022 LIPID PANEL ,AMA (LDL- CALC) total cholesterol 227 mg/dL 0-[address] [facility] (Lab) [address], [place], [address], 01/31/2022 05:39:25 01/31/20 22 01/30/2022 LIPID PANEL ,AMA (LDL- CALC) triglyceride s 138 mg/dL 0.00-1 50.00 NCEP Refer ence Value s for Trigl yceri ganga: Apple l: <150 mg/dL Borde rline High: 150 - 199 mg/dL High: 200 - 499 mg/dL Very High: >/= 500 mg/dL Not Available [facility] (Lab) [address], [place], [address], 01/31/2022 05:39:25 01/31/20 22 01/30/2022 LIPID PANEL ,AMA (LDL- CALC) HDL cholesterol 64 mg/dL >[address] [facility] (Lab) [address], [place], [address], 01/31/2022 05:39:25 01/31/20 22 01/30/2022 LIPID PANEL [...] mg/dL , HDL <40 mg/dL Not Available [facility] (Lab) [address], [place], [address], 01/31/2022 05:39:25 01/31/20 22 01/30/2022 LIPID PANEL ,AMA (LDL- CALC) non-HDL cholesterol 163 mg/dL no refere nce range A reaso nable goal for non-H DL jessica stero l is one that is 30 mg/dL highe r than the LDL jessica stero l goal. Not Available [facility] (Lab) [address] [place], [address], 01/31/2022 05:39:25 01/31/20 22 01/30/2022 LIPID PANEL ,AMA (LDL- CALC) chol/HDL ratio 3.5 . 0.0-5. 0 Not Available [facility] (Lab) [address], [place], [address], 01/31/2022 05:39:25 01/31/20 22 01/30/2022 CMP(C OMPRE HENSI VE METAB OLIC PANEL ) sodium 140 mmol/ L 133-14 6 Not Available [facility] (Lab) [address], [place], [address], 01/31/2022 05:39:26 01/31/20 22 01/30/2022 CMP(C OMPRE HENSI VE METAB OLIC PANEL ) potassium 4.1 mmol/ L 3.5-5. 1 Not Available [facility] (Lab) [address], [place], [address], 01/31/2022 05:39:26 01/31/20 22 01/30/2022 CMP(C OMPRE HENSI VE METAB OLIC PANEL ) chloride 104 mmol/ L 98-107 Not Available [facility] (Lab) [address], [place], [address], 01/31/2022 05:39:26 01/31/20 22 01/30/2022 CMP(C OMPRE HENSI VE METAB OLIC PANEL ) carbon dioxide 25 mmol/ L 21-31 Not Available [facility] (Lab) [address], [place], [address], 01/31/2022 05:39:26 01/31/20 22 01/30/2022 CMP(C OMPRE HENSI VE METAB OLIC PANEL ) anion gap 11 mmol/ L 4-13 Not Available [facility] (Lab) [address], [place], [address], 01/31/2022 05:39:26 01/31/20 22 01/30/2022 CMP(C OMPRE HENSI VE METAB OLIC PANEL ) blood urea nitrogen 16 mg/dL 7-25 Not Available [facility] (Lab) [address], [place], [address], 01/31/2022 05:39:26 01/31/20 22 01/30/2022 CMP(C OMPRE HENSI VE METAB OLIC PANEL ) creatinine 0.89 mg/dL 0.60-1 .30 Not Available [facility] (Lab) [address], [place], [address], 01/31/2022 05:39:26 01/31/20 22 01/30/2022 CMP(C OMPRE HENSI VE METAB OLIC PANEL ) egfrcr (CKD-epi 2020) 82 mL/mi n/1.7 3_m2 >=60 Not Available [facility] (Lab) [address], [place], [address], 01/31/2022 05:39:26 01/31/20 22 01/30/2022 CMP(C OMPRE HENSI VE METAB OLIC PANEL ) calcium 9.2 mg/dL 8.3-10 .5 Not Available [facility] (Lab) [address], [place], [address], 01/31/2022 05:39:26 01/31/20 22 01/30/2022 CMP(C OMPRE HENSI VE METAB OLIC PANEL ) glucose 64 mg/dL 70-100 low Not Available [facility] (Lab) [address], [place], [address], 01/31/2022 05:39:26 01/31/20 22 01/30/2022 CMP(C OMPRE HENSI VE METAB OLIC PANEL ) protein, total 6.7 g/dL 6.4-8. 3 Not Available [facility] (Lab) [address], [place], [address], 01/31/2022 05:39:26 01/31/20 22 01/30/2022 CMP(C OMPRE HENSI VE METAB OLIC PANEL ) albumin 4.2 g/dL 3.5-5. 0 Not Available [facility] (Lab) [address], [place], [address], 01/31/2022 05:39:26 01/31/20 22 01/30/2022 CMP(C OMPRE HENSI VE METAB OLIC PANEL ) ALT 12 units /L 9-43 Not Available [facility] (Lab) [address] [place], [address], 01/31/2022 05:39:26 01/31/20 22 01/30/2022 CMP(C OMPRE HENSI VE METAB OLIC PANEL ) alkaline phosphatase 54 units /L 34-104 Not Available [facility] (Lab) [address], [place], [address], 01/31/2022 05:39:26 01/31/20 22 01/30/2022 CMP(C OMPRE HENSI VE METAB OLIC PANEL ) AST 11 units /L 13-39 low Not Available [facility] (Lab) [address], [place], [address], 01/31/2022 05:39:26 01/31/20 22 01/30/2022 CMP(C OMPRE HENSI VE METAB OLIC PANEL ) bilirubin, total 0.7 mg/dL 0.2-1. 2 Not Available [facility] (Lab) [address], [place], [address], 01/31/2022 05:39:26 01/31/20 22 01/30/2022 TSH, REFLE X FREE T4 TSH 4.32 uIU/m L 0.30-5 .33 Not Available [facility] (Lab) [address] [place], [address], 01/31/2022 05:39:26 01/31/20 22 01/30/2022 VITAM IN D, 25-OH (TOTA L D2/D3 ) vitamin D, 25-hydroxy, total 63.4 NG/mL 30-80 NOTE: Defic iency : <20 ng/mL Insuf ficie ncy: 20-29 ng/mL Optim um Level : 30-80 ng/mL Possi ble Toxic ity: >80 ng/mL Most patie nts with toxic ity have level s >150 ng/mL . Not Available [facility] (Lab) [address] [place], [address], 01/31/2022 05:39:26 01/31/20 22 01/30/2022 FSH, LH, [...] 561-2 1280 pg/mL 3rd Trime ster8 525-> 79358 pg/mL Not Available [facility] (Lab) [address] [place], [address], 01/31/2022 05:39:27 01/31/20 22 01/30/2022 FSH, LH, ESTRA DIOL FSH 8.0 mIU/m L This assay was perfo rmed using [employer] n reage nts and test kits. Value s obtai janeth with other assay metho ds or kits canno t be used [facility] . Femal es Folli cular : 3.5-1 2.5 mIU/m L Ovula tion: 4.7-2 1.5 mIU/m L Lutea l: 1.7-7 .7 mIU/m L Postm enopa use: 25.8- 134.8 mIU/m L Not Available [facility] (Lab) [address] [place], [address], 01/31/2022 05:39:27 01/31/20 22 01/30/2022 FSH, LH, [...] use: 7.7-5 8.5 mIU/m L Not Available [facility] (Lab) [address], [place], [address], 01/31/2022 05:39:27 01/31/20 22 01/30/2022 IMAGE GUIDE [...] as clini deb howard nted. Not Available [facility] (Lab) [address], [place], [address], 02/04/2022 09:19:08 03/06/20 22 03/06/2022 MAMMO , scree blanca, bilat eral No observ ation record ed. [email or web address] [place] [address], [place], [address], 03/21/2022 11:14:09 03/17/20 23 03/17/2023 MAMMO , scree blanca, bilat eral No observ ation record ed. [email or web address] [facility] [address], [place], [address], 06/30/2023 14:28:46 03/24/20 24 03/24/2024 MAMMO , danyelle rios, bilat eral No observ ation record ed. [facility] [address], [place], [address], 03/28/2024 10:56:54 Result Notes None recorded. Problems Name Problem SNOMED Code Status Onset Date Resolution Date Notes Provider Name and Address Organization Details Recorded Time Pregnanc y test negative 670873808 Completed 201304/11/2021 Negative Test;Prac almas ID: 0001 Puneet santa [facility] 11:19:15 Screenin g for malignan t neoplasm of cervix Completed 201304/11/2021 Pap Smear;Pra ctice ID: 0001 Puneet santa [facility] 11:19:17 Irregula r periods [id number] Completed 201304/11/2021 Irregular menstrual cycle;Pra ctice ID: 0001 Puneet santa [facility] 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 11:19:22 Acute vaginiti s [id number] Completed 201504/11/2021 Acute vaginitis ;Practice ID: 0001 Puneet santa [facility] 11:19:08 Screenin g for malignan t neoplasm of rectum Completed 201804/11/2021 Encounter for screening for malignant neoplasm of rectum;Pr actice ID: 0001 Puneet santa [facility] 11:19:19 Syphilis test finding [id number] Completed 201904/11/2021 Encntr screen for infection s w sexl mode of transmiss ;Practice ID: 0001 Puneet santa [facility] 11:19:[address] Concept Completed 201804/11/2021 Encntr for general adult medical exam w/o abnormal findings; Recorded Elsewhere : No Locati on: [facility] So urce: EHR Chron ic: N Practic e ID: 0001 Bill able Time: 03:00:00 PM Puneet santa [facility] 11:19:20 Speciali zed medical examinat ion Completed 201004/11/2021 Routine gynecolog ical examinati on;Practi ce ID: 0001 Puneet santa [facility] 11:19:24 Adult health examinat ion Completed 201304/11/2021 Routine general medical examinati on at a health care facility; Practice ID: 0001 Puneet santa [facility] 11:19:10 Atypical squamous cells of undeterm ined signific ance on cervical Papanico laou smear [id number] Completed 201304/11/2021 Papanicol aou smear of cervix with atypical squamous cells of undetermi janeth significa nce (ASC-US); Recorded Elsewhere : No Locati on: [facility] So urce: EHR Chron ic: N Practic e ID: 0001 Bill able Time: 11:00:00 AM Puneet santa [facility] 11:19:11 Problem Notes None recorded. Procedures Surgical History Date Name Laterality Status Provider Name and Address Organization Details Recorded Time 03/17/20 Date of Last Mammogram completed Latasha Hinojosa [facility] 12/17/2023 12:08:15 01/31/20 22 Date of Last Pap Smear completed Tyra Berrios [facility] 11/27/2022 15:21:49 07/17/20 21 TOTAL HYSTERECTOMY, LAPAROSCOPIC, WITH BILATERAL SALPINGECTOMY (SURG) completed Alexa Thomas [facility] 07/18/2021 10:19:51 11/14/19 21 completed [facility] 10/26/2020 14:36:14 09/01/19 12 abdominoplasty completed [facility] 10/26/2020 14:38:46 09/01/19 08 delivery completed [facility] 10/26/2020 14:38:36 09/01/19 00 Breast reduction completed [facility] 10/26/2020 14:38:17 09/01/18 88 Tonsillectomy completed [facility] 10/26/2020 14:38:07 Tubal Ligation completed [facility] 10/26/2020 14:37:57 Imaging Results Imaging Date Name Status LastModified by Organiz ation Details LastModified Time 03/06/2022 MAMMO, screening, bilateral completed [address] [place] [address], [address], 03/21/2022 11:14:09 03/17/2023 MAMMO, screening, bilateral completed [address], [address], 06/30/2023 14:28:46 03/24/2024 MAMMO, screening, bilateral completed [address], [address], 03/28/2024 10:56:54 Procedure Notes None recorded. Medical [...] Elsewher e: No Locat ion: [facility] odify By: anali menchaca DateTime : [...] Elsewher e: Yes Loca tion: [facility] odify By: camila Ballard ter DateTime : 08/02/20 16 08:15:00 AM Not Available Not Available Not Available Flagyl 500 mg tablet take 1 tablet by oral route every 12 hours 10/25 completed Prescrib ed Elsewher e: No Locat ion: [facility] odify By: camila Ballard ter DateTime [...] Elsewher e: Yes Loca tion: Sarah Bethrebecca [facility] odify By: lorraine menchaca DateTime : 09/08/19 [...] Elsewher e: No Locat ion: [facility] odify By: camila purdy DateTime : [...] Prescrib ed Elsewher e: Yes Loca tion: [facility] M odify By: [email or web address] trick En counter [...] Updated DateTime 07/25/2021 152.4 cm 32.2 kg/m2 41406.74 g 113 mm[Hg] 77 mm[Hg] Rhiannon Nae [facility] 13:59:44 Date Recorded Body height Body mass index (BMI) Body weight Systolic blood pressure Diastolic blood pressure Provider Name and Address Organization Details Last Updated DateTime 01/30/2022 152.4 cm 28.7 kg/m2 72222.08 g 122 mm[Hg] 85 mm[Hg] Rhiannon Soni [facility] 2 17:41:09 Date Recorded Body height Body mass index (BMI) Body weight Systolic blood pressure Diastolic blood pressure Provider Name and Address Organization Details Last Updated DateTime 11/27/2022 154.94 cm 31.4 kg/m2 01696.33 g 115 mm[Hg] 80 mm[Hg] Tyra Berrios [facility] 3 15:19:32 Date Recorded Body height Body mass index (BMI) Body weight Systolic blood pressure Diastolic blood pressure Provider Name and Address Organization Details Last Updated DateTime 12/17/2023 154.94 cm 32.1 kg/m2 47365.7 g 127 mm[Hg] 85 mm[Hg] Latasha Hinojosa [facility] 4 12:04:41 Social History Question Answer Notes LastModified by Organizat ion Details LastModified Time Tobacco Smoking Status Current Some Day Smoker Tyra Berrios [facility], [facility] 11/27/2022 15:19:47 What Is Your Level [...] Or The Highest Degree You Have Received? [id number] Information not available 11/27/2022 What Is Your Occupation? [employer] Information not available 12/17/2023 Are There Any [...] Anxious, Or Unable To Sleep At Night)? [id number] Information not available 11/27/2022 Do You Use [...] SNOMED-CT Code Diagnosis ICD10 Code Diagnosis Note [id number] Hood Maurice MD [place] [address] [address] 10/26/2020 14:21:05 10/26/2020 15:01:18 Gynecologic examination [id number] Z01.419 This patient is here for her annual exam. A thorough history was taken. A physical exam was performed. Age appropriat e routine health screening was ordered, performed, and discussed. Recommende d testing was ordered. She was asked to follow up in one year. She will be informed of any test results. Mammogram - [ Mammogram is scheduled] Pap - today [id number] LUCIA [facility] [address] [address] 04/11/2021 11:28:56 04/11/2021 14:06:37 Pain in pelvis 76412158 R10.2 Update TVUS to be updated.Le tter [...] answered to patient satisfacti on. Urinary symptoms 3496770 08 R39.9 Neg [id number] Gini Medley [place] [address] [address] 04/16/2021 14:43:19 04/16/2021 15:21:40 Pain in pelvis 52595367 R10.2 [id number] Mary Chappell , [facility] [address] [address] 05/01/2021 14:36:15 05/01/2021 15:56:44 Uterine leiomyoma 92025135 D25.9 R10.2 TVUS reviewed.I have advised MD [...] this patient s visit, including available hand music critic upon arrive, temperatur e check and being asked a series of screening questions. All staff wore face coverings during this encounter, as well as provided additional cleaning and sanitizing of all surfaces, including countertop s, pens, chairs, door handles, light switches, etc, prior to and following the patient s visit. [id number] Hood Maurice MD [place] [address] [address] 05/12/2021 09:21:40 05/12/2021 10:35:05 Menorrhagia [id number] N92.0 Pain in pelvis 59636231 R10.2 this patient is a 40-year-ol d female who has severe menorrhagi a and severe pelvic pain. We discussed medical treatment in detail. Patient needs definitive surgical treatment. She has profound pain that severely affects her quality of life and activities of daily living in her [facility] ips. We have agreed to perform total laparoscop ic hysterecto my and bilateral salpingect carisa. We talked about the procedure in detail. We talked about the risks and benefits of all the other options are available to her for these problems. We spent more than 25 minutes face-to-fa ce discussing these very complex topics and agreed to perform surgery, major surgery. [id number] Hood Maurice MD [place] [address],[place] [address] 07/11/2021 13:52:19 07/11/2021 14:43:11 Menorrhagia 129258855 N92.0 this patient is a 41-year-ol d female with severe menorrhagi a and dysmenorrh ea. We have agreed to perform total laparoscop ic hysterecto my bilateral salpingect carisa. She understand s the risks, benefits, and alternativ es. She has completed the informed consent process and is ready to proceed. Dysmenorrhea [id number] N 94.6 [id number] Hood Maurice MD [place] [address],[place] [address] 07/20/2021 11:45:26 07/20/2021 11:46:02 [id number] Hood Maurice MD [place] [address],[facility] [address] 07/25/2021 13:47:56 07/25/2021 14:24:46 Postoperative care 241971579 Z48.89 This patient is a 41-year-ol d [...] bleeding. She will follow up as needed. [id number] Hood Maurice MD [place] [address] [address] 01/30/2022 17:30:43 01/30/2022 18:27:35 Gynecologic examination 36692686 Z01.419 This patient is here for her annual exam. A thorough history was taken. A physical exam was performed. Age appropriat e routine health screening was ordered, performed, and discussed. Recommende d testing was ordered. She was asked to follow up in one year. She will be informed of any test results. Mammogram - [ Mammogram is scheduled] Pap - today Menopausal symptom 28542 002 N95.1 [id number] LUCIA Bey [place] [address] [address] 11/27/2022 14:44:45 11/27/2022 17:46:26 Screening for malignant neoplasm of breast 757976030 Z12.39 Gynecologi c examination 90729579 Z01.419 Suggested Calcium with Vitamin D 1200-1500m g daily. Patient advised to get an annual flu shot in the fall and she could obtain at [facility] or [facility] clinic. Also to obtain TDap vaccinatio n [...] in 1 year or sooner if needed [id number] Mary Chappell , [facility] [address] [place] [place] [address] 12/17/2023 11:59:55 12/17/2023 21:01:42 Gynecologic examination [id number] Z01.419 Suggested Calcium with Vitamin D 1200-1500m g daily. Patient advised to get an annual flu shot in the fall and she could obtain at [facility] or [facility] care clinic. Also to obtain TDap vaccinatio [...] na Routine Labs PCP Screening mammography [id number] Z12.31 Health Concerns Section Related Observation LastModified by Organization Detai ls LastModified Time None Recorded Concern Status LastModified by Organization Details LastModified Time None Recorded Advance Directives Directive None Recorded Payers Encounter Date Sequence Insurance Name Policy Number Policy Castillo Covered Member ID Castillo Member ID Guarantor Name 07/17/2021 1 [id number] 1 Eliane Conley [id number] Eliane Conley 07/25/2021 1 [place] [id number] 1 Eliane Conley [id number] Eliane Conley 01/30/2022 1 [place] [id number] 1 Eliane Conley [id number] Eliane Conley 01/30/2022 2 [place] [facility] Eliane Conley [id number] Eliane Conley 11/27/2022 2 [place] [facility] Eliane Conley [id number] Eliane Conley 11/27/2022 1 [place] [facility] [employer] [id number] Eliane Conley [id number] Eliane Conley 12/17/2023 2 [place] [facility] Eliane Conley [id number] Eliane Conley 12/17/2023 1 [place] [facility] [employer] [id number] Eliane Conley [id number] Eliane Conley Notes Date Note Type Note [...] needed. Hood Maurice MD [address], [place], [address], [facility] 07/25/2021 14:23:43 01/30/2022 text/html Annual GYNReport [...] exercise Hood Maurice MD [address], [place], [address], [facility] 01/30/2022 18:21:49 11/27/2022 text/html Annual GYNReport [...] age 38 LUCIA Bey [address], [place], [address], [facility] 11/27/2022 17:18:57 12/17/2023 text/html Annual Log Grader Post-MenopausalRep orted bypatient.Menopaus al Symptoms:no menopausal symptoms; [...] colonoscopy (PCP) LUCIA Cheney- [address], [place], [address], [facility] 12/17/2023 17:41:45 OBGyn Episode Ob Episode Information Episode Created Date Number of Fetuses Patient Bloodtype Patient rh Status Prepregnancy Weight lbs Domestic Partner Domestic Partner Phone Father Name Dry Box Tender Status 10/26/19 21 2 CLOSED Fetus Data [...] Domestic Partner Domestic Partner Phone Father Name Dry Box Tender Status 10/26/19 21 1 CLOSED Fetus Data [...] Domestic Partner Domestic Partner Phone Father Name Dry Box Tender Status 10/26/19 21 1 CLOSED Fetus Data [...] Domestic Partner Domestic Partner Phone Father Name Dry Box Tender Status 10/26/19 21 1 CLOSED Fetus Data [...] Domestic Partner Domestic Partner Phone Father Name Dry Box Tender Status 10/26/19 21 1 CLOSED Fetus Data [...]
--- OUTSIDE RECORDS SUMMARY | 2024-11-30 00:45 | XMS_ITS | Clinical Summary ---
Author Organization [facility] Address [facility] [place] [address] Care Team Providers Care Agriculture Laborer Name Role Phone PadmaMable collins TANYA Primary [...] Scanned, Doc Med Group 09/29/2024 10:40 AM CONTINGENTS SUPERVISOR [facility] - [address], [address] [place] [id number] Mable Rouse APNP Schaefer, Jennifer, NP New Patient; Consult For Colonoscopy (Referral screening ) 09/29/2024 Orders Only [facility] - [address], [address] [place] [address] Paddy Bahena MD 09/29/2024 Travel 09/23/2024 Telephone [facility] [address] [address] Mable Rouse APNP Prior Authorization (Zepbound 5mg) 09/22/2024 11:00 AM CONTINGENTS SUPERVISOR Office Visit [facility] Internal [address] [address] Mable Rouse APNP Weight Check 09/22/2024 Travel [...] Sex Assigned at Female 09/22/2024 11:34 AM CONTINGENTS SUPERVISOR Legal Sex Female 7:01 PM CDT Gender Identity Female 10/08/2021 4:41 AM CONTINGENTS SUPERVISOR Sexual Orientation Straight 10/08/2021 4: 41 AM CONTINGENTS SUPERVISOR Last Filed Vital Signs Vital Sign Reading Time Taken Comments Blood Pressure 119/72 09/29/2024 10:51 AM CONTINGENTS SUPERVISOR Pulse 102 09/29/2024 10:51 AM CONTINGENTS SUPERVISOR Temperature 36.6 C (97.8 F) 09/29/2024 10:51 AM CONTINGENTS SUPERVISOR Respiratory Rate 18 09/29/2024 10:51 AM CONTINGENTS SUPERVISOR Oxygen Saturation 100% 09/29/2024 10:51 AM CONTINGENTS SUPERVISOR Inhaled Oxygen Concentration - - Weight 67.6 kg (149 lb) 09/29/2024 10:51 AM CONTINGENTS SUPERVISOR Height 152.4 cm (5') 09/29/2024 10:51 AM CONTINGENTS SUPERVISOR Body Mass Index 29.1 09/29/2024 10:51 AM CONTINGENTS SUPERVISOR Plan of Treatment Upcoming Encounters Date Type Department Care Team (Latest Contact Info) Description 03/28/2025 1:00 PM CDT Hospital Encounter [facility] [place] [address] Paddy Bahena MD 3 [facility] [address] [place] [address] 03/28/2025 1:00 PM CDT - 03/28/2025 1:30 PM CDT Surgery [facility] Endo/GI [place], [place] [address] Paddy Bahena MD [address] [address] COLONOSCOPY SCREENING Scheduled Procedures Name Priority Associated [...] Vaccine ( - 2023-2 5 season) 2024 Mammogram Screening 03/17/2025 03/17/2023, 03/06/2022, 11/13/2020 Annual Physical 05/19/2025 05/19/2024, 08/22/2021 DTaP, Tdap and Td Vaccines ( 2 - Td or Tdap) 04/24/2032 04/24/2022 Hepatitis C Completed 09/28/2020 PHQ-2 (Physician Voca) Completed 09/29/2024 Meningococcal B Vaccine Aged Out [...] TO GENOTYPE,LIPA LD Routine 09/28/2020 2:51 PM CONTINGENTS SUPERVISOR from Last 3 Months or Most Recently Relevant to Health Maintenance Results * MAMMOGRAM GENERIC (03/17/2023) Anatomical Region Laterality Modality Other 03/17/2023 us Doc Med Group Scanned SCANNING Final Resu lt * HEP C AB W RFX TO HCV RNA/PCR W RFX TO GENOTYPE,LIPA LD (09/28/2020 2:51 PM CONTINGENTS SUPERVISOR) HEPATITIS C AB NON-REACTI VE NON-REACTI VE [facility] SIGNAL TO CUTOFF 0.01 <1.00 [facility] Comment: HCV antibody was non-reactive. There is no laboratory evidence of HCV infection. In most cases, no further action is required. However, if recent HCV exposure is suspected, a test for HCV RNA (test code 11651) is suggested. For additional information, please refer to http://education.[employer]/faq/XJQ011 (This link is being provided for informational/ educational purposes only.) 09/28/2020 2:51 PM CONTINGENTS SUPERVISOR 09/28/2020 2:55 PM CONTINGENTS SUPERVISOR Mable [facility] Final Resul t [facility] [address] [place] [address] from Last 3 Months or Most Recently Relevant to Health Maintenance Insurance Care Teams Agriculture Laborer Relationship Specialty Start Date End Date Mable Rouse APNP [address] [place] [id number] PCP - General NURSE PRACTITIONER 09/28/20
--- OUTSIDE RECORDS SUMMARY | 2024-11-30 00:45 | XMS_ITS | Clinical Summary ---
Author Organization [facility] Address [address] Ibarra: Epic Prelude ADT ZONIA RED [address] Care Team Providers Care Rehabilitation Program Coordinator Name Role Phone Unavailable Primary Care Provider [...] days. 2 mL 2 10/10/2024 3:15 PM ADVANCED MANUFACTURING TECHNICIAN 4 Active sodium, potassium and magnesium sulfates (SUPREP) 17.5-3.13-1.6 gram Recon Soln Take 177 mLs by mouth every 12 (twelve) hours per GI instructions 354 mL 10/02/2024 12:57 PM ADVANCED MANUFACTURING TECHNICIAN 5 Active Encounters Date Type Department Care [...] SMEAR 1999 CERVICAL CANCER SCREENING 2008 HPV/Cotest (30-65) 2008 PAP SMEAR 2008 BREAST CANCER SCREENING 2018 COLORECTAL SCREENING 2023 Colorectal Cancer Screening 2023 FIT-DNA Q 3 years 2023 FIT/FOBT Q 1 year 2023 Flex Sig/CT Colonography Q 5 years 2023 INFLUENZA VACCINE (#1) 2024 HPV VACCINES Aged Out No longer eligi ble based on patient's age to complete this topic Insurance [employer]
--- OUTSIDE RECORDS SUMMARY | 2024-11-30 00:45 | XMS_ITS | Clinical Summary ---
Author Organization [facility] Address [address] [place] [address] Care Team Providers Care Security Risk Analyst Name Role Phone Unknown, Notinfile Primary Care [...] on file Legal Sex Female 3:50 AM WATCH ELECTRICIAN Gender Identity Not on file Sexual Orientation [...] ANTHEM PREFERRED WORKERS COMPENSATION GENERIC Care Teams Security Risk Analyst Relationship Specialty Start Date End Date Unknown, Notinfile PCP - General 01/07/22
--- OUTSIDE RECORDS SUMMARY | 2024-11-30 00:45 | XMS_ITS | Referral Summary ---
Author Organization [facility] Address [address] [place] [address] Care Team Providers Care Flight Test Supervisor Name Role Phone Unknown, Notinfile Primary Care [...] on file Legal Sex Female 3:50 AM NEON GLASS BLOWER Gender Identity Not on file Sexual Orientation [...] ANTHEM PREFERRED WORKERS COMPENSATION GENERIC Care Teams Flight Test Supervisor Relationship Specialty Start Date End Date Unknown, Notinfile PCP - General 01/07/22
--- NOTE | 2024-11-30 06:57 | P.OP_ITS ---
Procedure Note - Detailed Date of Procedure 11/30/24 Pre-op Diagnosis Breast Ptosis, Skin Laxity Post-op Diagnosis Same Procedure Performed Bilateral mastopexy, bra roll excision, suction lipectomy back Surgeon Kee Oneal MD Anesthesia General Findings Inverted T Superior Pedicle Lipoaspirate: 1,700 cc Description of Procedure She is here today for the above. Previously and again today the risks, benefits, alternatives were discussed in extensive detail. I wanted her to be very realistic about the risks involved as well as expectations. We discussed aftercare and what to monitor for. Discussed risks unique to her given her history. Made sure answered all of her questions to her satisfaction today and consent was obtained. They were marked in the preoperative holding area with their verification. The patient was taken to the operating room. Anesthesia was provided by anesthesiology. Posterior Placed prone on the operating room table with care taken to protect from injury. Prepped and draped in a standard sterile fashion. A surgical time-out was taken. Stab incisions were made and tumescent solution was infiltrated. Once adequate time was allowed for hemostasis a 5mm basket and 4mm darius cannula were utilized to complete suction lipectomy based on S.A.F.E. technique in multiple planes and passes. Suction lipectomy continued to result based on pre-operative planning, intra-operative observation, and rolling pinch test which were in full agreement. A 10 blade was used to make the upper incision and dissection was continued inferior elevating what we necessary for closure. This was closed with 3 point suture with 2-0 PDS followed 2-0 PDO strattafix, 3-0 stratafix ,running subcuticular 4-0 Monocryl, and tissue glue. Laterally shaheen were placed for turning. Anterior Patient was then placed supine with care taken to protect from injury. She was prepped and draped in a standard sterile fashion. Eleven blade was utilized to make a stab incision and infiltrated with low volume tumescent solution. The breast was tailor tacked into place. I tailor tacked the breast into position. Placed her in a sitting position. Verified the nipple-areolar location based on preoperative planning as well as intraoperative observations and measurements in full agreement. This was limited by previous incisions and I set the top of the NAC at the superior most aspect of previous NAC. A 5mm basket and 4mm darius cannula were utilized to complete suction lipectomy laterally based on S.A.F.E. technique in multiple planes and passes. Suction lipectomy continued to result based on pre-operative planning, intra- operative observation, and rolling pinch test which were in full agreement. I de-epithelialized the pedicle and the remainder of the incisions were made. I elevated medial and lateral tissue flaps for planned closure. IMF secured with 2-0 PDS 3 point sutures. I closed along the IMF with 2-0 PDO strattafix. Along the vertical with 2-0 PDS. I closed around the areola with 3-0 strata fix. 3-0 Monocryl along the vertical. 3-0 Stratafix along the IMF. I finally closed everything with running subcuticular 4-0 Monocryl and tissue glue. Fluffs and surgical bra were placed. All instrument and sponge counts were correct at the end of the case. Estimated Blood Loss 40 Drains No Packing No Pathology None sent Complications No immediate complications Condition Stable Disposition PACU
--- NOTE | 2024-11-30 06:57 | WPDHPUPDATE1 ---
History and Physical Update Update Date/Time: 11/30/24 06:57 History and Physical has been reviewed, including an updated exam of the patient. There are NO changes in the patient's condition. Risks, benefits, and alternatives have been discussed and questions answered. Patient agrees to proceed with procedure.
--- NOTE | 2024-11-30 07:41 | P.PNAN_ITS ---
Anes - Initial Pre Proc Eval Procedure: Operation Date: 11/30/24 08:30 Proposed Procedures p Bilateral Breast Mastopexy - Kee Oneal MD s Full Back Liposuction with Bra Roll Excision - Kee Oneal MD Date/Time: 11/30/24 07:41 Surgeon: Kee Oneal MD Pre Op Diagnosis: Breast Ptosis, Skin Laxity Patient Data Age: 44 Gender: F Height: 1.52 m Weight: 65 kg Allergies Allergy/AdvReac Type Severity Reaction Status Date / Time No Known Allergies Allergy Verified 11/17/24 17:11 Home Medications ?Medication ?Instructions ?Recorded ?Confirmed ?Type levothyroxine 100 mcg tablet 100 mcg PO DAILY #90 tabs 09/04/20 11/17/24 Rx valacyclovir 500 mg tablet 500 mg PO DAILY #90 tabs 09/04/20 11/17/24 Rx (Valtrex) phentermine 37.5 mg tablet 37.5 mg PO DAILY 11/27/21 11/17/24 History bupropion HCl 150 mg 24 hr tablet, 150 mg PO QAM 07/23/23 11/17/24 History extended release trazodone 50 mg tablet 50 mg PO QHS PRN anxiety 07/23/23 11/17/24 History prednisone 20 mg tablet 40 mg (2 x 20 mg) PO DAILY 5 days 11/10/24 11/17/24 Rx #10 tabs duloxetine 30 mg capsule,delayed 60 mg PO BID 11/17/24 11/17/24 History release fluticasone propionate 50 1 - 2 spray intranasal BID PRN 11/17/24 11/17/24 History mcg/actuation nasal nasal congestion spray,suspension (Flonase Allergy Relief) methylphenidate HCl 36 mg 36 mg PO DAILY 11/17/24 11/17/24 History tablet,extended release 24 hr varenicline tartrate 1 mg tablet 1 mg PO BID 11/17/24 11/17/24 History Laboratory Tests 11/30/24 07:30 Cotinine Pending Patient hx anesthesia problems: none Family hx anesthesia problems: none Results Review: All pre-operative results and documents have been reviewed as part of the pre- operative evaluation. [facility] Past Medical History Medical History Anemia Anxiety Depression Surgical History Surgical History Hx of breast reduction, elective H/O: hysterectomy H/O abdominoplasty History of tubal ligation History of tonsillectomy Family History Family History Sibling Hypertension Depression Mother Family history of anemia Family history of kidney disease Family history of hyperthyroidism Patient's mother is , Onset Age: 72 Depression Grandparent Family history of Alzheimer's disease Family history of lung cancer, Onset Age: 72 Father Depression Other Diabetes mellitus Hypertension Depression Social History Social History Smoking packs per day: 0.5 Smoking cigarettes per day: 10.0 Years smoked: 20 Smoking pack-years: 10.00 Smoking status: Former smoker Tobacco type: cigarettes Smoking end date: 09/01/24 Alcohol intake: current Alcohol use details: WEEKENDS Substance use: never Substance use type: does not use Last use: 09/01/2024 Lack of Transportation: No Lack of Food: Never True Current Housing: I Have Housing Concerned About Future Housing: No Difficulty Paying Gas/Electric Bills: No Difficulty Paying for Meds: No Currently Unemployed: No Education: Associate Degree Difficulty w/ Childcare or Family Care: No Living arrangements: other Additional living arrangements comments: SIG OTHER Spiritual care concerns: No Anes - Eval Final PreProcedure Day of Procedure 11/30/24 07:41 Patient weight: overweight Heart: regular rate and rhythm Lungs: clear to auscultation Airway: Mallampati scale class II Neurological: alert and oriented Last oral intake: >/= 8 hours ASA classification: II Emergent: no Anesthetic plan: proceed Anesthesia type and monitoring: general ETT and standard monitoring Results Review: All pre-operative results and documents have been reviewed as part of the pre- operative evaluation. Informed Consent: The patient's anesthetic plan and its attendant risks and benefits were discussed with the patient/family/POA. Questions were solicited and answers provided to the satisfaction of the patient/family/POA.
[2024-11-30 07:51] LABS: Urine Cotinine NEGATIVE
[2024-11-30] MEDS: TRANEXAMIC ACID 1,000MG/ISO100 1,000 MG/100 ML BAG 200 MG IVPB (08:02)
[2024-11-30] MEDS: LACTATED RINGERS 1,000 ML 30 ML IV CONT ×2 (08:02→13:08)
[2024-11-30] MEDS: LACTATED RINGERS IRRIG 1,000 ML, LIDOCAINE 1% LOCAL INJ 50 ML, EPINEPHrine HCL INJ 1 MG... INFILTRATE (08:34)
[2024-11-30] MEDS: ceFAZolin 2 GM/D5W 50 ML 2 GM/50 ML BAG IVPB (08:52)
[2024-11-30] MEDS: LACTATED RINGERS 500 ML 30 ML IV CONT (13:08)
[2024-11-30] MEDS: fentaNYL CITRATE INJ (*CRX) 100 MCG/2 ML VIAL 25 MCG IV PUSH ×4 (13:40→13:57)
[2024-11-30] MEDS: oxyCODONE HCL (*CRX) 5 MG TAB IR PO (14:23)
== END 2024-11-30 15:29 | disposition home or self-care (01) ==
PROVIDERS: PCP Registered Nurse; Visit Provider Surgery Plastic and Reconstructive Surgery
PROC: (CPT 19316; principal; 2024-11-30 08:30)
PROC: (CPT 15877; 2024-11-30 08:30)
DX: Z41.1 Encounter for cosmetic surgery (principal); N64.81 Ptosis of breast; L57.4 Cutis laxa senilis; D64.9 Anemia, unspecified; F41.9 Anxiety disorder, unspecified; E07.9 Disorder of thyroid, unspecified; F32.A Depression, unspecified; Z79.52 Long term (current) use of systemic steroids; Z98.890 Other specified postprocedural states; Z98.51 Tubal ligation status; Z87.891 Personal history of nicotine dependence; Z80.1 Family history of malignant neoplasm of trachea, bronchus and lung
CPT/HCPCS: 19316; 15839; 15877; 80307; A9270; J0171; J0690; J1100; J1171; J2003; J2004; J2250; J2371; J2405; J2704; J3010; J7120

== ENCOUNTER 2025-06-17 12:24 | Outpatient (CLI) | payer BC, SELFPAY ==
--- OUTSIDE RECORDS SUMMARY | 2025-03-02 06:00 | XMS_ITS ---
Author Organization [facility] Address [address] [place] [address] Care Team Providers Care Supervisor Lead Refinery Name Role Phone Padma SON, Mable Primary Care Provider Rowena Duran Unavailable [phone] Nannette Nunes [phone] REASON FOR VISIT 1 month f/u Social History Sex Assigned At : Social History Observation Description Sex Assigned At Female Encounters Encounter Location Date Provider Diagnosis [facility] [address] [address] 03/02/2025 Nannette Arreaga Plan Of Treatment Next Appt Details Provider Name:Nannette Arreaga, 07/13/2025 11:00:00 AM, [facility], [address], Provider Name:Rowena choudhury, 07/13/2025 01:15:00 PM, [address] [place] [address], [phone], Provider Name:Nannette Arreaga, 08/10/2025 11:00:00 AM, [address] [place] [address], [phone], Provider Name:Nannette Arreaga, 09/07/2025 11:00:00 AM, [facility], [address], Progress Notes * KYLIE FUNG MDOB:1979 (45 yo F)Acc No.[id number]:03/02/2025 Patient: KYLIE SCOTT Provider: Christina ARREAGA LCSW :1980 A ge:44 Y S ex:Female Date:03/02/2025 Address:[address] [place], [place] [id number] Pcp:Mable Rouse ANIMAL DOCTOR Data: * Chief Complaints: * 1 month f/u Billing Information: * Procedure Codes: * Electronic signature of Nikki Arreaga LCSW on 06/17/2025 at 12:47 PM CDT Sign off status: Pending Signatures: No Ad Hoc Signature Added * Provider: Christina ARREAGA LCSW Date: 0 03/02/2025 Generated for Barber finley/Pat/Juan Manuel on: 1 12:47 PM CDT
--- NOTE | ~2025-06-17 | MMUS_ITS ---
EXAMINATION: US breast LT limited, MM diagnostic suzi BI w elvin HISTORY: Palpable abnormality TECHNIQUE: Diagnostic images of both breasts [were performed using full field digital mammography. 3-D tomosynthesis were also obtained and synthetic 2-D images were generated. CAD analysis was submitted and interpreted. High- resolution left breast ultrasound was performed.] ] COMPARISON: Mammogram from 03/24/2024, 03/17/2023 and 03/06/2022 BREAST PARENCHYMAL COMPOSITION: There are scattered areas of fibroglandular density. FINDINGS: MAMMOGRAPHIC FINDINGS: No suspicious calcifications or architectural distortion or masses in the right breast. Focal asymmetries in the lower inner quadrant of the left breast, middle and posterior depth, respectively. No convincing sonographic correlate. The findings are probably benign. ULTRASOUND: No suspicious sonographic abnormality in the area of concern in the lower inner quadrant of the left breast. IMPRESSION/RECOMMENDATION: 1. Probably benign findings in the left breast. A diagnostic left breast mammogram in a diagnostic left breast ultrasound in 6 months is recommended. 2. No evidence for malignancy in the right breast. BI-RADS 3-Probably benign-Short interval follow-up suggested. Reviewed, dictated and finalized at location Q. IMPRESSION/RECOMMENDATION: 1. Probably benign findings in the left breast. A diagnostic left breast mammog gustabo in a diagnostic left breast ultrasound in 6 months is recommended. 2. No evidence for malignancy in the right breast. BI-RADS 3-Probably benign-Short interval follow-up suggested. IMPRESSION/RECOMMENDATION: 1. Probably benign findings in the left breast. A diagnostic left breast mammog gustabo in a diagnostic left breast ultrasound in 6 months is recommended. 2. No evidence for malignancy in the right breast. BI-RADS 3-Probably benign-Short interval follow-up suggested.
--- OUTSIDE RECORDS SUMMARY | 2025-06-17 12:46 | XMS_ITS | Encounter Summary ---
Author Organization [facility] Address [facility] [place] [address] Care Team Providers Care Director Online Marketing Name Role Phone Mable Rouse Primary Care Provider Reason for Visit * Reason Onset Date Comments Orders 06/17/2025 Encounter Details Date Type Department Care Team (Late st Contact Info) Description 06/17/2025 Telephone [facility] [address] [place] [address] Mable Rouse APNP [address] [place] [address] Orders Social History Tobacco Use Types Packs/Day Years Used Date Smoking Tobacco: Every Day Cigarettes 0.3 23.1 Started: 10/02/2024 Passive Smoke Exposure: Current Smokeless Tobacco: Never Comments:Provider to addiction counselor . Alcohol Use Standard Drinks/Week Comments Yes 0 (1 standard drink = 0.6 oz pur e alcohol) On occasion AUDIT-C Answer Date Recorded Q1: How often do you have a drink containing alc ohol? Monthly or less 09/28/2020 Average Number of Drinks Not on file 021 Frequency of Binge Drinking Not on file 09/02 PHQ-2 Answer Date Recorded Patient Health Questionnaire-2 Score 0 05/11/2025 Comments No Sex and Gender Information Value Date Recorded Sex Assigned at Female 09/22/2024 11:34 AM SKOOG OPERATOR Legal Sex Female 7:01 PM CDT Gender Identity Female 10/08/2021 4:41 AM SKOOG OPERATOR Sexual Orientation Straight 10/08/2021 4: 41 AM SKOOG OPERATOR documented as of this encounter Progress Notes * Ela Kellie Dea - 06/17/2025 12:40 PM CDT [facility] called in stating they are needing order for patient to have Bilateral diagnostic mammogram. Patient was scheduled for today 06/17/25 but [facility] will have patient reschedule.Asking that order be faxed to them. Please advise. documented in this encounter Plan of Treatment Not on file documented as of this encounter Visit Diagnoses Not on filedocumented in this encounter Additional Health Concerns Assessment Noted Time PHQ-9 Depression Total Score: 8 06/27/20 22 11:14 AM CDT documented as of this encounter Care Teams Director Online Marketing Relationship Specialty Start Date End Date Mable Rouse APNP [address] [place] [address] PCP - General NURSE PRACTITIONER 09/28/20 documented as of this encounter
--- OUTSIDE RECORDS SUMMARY | 2025-06-17 12:46 | XMS_ITS | Data Portability ---
Author Organization [facility] [place] Address [address] [place] [address] Care Team Providers Care Physician Coding Specialist Name Role Phone PUNEET MAYNARD Primary Care Provider [phone] Assessment Encounter Date Assessment Date Assessment LastModified [...] . Lab CBC w/ auto diff 2021 022 [facility] (Lab), [address], [place], [address], 2 05:39:25 CMP, serum or plasma 2021 [facility] (Lab), [address], [place], [address], 05:39:26 lipid panel, blood 2021 022 [facility] (Lab), [address], [place], [address], 2 05:39:25 TSH, serum or plasma 2021 022 [facility] (Lab), [address], [place], [address], 2 05:39:26 vitamin D, 25-hydro xy, total, serum 2021 022 [facility] (Lab), [address], [place], [address], 2 05:39:27 hormone panel, serum or plasma 2021 022 [facility] (Lab), [address], [place], [address], 2 05:39:27 Referral None recorded . Procedures None recorded . Surgeries None recorded . Imaging MAMMO, screenin g, bilatera l [address] [facility], [address], [place], [address], 4 16:03:05 MAMMO, screenin g, digital, bilatera l [address] [facility], [address], [address], [place], [address], 3 16:01:29 Medication Orders estradio l 1 mg tablet 2021 022 [facility] [address], [place], [address], 3 15:20:02 Patient TargetsNo targets recorded. Patient InstructionsNo instructions recorded. Reason for Referral None Reported. Results Created Date Observation Date Name Description Value Unit Range Abnormal Flag Note LastModifiedBy Organization Detail LastModifiedTime 01/31/20 22 01/30/2022 CBC W/DIF F WBC 7.6 10'3/ uL 3.6-10 .2 Not Available [facility] (Lab) [address], [place], [address], 01/31/2022 05:39:25 01/31/20 22 01/30/2022 CBC W/DIF F RBC 4.30 10'6/ uL (based on docume nted legal sex) 4.10-5 .30 Not Available [facility] (Lab) [address] [facility], [place], [address], 01/31/2022 05:39:25 01/31/20 22 01/30/2022 CBC W/DIF F HGB 13.1 g/dL (based on docume nted legal sex) 11.9-1 5.8 Not Available [facility] (Lab) [address] [facility], [place], [address], 01/31/2022 05:39:25 01/31/20 22 01/30/2022 CBC W/DIF F HCT 39.5 % (based on docume nted legal sex) 37.4-4 8.3 Not Available [facility] (Lab) [address], [place], [address], 01/31/2022 05:39:25 01/31/20 22 01/30/2022 CBC W/DIF F MCV 93.0 fL 82.0-9 9.0 Not Available [facility] (Lab) [address] [facility], [place], [address], 01/31/2022 05:39:25 01/31/20 22 01/30/2022 CBC W/DIF F MCH 31.0 pg 27.0-3 3.0 Not Available [facility] (Lab) [address] [facility], [place], [address], 01/31/2022 05:39:25 01/31/20 22 01/30/2022 CBC W/DIF F MCHC 33.0 g/dL 32.0-3 6.0 Not Available [facility] (Lab) [address] [facility], [place], [address], 01/31/2022 05:39:25 01/31/20 22 01/30/2022 CBC W/DIF F RDW 14.0 % 11.0-1 5.0 Not Available [facility] (Lab) [address] [facility], [place], [address], 01/31/2022 05:39:25 01/31/20 22 01/30/2022 CBC W/DIF F plt 319 10'3/ uL 150-45 0 Not Available [facility] (Lab) [address] [facility], [place], [address], 01/31/2022 05:39:25 01/31/20 22 01/30/2022 CBC W/DIF F MPV 9.8 fL 9.8-12 .7 Not Available [facility] (Lab) [address] [facility], [place], [address], 01/31/2022 05:39:25 01/31/20 22 01/30/2022 CBC W/DIF F NRBC's 0.00 % 0 Not Available [facility] (Lab) [address] [facility], [place], [address], 01/31/2022 05:39:25 01/31/20 22 01/30/2022 CBC W/DIF F absolute NRBCs 0.0 10'3/ uL 0 Not Available [facility] (Lab) [address] [facility], [place], [address], 01/31/2022 05:39:25 01/31/20 22 01/30/2022 CBC W/DIF F neutrophils 61.0 % 37.0-7 2.0 Not Available [facility] (Lab) [address] [facility], [place], [address], 01/31/2022 05:39:25 01/31/20 22 01/30/2022 CBC W/DIF F lymphocytes 30.0 % 16.0-4 8.0 Not Available [facility] (Lab) [address] [facility], [place], [address], 01/31/2022 05:39:25 01/31/20 22 01/30/2022 CBC W/DIF F monocytes 7.0 % 4.0-14 .0 Not Available [facility] (Lab) [address] [facility], [place], [address], 01/31/2022 05:39:25 01/31/20 22 01/30/2022 CBC W/DIF F eosinophils 2.0 % 0.0-9. 0 Not Available [facility] (Lab) [address] [facility], [place], [address], 01/31/2022 05:39:25 01/31/20 22 01/30/2022 CBC W/DIF F basophils 0.0 % 0.0-2. 0 Not Available [facility] (Lab) [address] [facility], [place], [address], 01/31/2022 05:39:25 01/31/20 22 01/30/2022 CBC W/DIF F immature granulocytes 0.0 % no define d refere nce range Not Available [facility] (Lab) [address] [facility], [place], [address], 01/31/2022 05:39:25 01/31/20 22 01/30/2022 CBC W/DIF F absolute neutrophils 4.7 10'3/ uL 1.1-6. 0 Not Available [facility] (Lab) [address] [facility], [place], [address], 01/31/2022 05:39:25 01/31/20 22 01/30/2022 CBC W/DIF F absolute lymphocytes 2.3 10'3/ uL 0.7-3. 4 Not Available [facility] (Lab) [address] [place], [address], 01/31/2022 05:39:25 01/31/20 22 01/30/2022 CBC W/DIF F absolute monocytes 0.5 10'3/ uL 0.3-1. 0 Not Available [facility] (Lab) [address] [facility], [place], [address], 01/31/2022 05:39:25 01/31/20 22 01/30/2022 CBC W/DIF F absolute eosinophils 0.1 10'3/ uL 0.0-0. 6 Not Available [facility] (Lab) [address] [facility], [place], [address], 01/31/2022 05:39:25 01/31/20 22 01/30/2022 CBC W/DIF F absolute basophils 0.0 10'3/ uL 0.0-0. 1 Not Available [facility] (Lab) [address] [facility], [place], [address], 01/31/2022 05:39:25 01/31/20 22 01/30/2022 CBC W/DIF [...] [facility] (Lab) [address] [facility], [place], [address], 01/31/2022 05:39:25 01/31/20 22 01/30/2022 LIPID PANEL ,AMA (LDL- CALC) total cholesterol 227 mg/dL 0-199 high Not Available [facility] (Lab) [address] [facility], [place], [address], 01/31/2022 05:39:25 01/31/20 22 01/30/2022 LIPID PANEL ,AMA (LDL- CALC) triglyceride s 138 mg/dL 0.00-1 50.00 NCEP Refer ence Value s for Trigl yceri ganga: Apple l: <150 mg/dL Borde rline High: 150 - 199 mg/dL High: 200 - 499 mg/dL Very High: >/= 500 mg/dL Not Available [facility] (Lab) [address] [facility], [place], [address], 01/31/2022 05:39:25 01/31/20 22 01/30/2022 LIPID PANEL ,AMA (LDL- CALC) HDL cholesterol 64 mg/dL >40 Not Available [facility] (Lab) [address] [facility], [place], [address], 01/31/2022 05:39:25 01/31/20 22 01/30/2022 LIPID PANEL [...] [facility] (Lab) [address] [place], [address], 01/31/2022 05:39:25 01/31/20 22 01/30/2022 LIPID PANEL ,AMA (LDL- CALC) non-HDL cholesterol 163 mg/dL no refere nce range A reaso nable goal for non-H DL jessica stero l is one that is 30 mg/dL highe r than the LDL jessica stero l goal. Not Available [facility] (Lab) [address] [place], [address], 01/31/2022 05:39:25 01/31/20 22 01/30/2022 LIPID PANEL ,AMA (LDL- CALC) chol/HDL ratio 3.5 . 0.0-5. 0 Not Available [facility] (Lab) [address] [facility], [place], [address], 01/31/2022 05:39:25 01/31/20 22 01/30/2022 CMP(C OMPRE HENSI VE METAB OLIC PANEL ) sodium 140 mmol/ L 133-14 6 Not Available [facility] (Lab) [address] [facility], [place], [address], 01/31/2022 05:39:26 01/31/20 22 01/30/2022 CMP(C OMPRE HENSI VE METAB OLIC PANEL ) potassium 4.1 mmol/ L 3.5-5. 1 Not Available [facility] (Lab) [address] [facility], [place], [address], 01/31/2022 05:39:26 01/31/20 22 01/30/2022 CMP(C OMPRE HENSI VE METAB OLIC PANEL ) chloride 104 mmol/ L 98-107 Not Available [facility] (Lab) [address] [facility], [place], [address], 01/31/2022 05:39:26 01/31/20 22 01/30/2022 CMP(C OMPRE HENSI VE METAB OLIC PANEL ) carbon dioxide 25 mmol/ L 21-31 Not Available [facility] (Lab) [address] [facility], [place], [address], 01/31/2022 05:39:26 01/31/20 22 01/30/2022 CMP(C OMPRE HENSI VE METAB OLIC PANEL ) anion gap 11 mmol/ L 4-13 Not Available [facility] (Lab) [address] [facility], [place], [address], 01/31/2022 05:39:26 01/31/20 22 01/30/2022 CMP(C OMPRE HENSI VE METAB OLIC PANEL ) blood urea nitrogen 16 mg/dL 7-25 Not Available [facility] (Lab) [address] [facility], [place], [address], 01/31/2022 05:39:26 01/31/20 22 01/30/2022 CMP(C OMPRE HENSI VE METAB OLIC PANEL ) creatinine 0.89 mg/dL 0.60-1 .30 Not Available [facility] (Lab) [address], [place], [address], 01/31/2022 05:39:26 01/31/20 22 01/30/2022 CMP(C OMPRE HENSI VE METAB OLIC PANEL ) egfrcr (CKD-epi 2020) 82 mL/mi n/1.7 3_m2 >=60 Not Available [facility] (Lab) [address], [place], [address], 01/31/2022 05:39:26 01/31/20 22 01/30/2022 CMP(C OMPRE HENSI VE METAB OLIC PANEL ) calcium 9.2 mg/dL 8.3-10 .5 Not Available [facility] (Lab) [address], [place], [address], 01/31/2022 05:39:26 01/31/20 22 01/30/2022 CMP(C OMPRE HENSI VE METAB OLIC PANEL ) glucose 64 mg/dL 70-100 low Not Available [facility] (Lab) [address] [facility], [place], [address], 01/31/2022 05:39:26 01/31/20 22 01/30/2022 CMP(C OMPRE HENSI VE METAB OLIC PANEL ) protein, total 6.7 g/dL 6.4-8. 3 Not Available [facility] (Lab) [address] [facility], [place], [address], 01/31/2022 05:39:26 01/31/20 22 01/30/2022 CMP(C OMPRE HENSI VE METAB OLIC PANEL ) albumin 4.2 g/dL 3.5-5. 0 Not Available [facility] (Lab) [address] [place] [place], [address], 01/31/2022 05:39:26 01/31/20 22 01/30/2022 CMP(C OMPRE HENSI VE METAB OLIC PANEL ) ALT 12 units /L 9-43 Not Available [facility] (Lab) [address] [place], [address], 01/31/2022 05:39:26 01/31/20 22 01/30/2022 CMP(C OMPRE HENSI VE METAB OLIC PANEL ) alkaline phosphatase 54 units /L 34-104 Not Available [facility] (Lab) [address] [facility], [place], [address], 01/31/2022 05:39:26 01/31/20 22 01/30/2022 CMP(C OMPRE HENSI VE METAB OLIC PANEL ) AST 11 units /L 13-39 low Not Available [facility] (Lab) [address] [facility], [place], [address], 01/31/2022 05:39:26 01/31/20 22 01/30/2022 CMP(C OMPRE HENSI VE METAB OLIC PANEL ) bilirubin, total 0.7 mg/dL 0.2-1. 2 Not Available [facility] (Lab) [address] [place], [address], 01/31/2022 05:39:26 01/31/20 22 01/30/2022 TSH, REFLE X FREE T4 TSH 4.32 uIU/m L 0.30-5 .33 Not Available [facility] (Lab) [address] [place], [address], 01/31/2022 05:39:26 01/31/20 22 01/30/2022 VITAM IN D, 25-OH (TOTA L D2/D3 ) vitamin D, 25-hydroxy, total 63.4 NG/mL 30-80 NOTE: Defic iency : <20 ng/mL Insuf ficie ncy: 20-29 ng/mL Optim um Level : 30-80 ng/mL Possi ble Toxic ity: >80 ng/mL Most patie nts with toxic ity have level s >150 ng/mL . Not Available [facility] (Lab) [address] [place], [address], 01/31/2022 05:39:26 01/31/20 22 01/30/2022 FSH, LH, ESTRA DIOL estradiol 105.0 pg/mL This assay was perfo rmed using [employer] ratio n reage nts and test kits. Value s obtai janeth with other assay metho ds or kits canno t be used inter [facility] . Femal e Estra diol Range s: Folli cular phase 12.4- 233 pg/mL Ovula tion phase 41.0- 398 pg/mL Lutea l phase 22.3- 341 pg/mL Postm enopa usal< 5-138 pg/mL Healt hy Pregn ant Women 1st Trime ster1 54-32 43 pg/mL 2nd Trime ster1 561-2 1280 pg/mL 3rd Trime ster8 525-> 15912 pg/mL Not Available [facility] (Lab) [address] [place], [address], 01/31/2022 05:39:27 01/31/20 22 01/30/2022 FSH, LH, ESTRA DIOL FSH 8.0 mIU/m L This assay was perfo rmed using [employer] reage nts and test kits. Value s obtai janeth with other assay metho ds or kits canno t be used inter [facility] . Femal es Folli cular : 3.5-1 2.5 mIU/m L Ovula tion: 4.7-2 1.5 mIU/m L Lutea l: 1.7-7 .7 mIU/m L Postm enopa use: 25.8- 134.8 mIU/m L Not Available [facility] (Lab) [address] [facility], [place], [address], 01/31/2022 05:39:27 01/31/20 22 01/30/2022 FSH, LH, ESTRA DIOL LH 12.0 mIU/m L This assay was perfo rmed using [employer] reage nts and test kits. Value s obtai janeth with other assay metho ds or kits canno t be used inter [facility] . Femal es Mid-F ollic ular: 2.4-1 2.6 mIU/m L Mid-C ycle: 14.0- 95.6 mIU/m L Mid-L uteal : 1.0-1 1.4 mIU/m L Postm enopa use: 7.7-5 8.5 mIU/m L Not Available [facility] (Lab) [address] [facility], [place], [address], 01/31/2022 05:39:27 01/31/20 22 01/30/2022 IMAGE GUIDE D PAP AND HPV REGAR DLESS image guided Pap, HPV regardless of Pap result SEE RESULT S BELOW CASE REPOR T: Cytol ogy Gynec ologi jaqui Repor t Case: [id number] Aut[address] immanuel ramirez Provi nathaniel: Geraldine Maurice MD Colle cted: 01/30 1738 Order ing Locat ion: [place] [facility] Recei patsy: 01/31 0148 First Scree n: Molly Ying CT Speci men: Danyelle blanca Pap - Image d, Vagin a STATE MENT OF ADEQU ACY: Satis facto ry for evalu ation FINAL DIAGN OSIS: Negat johnny for Intra epith elial Lesio n or Hoa small (NIL) . Elect demetrice naidu d by Molly Ying CT on 022 at 8:16 AM ----- [...] [facility] (Lab) [address], [place], [address], 02/04/2022 09:19:08 03/06/20 22 03/06/2022 MAMMO danyelle, bilat eral No observ ation record ed. [id number], [place], [address], 03/21/2022 11:14:09 03/17/20 23 03/17/2023 MAMMO , scree blanca, bilat eral No observ ation record ed. [address], [place], [address], 06/30/2023 14:28:46 03/24/2003/24/2024 MAMMO , scree blanca, bilat eral No observ ation record ed. [facility] [address], [place], [address], 03/28/2024 10:56:54 Result Notes None recorded. Problems Name Problem SNOMED Code Status Onset Date Resolution Date Notes Provider Name and Address Organization Details Recorded Time Speciali zed medical examinat ion Completed 201004/11/2021 Routine gynecolog ical examinati on;Practi ce ID: 0001 Puneet Medley [facility] 11:19:24 Pregnanc y test negative [id number] Completed 201304/11/2021 Negative Test;Prac almas ID: 0001 Puneet Medley [facility] 11:19:15 Screenin g for malignan t neoplasm of cervix Completed 201304/11/2021 Pap Smear;Pra ctice ID: 0001 Puneet Medley [facility] 11:19:17 Adult health examinat ion Completed 201304/11/2021 Routine general medical examinati on at a health care facility; Practice ID: 0001 Puneet Medley [facility] 11:19:10 Irregula r periods [id number] Completed 201304/11/2021 Irregular menstrual cycle;Pra ctice ID: 0001 Puneet Medley [facility] 11:19:13 Atypical squamous cells of undeterm ined signific ance on cervical Papanico laou smear [id number] Completed 12/10/ 2014 04/11/2021 Papanicol aou smear of cervix with atypical squamous cells of undetermi janeth significa nce (ASC-US); Recorded Elsewhere : No Locati on: [facility] So urce: EHR Chron ic: N Practic e ID: [id number] Bill able Time: 11:00:00 AM Puneet santa [facility] 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 11:19:22 Acute vaginiti s [id number] Completed 201504/11/2021 Acute vaginitis ;Practice ID: 0001 Puneet Medley [facility] 11:19:08 Screenin g for malignan t neoplasm of rectum Completed 201804/11/2021 Encounter for screening for malignant neoplasm of rectum;Pr actice ID: 0001 Puneet Medley [facility] 11:19:[address] Concept Completed 201804/11/2021 Encntr for general adult medical exam w/o abnormal findings; Recorded Elsewhere : No Locati on: [facility] So urce: EHR Chron ic: N Practic e ID: 0001 Bill able Time: 03:00:00 PM Puneet santa [facility] 11:19:20 Syphilis test finding [id number] Completed 201904/11/2021 Encntr screen for infection s w sexl mode of transmiss ;Practice ID: 0001 Puneet Medley [facility] 11:19:26 Problem Notes None recorded. Procedures Surgical History Date Name Laterality Status Provider Name and Address Organization Details Recorded Time 03/17/20 Date of Last Mammogram completed Latasha Hinojosa [facility] 12/17/2023 12:08:15 06/01/20 22 Date of Last Pap Smear completed Tyra Berrios [facility] 11/27/2022 15:21:49 07/17/20 21 TOTAL HYSTERECTOMY, LAPAROSCOPIC, WITH BILATERAL SALPINGECTOMY (SURG) completed Alexa Thomas [facility] 07/18/2021 10:19:51 11/14/19 21 completed [facility] 10/26/2020 14:36:14 09/01/19 12 abdominoplasty completed [facility] 10/26/2020 14:38:46 09/01/19 08 delivery completed [facility] 10/26/2020 14:38:36 09/01/19 00 Breast reduction completed [facility] 10/26/2020 14:38:17 09/01/18 88 Tonsillectomy completed [facility] 10/26/2020 14:38:07 Tubal Ligation completed [facility] 10/26/2020 14:37:57 Imaging Results None recorded. Procedure Notes None recorded. Medical Equipment None [...] ed Elsewher e: No Locat ion: [facility] odify By: anali menchaca DateTime : 10/18/19 01:34:25 PM Not Available Not Available Not [...] ed Elsewher e: Yes Loca tion: [facility] odify By: camila purdy DateTime : 08/02/20 16 08:15:00 AM Not Available Not Available Not Available Flagyl 500 mg tablet take 1 tablet by oral route every 12 hours 10/25 completed Prescrib ed Elsewher e: No [facility]at [facility] odify By: camila purdy DateTime : 10/25/19 17 02:14:07 PM Not [...] Prescrib ed Elsewher e: Yes Loca tion: Carlee froy [facility] odify By: lorraine menchaca DateTime : 09/08/19 [...] Prescrib ed Elsewher e: No [facility]at [facility] By: camila purdy DateTime : 08/07/20 [...] Yes Loca tion: [facility] odify By: [email or web address] trick En counter DateTime : 07/27/20 14 09:00:00 AM Not Available Not Available Not [...] Body mass index (BMI) Body weight Systolic And Diastolic Provider Name and Address Organization Details Last Updated DateTime 11/27/2022 154.94 cm 31.4 kg/m2 46071.33 g 115/80 mm[Hg] Tyra Berrios [facility] 11/27/2022 15:19:32 Date Recorded Body height Body mass index (BMI) Body weight Systolic And Diastolic Provider Name and Address Organization Details Last Updated DateTime 12/17/2023 154.94 cm 32.1 kg/m2 37885.7 g 127/85 mm[Hg] Latasha Hinojosa [facility] 12/17/2023 12:04:41 Date Recorded Body height Body mass index (BMI) Body weight Systolic And Diastolic Provider Name and Address Organization Details Last Updated DateTime 01/30/2022 152.4 cm 28.7 kg/m2 46718.08 g 122/85 mm[Hg] Rhiannon Soni [facility] 01/30/2022 17:41:09 Date Recorded Body height Body mass index (BMI) Body weight Systolic And Diastolic Provider Name and Address Organization Details Last Updated DateTime 07/25/2021 152.4 cm 32.2 kg/m2 47512.74 g 113/77 mm[Hg] Rhiannon Soni [facility] 07/25/2021 13:59:44 Social History Question Answer Notes LastModified by Organizat ion Details LastModified Time Tobacco Smoking Status Current Some Day Smoker Tyra santa, [facility] 11/27/2022 15:19:47 How Many Years Have You Consumed Alcohol? 35 Information not available 12/17/2023 Are You Blind Or Do You Have Difficulty Seeing? No Information n ot available 04/11/2021 What Is Your Level Of Caffeine Consumption? Moderate Information not available 11/27/2022 In The 14 Days Before Symptom Onset, Have You Had Close Contact With A Laboratory-confirm ed COVID-19 While That Case Was Ill? No Information n ot available 11/27/2022 In The 14 Days Before [...] Of Diet Are You Following? REGULAR Information n ot available 04/11/2021 What Is The Highest Grade Or Level Of School You Have Completed Or The Highest Degree You Have Received? [id number] Information not available 11/27/2022 Are There Any Guns Present In Your [...] PPD Information not available 12/17/2023 Do You Use Sunscreen Routinely? No Information not available 11/27/2022 How Many Years Have You Smoked Tobacco? 31 Information not available 12/17/2023 Have You Used IV Drugs? No Information not available 11/27/2022 Sex: Unknown Functional Status Question Answer Note LastModified by Organizat ion Details LastModified Time Do you use any illicit or recreational drugs? No Information not available 11/27/2022 What is your level of alcohol consumption? Occasional Information not available 11/27/2022 Are you able to walk independently without assistance or assistive devices? 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 Occasional Information not available 04/11/2021 Mental Status Question Answer Note LastModified by Organization D etails LastModified Time Do you feel stressed (tense, restless, nervous, or anxious, or unable to sleep at night)? [id number] Information not available 11/27/2022 Family History Relationship Description Onset Age of [...] Diagnosis SNOMED-CT Code Diagnosis ICD10 Code Diagnosis IMO Codes Diagnosis Note [id number] Hood Maurice MD [place] [address],[place] [address] 10/26/2020 14:21:05 10/26/2020 15:01:18 Gynecologic examination [id number] Z01.419 This patient is here for her annual exam. A thorough history was taken. A physical exam was performed. Age appropriat e routine health screening was ordered, performed, and discussed. Recommende d testing was ordered. She was asked to follow up in one year. She will be informed of any test results. Mammogram - [ Mammogram is scheduled] Pap - today [id number] Mary Chappell [facility] [address],[place] [address] 04/11/2021 11:28:56 04/11/2021 14:06:37 Pain in pelvis [id number] R10.2 Update TVUS to be updated.Le tter [...] answered to patient satisfacti on. 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 All staff wore face coverings during this encounter, as well as provided additional cleaning and sanitizing of all surfaces, including countertop s, pens, chairs, door handles, light switches, etc, prior to and following the patient s visit. [id number] Hood Maurice MD [place] [address],[place] [address] 05/12/2021 09:21:40 05/12/2021 10:35:05 Menorrhagia [id number] N92.0 Pain in pelvis [id number] R10.2 this patient is a 40-year-ol d female who has severe menorrhagi a and severe pelvic pain. We discussed medical treatment in detail. Patient needs definitive surgical treatment. She has profound pain that severely affects her quality of life and activities of daily living in her [facility] ips. We have agreed to perform total laparoscop ic hysterecto my and bilateral salpingect carisa. We talked about the procedure in detail. We talked about the risks and benefits of all the other options are available to her for these problems. We spent more than 25 minutes face-to-fa ce discussing these very complex topics and agreed to perform surgery, major surgery. [id number] Hood Maurice MD [place] [address],[facility] [place] [address] 07/11/2021 13:52:19 07/11/2021 14:43:11 Menorrhagia [id number] N92.0 this patient is a 41-year-ol d female with severe menorrhagi a and dysmenorrh ea. We have agreed to perform total laparoscop ic hysterecto my bilateral salpingect carisa. She understand s the risks, benefits, and alternativ es. She has completed the informed consent process and is ready to proceed. Dysmenorrhea [id number] N 94.6 [id number] Hood Maurice MD [place] [address],[place] [address] 07/20/2021 11:45:26 07/20/2021 11:46:02 [id number] Hood Maurice MD [place] [address],[place] [address] 07/25/2021 13:47:56 07/25/2021 14:24:46 Postoperative care [id number] Z48.89 This patient is a 41-year-ol d [...] bleeding. She will follow up as needed. [id number] Hood Maurice MD [place] [address],[place] [address] 01/30/2022 17:30:43 01/30/2022 18:27:35 Gynecologic examination [id number] Z01.419 This patient is here for her annual exam. A thorough history was taken. A physical exam was performed. Age appropriat e routine health screening was ordered, performed, and discussed. Recommende d testing was ordered. She was asked to follow up in one year. She will be informed of any test results. Mammogram - [ Mammogram is scheduled] Pap - today Menopausal symptom [id number] N95.1 [id number] Jordyn Zane [facility] [address],[place] [address] 11/27/2022 14:44:45 11/27/2022 17:46:26 Screening for malignant neoplasm of breast [id number] Z12.39 Gynecologi c examination [id number] Z01.419 Suggested Calcium with Vitamin D 1200-1500m g daily. Patient advised to get an annual flu shot in the fall and she could obtain at [facility] or [facility] care clinic. Also to obtain TDap vaccinatio [...] in 1 year or sooner if needed [id number] Mary Chappell , [facility] [address],[place] [address] 12/17/2023 11:59:55 12/17/2023 21:01:42 Gynecologic examination [id number] Z01.419 Suggested Calcium with Vitamin D 1200-1500m g daily. Patient advised to get an annual flu shot in the fall and she could obtain at [facility] or [facility] care clinic. Also to obtain TDap vaccinatio [...] na Routine Labs PCP Screening mammography 24 [id number] Z12.31 Health Concerns Section Related Observation LastModified by Organization Detai ls LastModified Time None Recorded Concern Status LastModified by Organization Details LastModified Time None Recorded Advance Directives Directive None Recorded Payers Insurance Date Sequence Insurance Name Policy Number Policy Castillo Covered Member ID Castillo Member ID Guarantor Name 12/16/2023 1 [place]: (POS) [id number] 1 Eliane Conley [id number] Eliane Conley 10/26/2020 1 *SELF PAY* Va ernie Conley 12/17/2023 2 [place]: [facility] Eliane Conley [id number] Eliane Conley 12/17/2023 1 [facility] [id number] Eliane Conley [id number] Eliane Conley Notes Date Note Type Note Provider Name and Address Organization Details Recorded Time 07/25/20 21 text/htm l This patient is a 41-year-old female who [...] needed. Hood Maurice MD [address], [place], [address], [facility] 07/25/2021 14:23:43 01/31/20 22 text/htm l Annual GYNReported by PatientHistoryFor history, patient reportsno gynecologic complaints.Genitourinary symptomsFor urinary symptoms, patient reportsno hematuriaandno incontinence. For vulva, patient reportsno genital lesion. For vagina, patient reportsnormal vaginal discharge. For menstrual cycle, (status post hysterectomy).Breast symptomsFor breast, patient reportsno breast pain,no breast lump, andno nipple discharge.Endocrine symptomsFor menopausal symptoms, patient reportshot flashesandinsomnia due to night sweats. For sexual complaints, patient reportsno sexual complaintsandno pain during intercourse.Psychological symptomsFor psychological symptoms, patient reportsdepressionandanxiety (treated by psych).Preventative measuresFor preventive measures, patient reportsencourage self breast examinationandencourage regular exercise. Hood Maurice MD [address], [place], [address], [facility] 01/30/2022 18:21:49 11/28/19 23 text/htm l Annual GYNReported by PatientHistoryFor history, patient reportsno gynecologic complaints.Genitourinary symptomsFor vulva, patient reportsno genital lesion. For vagina, patient reportsnormal vaginal discharge.Breast symptomsFor breast, patient reportsno breast pain,no breast lump, andno nipple discharge.ContraceptionFor current contraception, (hyst).Endocrine symptomsFor sexual complaints, patient reportsno sexual complaints,no pain during intercourse, andnormal libido. For menopausal symptoms, patient reportsno menopausal symptomsandnormal vaginal lubrication.Psychological symptomsFor psychological symptoms, patient reportsno depression,no anxiety, andno pmdd.Preventative measuresFor preventive measures, patient reportsencourage self breast examination,encourage regular exercise,encourage no tobacco use, andencourage regular mammograms starting age 40. LUCIA Bey [address], [place], [address], [facility] 11/27/2022 17:18:57 12/17/19 24 text/htm l Annual [employer] Post-MenopausalReported by PatientGenitourinary symptomsFor menopausal symptoms, patient reportsno menopausal symptomsandnormal vaginal lubrication. For vaginal bleeding, patient reportshistory of menopause having occurredandno history of post menopausal bleeding. For urinary symptoms, patient reportsno hematuria,no incontinence,no nocturia, andno urinary frequency. For vulva, patient reportsno genital lesionandno vulvar atrophy. For vagina, patient reportsnormal vaginal dischargeandno vaginal atrophy.Breast symptomsFor breast, patient reportsno breast lump,no nipple discharge, andno breast pain.Psychological symptomsFor sexual complaints, patient reportsno sexual complaints. For psychological symptoms, patient reportsno depressionandno anxiety.Preventative measuresFor preventive measures, patient reportsencourage regular mammograms starting age 40,encourage self breast examination,encourage regular exercise,encourage no tobacco use,needs to schedule mammogram, andhistory of recent colonoscopy (pcp). Mary Chappell, [facility]- [address], [place], [address], [facility] 12/17/2023 17:41:45 OBGyn Episode Ob Episode Information Episode Created Date Number of Fetuses Patient Bloodtype Patient rh Status Prepregnancy Weight lbs Domestic Partner Domestic Partner Phone Father Name Director Of Exhibits Status 10/26/19 21 2 CLOSED Fetus Data [...] Domestic Partner Domestic Partner Phone Father Name Director Of Exhibits Status 10/26/19 21 1 CLOSED Fetus Data [...] Domestic Partner Domestic Partner Phone Father Name Director Of Exhibits Status 10/26/19 21 1 CLOSED Fetus Data [...] Domestic Partner Domestic Partner Phone Father Name Director Of Exhibits Status 10/26/19 21 1 CLOSED Fetus Data [...] Domestic Partner Domestic Partner Phone Father Name Director Of Exhibits Status 10/26/19 21 1 CLOSED Fetus Data [...]
--- OUTSIDE RECORDS SUMMARY | 2025-06-17 12:46 | XMS_ITS | Clinical Summary ---
Author Organization [facility] Address [facility] [place] [address] Care Team Providers Care Director Economic Name Role Phone Mable Rouse Primary Care Provider Allergies No known active allergies Medications DULoxetine (CYMBALTA) 60 MG capsule 1 capsule (60 mg total) every evening. 022 Active levothyroxine (SYNTHROID) 100 MCG tabletIndications :Acquired hypothyroidism Take 1 tablet (100 mcg total) by mouth every morning. 90 tablet 3 025 Active traZODone (DESYREL) 100 MG tablet 1 tablet (100 mg total). 025 Active Lumateperone Tosylate (CAPLYTA) 10.5 MG Cap Active valACYclovir (VALTREX) 500 MG tabletIndications :HSV-1 infection Take 1 tablet by mouth once daily 90 tablet 025 Active atomoxetine (STRATTERA) 40 MG capsule 1 capsule (40 mg total) daily. 025 Active WEGOVY 1.7 mg/dose injection (PEN)Indications: Overweight with body mass index (BMI) of 29 to 29.9 in adult Inject 0.75 mL (1.7 mg) by subcutaneous injection every 7 days. 3 mL 1 025 Active semaglutide-weigh t management (WEGOVY) 1.7 mg/dose injection (PEN)Indications: Weight Loss Inject 1.7 mg into the skin once a week. 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 Acquired hypothyroidism 04/01/2019 Resolved Problems Problem Noted Date Diagnosed Date Resolved Date Screening for colon cancer 09/29/2024 0 10/04/2024 Right otitis media 03/19/2024 Herpes zoster without complication 04/01/2019 09/28/2020 Encounters Date Type Department Care Team Description 06/17/2025 Telephone [facility] Internal [address] [address] Mable Rouse APNP Orders 05/12/2025 Results Follow-Up [address] [address] Mable Rouse APNP THYROXINE, FREE (FT4), THYROID STIM HORMONE TSH, URINALYSIS, Additional followed-up results: 4 05/11/2025 7:00 AM CDT Office Visit [address] [address] Mable Rouse APNP Physical 05/11/2025 Travel 04/07/[address] [address] Mable Rouse APNP Prior Authorization (Wegovy 1 mg ) 03/28/2025 1:26 PM CDT Anesthesia Event [facility] [address] Pancho Mart DO 03/28/2025 1:00 PM CDT - 03/28/2025 1:30 PM CDT Surgery [facility] [address] Paddy Bahena MD COLONOSCOPY SCREENING- NEGATIVE 03/28/2025 12:27 PM CDT - 03/28/2025 2:22 PM CDT Hospital Encounter [facility] [place] [address] Paddy Bahena MD Discharge Disposition: Home or Self Care (Routine Discharge) 03/28/2025 Travel from Last 3 Months Immunizations Immunization Administration Dates Next Due Tdap (Adacel) 04/24/2022 Family History Medical History Relation Comments Mental Health Daughter Anxiety Father Cancer Father Prostate cancer that was surgically removed Depression Father Cancer Maternal Grandfather Cancer Maternal Grandmother lung Diabetes Maternal Grandmother Depression Mother Kidney Disease Mother Miscarriages / Stillbirths Mother Vision loss Mother Anxiety Sister 1 Depression Sister 1 Hypertension Sister 1 Kidney Disease Sister 1 Vision loss Sister 1 Hypertension Sister 2 Diabetes Son 1 Heart Disease Son 1 Hypertension Son 1 Diabetes Son 2 Relation Status Comments Daughter Father Maternal Grandfather Alive Maternal Grandmother Mother Sister 1 Sister 2 Alive Son 1 Son 2 Alive Social History Tobacco Use Types Packs/Day Years Used Date Smoking Tobacco: Every Day Cigarettes 0.3 23.1 Started: 10/02/2024 Passive Smoke Exposure: Current Smokeless Tobacco: Never Tobacco Cessation:Ready to Q uit: No; Counseling Given: Yes Comments:Provider to agency legal counsel. Alcohol Use Standard Drinks/Week Comments Yes 0 [...] Sex Assigned at Female 09/22/2024 11:34 AM [employer] Legal Sex Female 7:01 PM CDT Gender Identity Female 10/08/2021 4:41 AM [employer] Sexual Orientation Straight 10/08/2021 4: 41 AM [employer] Last Filed Vital Signs Vital Sign Reading Time Taken Comments Blood Pressure 108/70 05/11/2025 7:13 AM CDT Pulse 97 05/11/2025 7:13 AM CDT Temperature 36.8 C (98.2 F) 05/11/2025 7:13 AM CDT Respiratory Rate 16 05/11/2025 7:13 AM CDT Oxygen Saturation 97% 05/11/2025 7:13 AM CDT Inhaled Oxygen Concentration - - Weight 70.1 kg (154 lb 9.6 oz) 05/11/2025 7:13 A M CDT Height 152.4 cm (5') 05/11/2025 7:13 AM CDT Body Mass Index 30.19 05/11/2025 7:13 AM CDT Plan of Treatment Health Maintenance Due Date Last Done Comments Hepatitis B Vaccines (1 of 3 - 19+ 3-dose series) 1997 Pneumococcal Vaccine: Pediatrics (0 to 5 Years) and At-Risk Patients (6 to 49 Years) (1 of 2 - PCV) 1997 Mammogram Screening 03/17/2025 03/17/2023, 03/06/2022, 11/13/2020 COVID-19 Vaccine (1 - 2023-2 5 season) 2025 Influenza Adult (#1) 2025 Annual Physical 05/11/2026 05/11/2025, 05/19/2024, 08/22/2021 DTaP, Tdap and Td Vaccines ( 2 - Td or Tdap) 04/24/2032 04/24/2022 Colorectal Cancer Screening Colonoscopy (10 Years) 03/28/2035 03/28/2025 Hepatitis C Completed 09/28/2020 PHQ-2 (Physician [place]) Completed 05/11/2025 Hepatitis A Vaccines Aged Out No long er eligible based on patient's age to complete this topic Meningococcal B Vaccine Aged Out No l onger eligible based on patient's age to complete this topic Meningococcal Vaccine Aged Out No elyssa shelton eligible based on patient's age to complete this topic RSV Immunizations Under 20 Months Aged Out No longer eligible b ased on patient's age to complete this topic Procedures Procedure Name Priority Date/Time Associated Diagnosis Comments CBC W/DIFF AUTOMATED Routine 05/11/2025 8:19 AM CDT Routine medical exam Class 1 obesity due to excess calories without serious comorbidity with body mass index (BMI) of 30.0 to 30.9 in adult LIPID PANEL Routine 05/11/2025 8:19 AM CDT Routine medical exam Acquired hypothyroidism Class 1 obesity due to excess calories without serious comorbidity with body mass index (BMI) of 30.0 to 30.9 in adult URIC ACID BLOOD Routine 05/11/2025 8:19 AM CDT Routine medical exam Class 1 obesity due to excess calories without serious comorbidity with body mass index (BMI) of 30.0 to 30.9 in adult COMPREHENSIVE METABOLIC PANEL Routine 05/11/2025 8:19 AM CDT Routine medical exam Class 1 obesity due to excess calories without serious comorbidity with body mass index (BMI) of 30.0 to 30.9 in adult URINALYSIS, AUTO, COMPLETE Routine 05/11/2025 8:19 AM CDT Routine medical exam Class 1 obesity due to excess calories without serious comorbidity with body mass index (BMI) of 30.0 to 30.9 in adult THYROID STIM HORMONE TSH Routine 05/11/2025 8:19 AM CDT Routine medical exam Acquired hypothyroidism Class 1 obesity due to excess calories without serious comorbidity with body mass index (BMI) of 30.0 to 30.9 in adult THYROXINE, FREE (FT4) Routine 05/11/2025 8:19 AM CDT Routine medical exam Acquired hypothyroidism Class 1 obesity due to excess calories without serious comorbidity with body mass index (BMI) of 30.0 to 30.9 in adult COLLECTION VENOUS BLOOD VENIPUNCTURE Routine 05/11/2025 8:19 AM CDT Routine medical exam Acquired hypothyroidism Class 1 obesity due to excess calories without serious comorbidity with body mass index (BMI) of 30.0 to 30.9 in adult COLONOSCOPY FLX DX W/COLLJ SPEC WHEN PFRMD 03/28/2025 1:24 PM CDT Screening for colon cancer COLONOSCOPY Routine 03/28/2025 1:02 PM CDT MAMMOGRAM GENERIC (SCAN ORDER) 03/17/2023 HEP C AB W RFX TO HCV RNA/PCR W RFX TO GENOTYPE,LIPA LD Routine 09/28/2020 2:51 PM [employer] from Last 3 Months or Most Recently Relevant to Health Maintenance Results * (ABNORMAL) URINALYSIS (05/11/2025 8:19 AM CDT) COLOR (U) YELLOW 05/11/2025 4:42 PM CDT [facility] TRANSPARENCY TURBID(A) CLEAR 05/11/2025 4:42 PM CDT [facility] SPECIFIC GRAVITY (U) >1.030 1.003 - 1.040 05/11/2025 4:42 PM CDT [facility] U PH 5.5 5.0 - 9.0 05/11/2025 4:42 PM CDT [facility] PROTEIN RANDOM (U) NEGATIVE NEGATIVE 05/11/2025 4:42 PM CDT [facility] GLUCOSE (U) NEGATIVE NEGATIVE 05/11/2025 4:42 PM CDT [facility] KETONES MG/DL (U) NEGATIVE NEGATIVE 05/11/2025 4:42 PM CDT [facility] BILIRUBIN (U) NEGATIVE NEGATIVE 05/11/2025 4:42 PM CDT [facility] BLOOD (U) NEGATIVE NEGATIVE 05/11/2025 4:42 PM T [facility] UROBILINOGEN 0.2 0.0 - 2.0 EU/DL 05/11/2025 4:42 PM CDT [facility] NITRITES NEGATIVE NEGATIVE 05/11/2025 4:42 PM CDT [facility] LEUKOCYTES (U) NEGATIVE NEGATIVE 05/11/2025 4:42 PM CDT [facility] RBC/HPF 0-3 0 - 3 /HPF 05/11/2025 4:42 PM CDT [facility] WBC/HPF 0-3 0 - 3 /HPF 05/11/2025 4:42 PM CDT [facility] EPI/HPF 0-3 /HPF 05/11/2025 4:42 PM CDT [facility] BACTERIA (U) TRACE(A) NONE SEEN 05/11/2025 4:42 PM CDT [facility] AMORPHOUS SEDIMENT PRESENT 05/11/2025 4:42 PM CDT [facility] URINE SPECIMEN OBTAINED BY CLEAN CATCH PROCEDURE / Unknown 05/11/2025 8:19 AM CDT us [facility] URINE ORDERABLES [facility] [place] [address] [place] [address], [place] [phone] * (ABNORMAL) COMPREHENSIVE METABOLIC PANEL (05/11/2025 8:19 AM CDT) SODIUM S/P/B 141 136 - 145 MMOL/L 05/11/2025 4:50 PM CDT [facility] POTASSIUM S/P/B 4.9 3.5 - 5.1 MMOL/L 05/11/2025 4:50 PM CDT [facility] CHLORIDE S/P/B 104 98 - 107 MMOL/L 05/11/2025 4:50 PM CDT [facility] CO2 30.0 21 - 32 MMOL/L 05/11/2025 4:50 PM CDT [facility] GLUCOSE 93 70 - 99 MG/DL 05/11/2025 4:50 PM CDT [facility] BUN 16 7 - 18 MG/DL 05/11/2025 4:50 PM CDT [facility] CREATININE S/P/B 0.83 0.55 - 1.02 MG/DL 05/11/2025 4:50 PM CDT [facility] CALCIUM S/P/B 8.9 8.4 - 10.5 MG/DL 05/11/2025 4:50 PM [facility] BILIRUBIN TOTAL S/P/B 0.7 0.2 - 1.0 MG/DL 05/11/2025 4:50 PM [facility] ALKALINE PHOSPHATASE S/P/B 72 39 - 100 U/L 05/11/2025 4:50 PM T [facility] AST 15 15 - 37 U/L 05/11/2025 4:50 PM CDT [facility] ALT 23 14 - 59 U/L 05/11/2025 4:50 PM [facility] TOTAL PROTEIN S/P/B 7.1 6.4 - 8.2 G/DL 05/11/2025 4:50 [facility] ALBUMIN S/P/B 3.9 3.4 - 5.0 G/DL 05/11/2025 4:50 PM [facility] ANION GAP 7.0 5 - 15 MMOL/L 05/11/2025 4:50 PM [facility] Comment:REFERENCE RANGE NOT ESTABLISHED OSMOLALITY (CALC) 293 MOSM/KG 025 4:50 [facility] Comment:REFERENCE RANGE NOT ESTABLISHED GFR ESTIMATE 88(L) >90 ML/MIN/1. 73 M2 05/11/2025 4:50 PM T [facility] GFR NOTES GFR REFERENCE S: 05/11/2025 4:50 [facility] Comment: THE ESTIMATED GFR IS CALCULATED USING THE 2020 CKD-EPI EQUATION. THE FOLLOWING CATEGORIES FOR GRADING RENAL FUNCTION ARE RECOMMENDED BY THE INTERNATIONAL SOCIETY OF NEPHROLOGY (KDIGO 2012 CLINICAL PRACTICE GUIDELINE). G1,NORMAL OR HIGH: >89 ml/min/1.73 m2 G2,MILDLY DECREASED: 60-89 ml/min/1.73 m2 G3A,MILDLY TO MODERATELY DECREASED: 45-59 ml/min/1.73 m2 G3B,MODERATELY TO SEVERELY DECREASED: 30-44 ml/min/1.73 m2 G4,SEVERELY DECREASED: 15-29 ml/min/1.73 m2 G5,KIDNEY FAILURE: <15 ml/min/1.73 m2 05/11/2025 8:19 AM CDT [facility] Final Resul t [facility] [address] [place] [address], * (ABNORMAL) LIPID PANEL (05/11/2025 8:19 AM CDT) CHOLESTEROL 227(H) <200 MG/DL 05/11/2025 4:50 PM CDT [facility] TRIGLYCERIDES 161(H) <150 MG/DL 05/11/2025 4:50 PM CDT [facility] HDL 47 >40 MG/DL 05/11/2025 4:50 PM CDT [facility] LDL-C 148(H) <100 MG/DL 05/11/2025 4:50 PM CDT [facility] VLDL CALCULATION 32(H) 5 - 28 MG/DL 05/11/2025 4:50 PM CDT [facility] CHOL/HDL RATIO 4.8(H) 0.0 - 4.0 05/11/2025 4:50 PM T [facility] LDL/HDL 3.1(H) 0.41 - 2.13 05/11/2025 4:50 PM CDT [facility] NON HDL CHOLESTEROL 180(H) <140 MG/DL 05/11/2025 4:50 PM CDT [facility] 05/11/2025 8:19 AM CDT [facility] Final Resul t Performing Organization Address City/[facility]/ZIP Co de Phone Number [facility] [address] [place] [address], * (ABNORMAL) CBC W/DIFF AUTOMATED (05/11/2025 8:19 AM CDT) [facility] WBC 7.09 4.00 - 10.80 x10'3/uL 05/11/2025 3:25 PM CDT [facility] RBC 4.63 4.10 - 5.40 x10'6/uL 05/11/2025 3:25 PM CDT [facility] HGB 14.1 12.0 - 16.0 G/DL 05/11/2025 3:25 PM CDT [facility] HCT 41.8 36.0 - 47.0 % 05/11/2025 3:25 PM CDT [facility] MCV 90.3 78.0 - 100.0 FL 05/11/2025 3:25 PM CDT [facility] MCH 30.5 27.0 - 31.0 PG 05/11/2025 3:25 PM CDT [facility] MCHC 33.7 33.0 - 36.0 G/DL 05/11/2025 3:25 PM CDT [facility] RDW 13.2 11.5 - 14.5 % 05/11/2025 3:25 PM CDT [facility] PLT 358(H) 150 - 350 x10'3/uL 05/11/2025 3:25 PM CDT [facility] MPV 9.6 7.4 - 10.4 FL 05/11/2025 3:25 PM CDT [facility] DIFFERENTIAL TYPE AUTOMATED DIFFERENTIAL 05/11/2025 3:25 PM CDT -[facility] NEUTROPHILS % 69.5 % 05/11/2025 3:25 PM CDT [facility] LYMPHOCYTES % 22.1 % 05/11/2025 3:25 PM CDT [facility] MONOCYTES % 6.2 % 05/11/2025 3:25 PM CDT [facility] EOSINOPHILS % 1.7 % 05/11/2025 3:25 PM CDT -[facility] BASOPHILS % 0.4 % 05/11/2025 3:25 PM CDT [facility] IMMATURE GRANS % 0.1 % 05/11/2025 3:25 PM CDT -[facility] ABS. NEUTROPHILS 4.92 1.60 - 8.30 x10'3/uL 05/11/2025 3:25 PM CDT [facility] ABS. LYMPHOCYTES 1.57 0.80 - 4.70 x10'3/uL 05/11/2025 3:25 PM CDT [facility] ABS. MONOCYTES 0.44 0.00 - 1.50 x10'3/uL 05/11/2025 3:25 PM CDT -[facility] ABS. EOSINOPHILS 0.12 0.00 - 0.40 x10'3/uL 05/11/2025 3:25 PM CDT [facility] ABS. BASOPHILS 0.03 0.00 - 0.20 x10'3/uL 05/11/2025 3:25 PM CDT [facility] ABS. IMMATURE GRANULOCYTES 0.01 0.00 - 0.03 x10'3/uL 05/11/2025 3:25 PM CDT [facility] 05/11/2025 8:19 AM CDT us [facility] Final Resul t [facility] [place] [address] [place] [address], * THYROXINE, FREE (FT4) (05/11/2025 8:19 AM CDT) FREE T4 1.44 0.76 - 1.46 NG/DL 05/11/2025 4:50 PM CDT [facility] 05/11/2025 8:19 AM CDT [facility] Final Resul t Performing Organization Address City/[facility]/ZIP Co de Phone Number [address] [address], [place] [phone] * THYROID STIM HORMONE TSH (05/11/2025 8:19 AM CDT) TSH 1.228 0.358 - 3.740 uIU/ML 05/11/2025 4:50 PM CDT [facility] 05/11/2025 8:19 AM CDT [facility] Final Resul t Performing Organization Address [facility] Co de Phone Number [address] [address], [place] [phone] * URIC ACID BLOOD (05/11/2025 8:19 AM CDT) URIC ACID 4.2 2.6 - 6.0 MG/DL 05/11/2025 5:04 PM CDT [facility] 05/11/2025 8:19 AM CDT [facility] Final Resul t Performing Organization Address City/[facility] Co de Phone Number [address] [address], [place] [phone] * MAMMOGRAM GENERIC (03/17/2023) Anatomical Region Laterality Modality Other 03/17/2023 [facility] Scanned SCANNING Final Resu lt * HEP C AB W RFX TO HCV RNA/PCR W RFX TO GENOTYPE,LIPA LD (09/28/2020 2:51 PM [employer]) HEPATITIS C AB NON-REACTI VE NON-REACTI VE [facility] SIGNAL TO CUTOFF 0.01 <1.00 [facility] Comment: HCV antibody was non-reactive. There is no laboratory evidence of HCV infection. In most cases, no further action is required. However, if recent HCV exposure is suspected, a test for HCV RNA (test code 36578) is suggested. For additional information, please refer to http://education.[employer]/faq/REV983 (This link is being provided for informational/ educational purposes only.) 09/28/2020 2:51 PM [employer] 09/28/2020 2:55 PM [employer] [facility] Final Resul t [facility] [address] [place] [address] from Last 3 Months or Most Recently Relevant to Health Maintenance Insurance [facility] Care Teams Director Economic Relationship Specialty Start Date End Date Mable Rouse APNP [address] [place] [phone] PCP - General NURSE PRACTITIONER 09/28/20
--- OUTSIDE RECORDS SUMMARY | 2025-06-17 12:47 | XMS_ITS | Clinical Summary ---
Author Organization [facility] Address [address] [place] [address] Care Team Providers Care Activity Therapist Name Role Phone Unknown, Notinfile Primary Care [...] on file Legal Sex Female 3:50 AM RESP THER Gender Identity Not on file Sexual Orientation [...] 7:39 PM CDT Height 157.5 cm (5' 2) 01/07/2022 7:39 PM CDT Body Mass Index 26.85 01/07/2022 7:39 PM CDT Plan of Treatment Not on file Insurance ANTHEM PREFERRED ANTHEM PREFERRED ANTHEM PREFERRED WORK[employer] COMPENSATION GENERIC Care Teams Activity Therapist Relationship Specialty Start Date End Date Unknown, Notinfile PCP - General 01/07/22
--- OUTSIDE RECORDS SUMMARY | 2025-06-17 12:47 | XMS_ITS | Patient Health Record ---
Author Organization [facility] As [employer] Address [address] [facility] [address] [place] [address] Care Team Providers Care Supervisor Braiding Name Role Phone Padma SON, Mable Primary Care Provider Unavaila Rowena Russell Unavailable [phone] Bacilio Nunes Unavailable [phone] Morgan Castorena Unavailable [phone] Allergies No Known Allergies Results Component Value Reference Range Flag Notes Stimulants Reviewed date:10/15/2024 10:09:19 AM Interpretation: Performing Lab:, [facility], [address] [place] [address], Director - [id number] Notes/Report: An exception occurred while processing this report and so it has incomplete data. Please contact [employer] for assistance. Phentermine NEGATIVE 100.0 ng/mL Not Medicate d Consistent Methylphenidate 248.3 50.0 ng/mL POSITIVE Medicated Consistent Methamphetamine NEGATIVE 100.0 ng/mL Not Medi cated Consistent Amphetamine NEGATIVE 100.0 ng/mL Not Medicate d Consistent PDF Report CE_OUT_RAW_CO MMON_SRC_ORU UDT Reviewed date:10/13/2024 02:43:34 PM Interpretation: Performing Lab: Notes/Report: THC NEG 0 - 50 ng/ml Cocaine NEG 0 - 300 ng/ml Amphetamine NEG 0 - 1000 ng/ml Buprenorphine (BUP) NEG 0 - 10 ng/ml Secobarbital (Bar) NEG 0 - 300 ng/ml Oxazepam (BZO) NEG 0 - 300 ng/ml 1-yanwlcfoba-8,5-bfktnjrh-6, 3-diph enylpyrrolidine (EDDP) NEG 0 - 300 ng/ml Methamphetamine (MET) NEG 0 - 1000 ng/ml Methylenedioxymethamphetamin e (MDMA) NEG 0 - 500 ng/ml Morphine (MOP 300/[id number]) NEG 0 - 300 ng/ml Methadone (MTD) NEG 0 - 300 ng/ml Phencyclidine (PCP) NEG 0 - 25 ng/ml Nortriptyline (TCA) NEG 0 - 1000 ng/ml Oxycodone NEG 0 - 300 ng/ml x NEG 0 - 300 ng/ml UDT Reviewed date:11/23/2024 02:10:12 PM Interpretation: Performing Lab: Notes/Report: THC N 0 - 50 ng/ml Cocaine N 0 - 300 ng/ml Amphetamine N 0 - 1000 ng/ml Buprenorphine (BUP) N 0 - 10 ng/ml Secobarbital (Bar) N 0 - 300 ng/ml Oxazepam (BZO) N 0 - 300 ng/ml 6-bvtjtbzxog-5,1-txhthvho-9, 3-diph enylpyrrolidine (EDDP) N 0 - 300 ng/ml Methamphetamine (MET) N 0 - 1000 ng/ml Methylenedioxymethamphetamin e (MDMA) N 0 - 500 ng/ml Morphine (MOP 300/[id number]) N 0 - 300 ng/ml Methadone (MTD) N 0 - 300 ng/ml Nortriptyline (TCA) N 0 - 1000 ng/ml Oxycodone N 0 - 300 ng/ml x N 0 - 300 ng/ml UDT Reviewed date:05/11/2025 04:51:19 PM Interpretation: Performing Lab: Notes/Report: THC n 0 - 50 ng/ml Cocaine n 0 - 300 ng/ml Amphetamine n 0 - 1000 ng/ml Buprenorphine (BUP) n 0 - 10 ng/ml Secobarbital (Bar) n 0 - 300 ng/ml Oxazepam (BZO) n 0 - 300 ng/ml 0-dydmiweqqz-6,0-vioqvyfp-4, 3-diph enylpyrrolidine (EDDP) n 0 - 300 ng/ml Methamphetamine (MET) n 0 - 1000 ng/ml Methylenedioxymethamphetamin e (MDMA) n 0 - 500 ng/ml Morphine (MOP 300/[id number]) n 0 - 300 ng/ml Methadone (MTD) n 0 - 300 ng/ml Phencyclidine (PCP) n 0 - 25 ng/ml Nortriptyline (TCA) n 0 - 1000 ng/ml Oxycodone n 0 - 300 ng/ml UDT Reviewed date:02/09/2025 04:35:25 PM Interpretation: Performing Lab: Notes/Report: THC n 0 - 50 ng/ml Cocaine n 0 - 300 ng/ml Amphetamine n 0 - 1000 ng/ml Buprenorphine (BUP) n 0 - 10 ng/ml Secobarbital (Bar) n 0 - 300 ng/ml Oxazepam (BZO) n 0 - 300 ng/ml 1-odtmufofaj-7,6-tfkcmddw-6, 3-diph enylpyrrolidine (EDDP) n 0 - 300 ng/ml Methamphetamine (MET) n 0 - 1000 ng/ml Methylenedioxymethamphetamin e (MDMA) n 0 - 500 ng/ml Morphine (MOP 300/[id number]) n 0 - 300 ng/ml Methadone (MTD) n 0 - 300 ng/ml Phencyclidine (PCP) n 0 - 25 ng/ml Nortriptyline (TCA) n 0 - 1000 ng/ml Oxycodone n 0 - 300 ng/ml x n 0 - 300 ng/ml Stimulants Reviewed date:11/26/2024 10:31:08 AM Interpretation: Performing Lab:[address] [place] [address], [address] [place] [address], Director - [id number] Notes/Report: An exception occurred while processing this report and so it has incomplete data. Please contact [employer] for assistance. Phentermine NEGATIVE 100.0 ng/mL Not Medicate d Consistent Methylphenidate 273.9 50.0 ng/mL POSITIVE Medicated Consistent Methamphetamine NEGATIVE 100.0 ng/mL Not Medi cated Consistent Amphetamine NEGATIVE 100.0 ng/mL Not Medicate d Consistent PDF Report CE_OUT_RAW_CO MMON_SRC_ORU UDT Reviewed date:07/14/2024 02:58:08 PM Interpretation: Performing Lab: Notes/Report: THC N 0 - 50 ng/ml Cocaine N 0 - 300 ng/ml Amphetamine N 0 - 1000 ng/ml Buprenorphine (BUP) N 0 - 10 ng/ml Secobarbital (Bar) N 0 - 300 ng/ml Oxazepam (BZO) N 0 - 300 ng/ml 7-xgyqqzedmt-3,8-hpurmdsf-4, 3-diph enylpyrrolidine (EDDP) N 0 - 300 ng/ml Methamphetamine (MET) N 0 - 1000 ng/ml Methylenedioxymethamphetamin e (MDMA) N 0 - 500 ng/ml Morphine (MOP 300/[id number]) N 0 - 300 ng/ml Methadone (MTD) N 0 - 300 ng/ml Phencyclidine (PCP) N 0 - 25 ng/ml Nortriptyline (TCA) N 0 - 1000 ng/ml Oxycodone N 0 - 300 ng/ml x N 0 - 300 ng/ml Reason For Referral No Information Medications Medication SIG (Take, Route, Frequency, Duration) Notes Start Date End Date Status Atomoxetine HCl 60 MG Capsule 1 capsule in the morning Orally Once a day; Duration: 30 days 06/15/2025 Active traZODone HCl 50 MG Tablet 1 tablet at bedtime Oral Once a day; Duration: 30 days 06/15/2025 Active DULoxetine HCl 60 MG Capsule Delayed Release Particles 1 cap Oral twice a day; Duration: 90 days 06/15/2025 Active Caplyta 21 MG Capsule 1 capsule Orally daily at bedtime; Duration: 30 days has co-pay card- note dose increase 06/15/2025 Active WEGOVY 0.5 MG/0.5 ML SUBCUTANEOUS PEN INJECTOR *Reorder from [employer] for eRx and Interaction Alerts* 01/14/2024 Active Levothyroxine Sodium 100 MCG Tablet Oral 01/14/2024 Active hydrOXYzine Pamoate 25 MG Capsule 1 capsule Orally three times a day As needed 01/27/2025 Not-Taking Social History Tobacco Use: Social History Observation Description Date Details (start date - stop date) Current Smoker NA - NA Sex Assigned At : Social History Observation Description Sex Assigned At Female Social History Miscellaneous: Social Info Question Answer Notes Advance Care Planning Are you your own decision-maker Yes Tobacco Use: Social Info Question Answer Notes Tobacco Control (Standard) How often do you smoke cigarettes? Every day How many cigarettes a day do you smoke? 6-10 Tobacco use: Current smoker Additional Details Category Social Info Options Details Migrated Social History Migrated Social History Alcohol Intake: None 10/24/2022,Tobacco Years: Current every day smoker 02/19/2022,Smoking Status: 18 09/10/2023 Section Notes: ETOH in evenings/weekends. I have [...] disorder, single episode, severe with psychotic features ([id number]) Major depressive disorder, single episode, severe with psychotic features (F32.3) Active confirmed Problem Severe recurrent major depression with psychotic features (68000903) Major depressive disorder, recurrent, severe with psychotic symptoms (F33.3) Active confirmed Stable, no concerns today. PHQ9= 6 Problem Generalized anxiety disorder (97361439) Generalized anxiety disorder (F41.1) Active confirmed Stable, no concerns today, well controlled Problem Posttraumatic stress disorder (45805961) Post-traumatic stress disorder, chronic (F43.12) Active confirmed Stable, needs to schedule counseling follow up with bacilio Problem Attention deficit hyperactivity disorder, combined type (14899710) Attention-defic it hyperactivity disorder, combined type (F90.2) 024 Active confirmed Struggling with maintaining focus and concentration which is impacting productivity at work and home settings. Problem Depression Screening (495760421) Encounter for screening for depression (Z13.31) Active confirmed Problem Cigarette smoker (62448786) Cigarette smoker (F17.210) Active confirmed Current daily smoker, on average about 5 cigarettes daily. Has been smoking since age 14. No history of quitting or attempt at quitting. Problem Feeling suicidal (195324213) Passive suicidal ideations (R45.851) Active confirmed Vital Signs Heart Rate 84 /min 06/15/2025 Height-cm 157.48 cm 06/15/2025 Blood pressure diastolic 78 mm Hg 06/15/2025 Weight-kg 68.04 kg 06/15/2025 Height 62.00 in 06/15/2025 Blood pressure systolic 113 mm Hg 06/15/2025 Weight 150 lbs 06/15/2025 BMI 27.43 kg/m2 06/15/2025 Encounters Encounter Location Date Provider Diagnosis [facility] [place] [id number] [facility] [address] [facility] [address] [place] [address] 07/07/2024 Bacilio Haro [place] [address] [facility] [address] [facility] [address] [place] [address] 07/07/2024 Rowena Goodrich [place] [address] [facility] [address] [facility] [address] [place] [address] 07/14/2024 Rowena Goodrich Major depressive disorder, recurrent, severe with psychotic symptoms F33.3 ; Generalized anxiety disorder F41.1 ; Attention-deficit hyperactivity disorder, combined type F90.2 and Post-traumatic stress disorder, chronic F43.12 [facility] [employer] [facility] [place] [id number] [facility] [address] [place] [address] 10/13/2024 Rowena Goodrich Major depressive disorder, recurrent, severe with psychotic symptoms F33.3 ; Generalized anxiety disorder F41.1 ; Attention-deficit hyperactivity disorder, combined type F90.2 ; Post-traumatic stress disorder, chronic F43.12 and Cigarette smoker F17.210 [facility] [employer] [facility] [address] [place] [address] 10/20/2024 Bacilio Haro Generalized anxiety disorder F41.1 ; Major depressive disorder, recurrent, severe with psychotic symptoms F33.3 ; Post-traumatic stress disorder, chronic F43.12 and Attention-deficit hyperactivity disorder, combined type F90.2 [facility] [place] [address] [facility] [address] [place] [address] 11/23/2024 Rowena Goodrich Encounter for screening for depression Z13.31 ; Major depressive disorder, recurrent, severe with psychotic symptoms F33.3 ; Generalized anxiety disorder F41.1 ; Attention-deficit hyperactivity disorder, combined type F90.2 ; Post-traumatic stress disorder, chronic F43.12 and Cigarette smoker F17.210 [facility] [employer] [facility] [address] [facility] [address] [place] [address] 01/05/2025 Rowena Goodrich Generalized anxiety disorder F41.1 ; Major depressive disorder, recurrent, severe with psychotic symptoms F33.3 ; Attention-deficit hyperactivity disorder, combined type F90.2 ; Post-traumatic stress disorder, chronic F43.12 and Encounter for screening for depression Z13.31 [facility] [address] [facility] [address] [place] [address] 01/05/2025 Bacilio Haro Major depressive disorder, single episode, severe with psychotic features F32.3 ; Attention-deficit hyperactivity disorder, combined type F90.2 ; Post-traumatic stress disorder, chronic F43.12 and Encounter for screening for depression Z13.31 [facility] [employer] [facility], [facility] [address] [address] 01/27/2025 Morgan Castorena Generalized anxiety disorder F41.1 ; Passive suicidal ideations R45.851 ; Major depressive disorder, recurrent, severe with psychotic symptoms F33.3 ; Attention-deficit hyperactivity disorder, combined type F90.2 ; Post-traumatic stress disorder, chronic F43.12 and Encounter for screening for depression Z13.31 [facility] [employer] [facility], [place] [address] [address] 01/31/2025 [facility] [employer] [facility] [address] [address] 01/31/2025 Bacilio Haro Major depressive disorder, recurrent, severe with psychotic symptoms F33.3 ; Post-traumatic stress disorder, chronic F43.12 ; Generalized anxiety disorder F41.1 ; Attention-deficit hyperactivity disorder, combined type F90.2 and Encounter for screening for depression Z13.31 [facility] [address] [address] 02/09/2025 Rowena Goodrich Major depressive disorder, recurrent, severe with psychotic symptoms F33.3 ; Post-traumatic stress disorder, chronic F43.12 ; Generalized anxiety disorder F41.1 ; Attention-deficit hyperactivity disorder, combined type F90.2 ; Nicotine use Z72.0 ; Encounter for screening for depression Z13.31 and Encounter for screening for cardiovascular disorders Z13.[address] [address] 02/16/2025 Rowena Kurilla Nicotine use Z72.0 ; Major depressive disorder, recurrent, severe with psychotic symptoms F33.3 ; Post-traumatic stress disorder, chronic F43.12 ; Generalized anxiety disorder F41.1 ; Encounter for screening for cardiovascular disorders Z13.6 ; Attention-deficit hyperactivity disorder, combined type F90.2 and Encounter for screening for depression Z13.[address] [address] 03/21/2025 Rowena Kurilla Nicotine use Z72.0 ; Major depressive disorder, recurrent, severe with psychotic symptoms F33.3 ; Post-traumatic stress disorder, chronic F43.12 ; Generalized anxiety disorder F41.1 and Attention-deficit hyperactivity disorder, combined type F90.[address] [address] 04/20/2025 Bacilio Haro Post-traumatic stress disorder, chronic F43.12 ; Major depressive disorder, recurrent, severe with psychotic symptoms F33.3 ; Attention-deficit hyperactivity disorder, combined type F90.2 and Generalized anxiety disorder F41.[address] [address] 04/20/2025 Rowena Kurilla Nicotine use Z72.0 ; Major depressive disorder, recurrent, severe with psychotic symptoms F33.3 ; Post-traumatic stress disorder, chronic F43.12 ; Generalized anxiety disorder F41.1 and Attention-deficit hyperactivity disorder, combined type F90.[address] [address] 05/11/2025 Bacilio Haro Major depressive disorder, recurrent, severe with psychotic symptoms F33.3 ; Generalized anxiety disorder F41.1 ; Attention-deficit hyperactivity disorder, combined type F90.2 and Post-traumatic stress disorder, chronic F43.[address] [address] 05/11/2025 Rowena Kurilla Nicotine use Z72.0 ; Major depressive disorder, recurrent, severe with psychotic symptoms F33.3 ; Post-traumatic stress disorder, chronic F43.12 ; Generalized anxiety disorder F41.1 and Attention-deficit hyperactivity disorder, combined type F90.2 [facility], [facility] [address] [place] [address] [place] [address] 06/15/2025 Bacilio Haro Major depressive disorder, recurrent, severe with psychotic symptoms F33.3 ; Attention-deficit hyperactivity disorder, combined type F90.2 ; Post-traumatic stress disorder, chronic F43.12 and Generalized anxiety disorder F41.1 [facility], [facility] [address] [place] [address] [place] [address] 06/15/2025 Rowena Kurilla Nicotine use Z72.0 ; Major depressive disorder, recurrent, severe with psychotic symptoms F33.3 ; Post-traumatic stress disorder, chronic F43.12 ; Generalized anxiety disorder F41.1 and Attention-deficit hyperactivity disorder, combined type F90.2 [facility], [facility] [address] [place] [address] [place] [address] 06/28/2024 Rowena Kurilla Attention-deficit hyperactivity disorder, combined type F90.2 [facility], [facility] [address] [place] [address] [place] [address] 11/25/2024 Rowena Kurilla Attention-deficit hyperactivity disorder, combined type F90.2 [facility], [facility] [address] [place] [address] [place] [address] 12/07/2024 Rowena Kurilla Attention-deficit hyperactivity disorder, combined type F90.2 [facility], [facility] [address] [place] [address] [place] [address] 02/04/2025 Rowena Kurilla [facility], [facility] [address] [place] [address] [place] [address] 06/23/2024 Rowena Kurilla [facility], [facility] [address] [place] [address] [place] [address] 09/03/2024 Rowena Kurilla Attention-deficit hyperactivity disorder, combined type F90.2 [facility], [facility] [address] [place] [address] [place] [address] 10/06/2024 Rowena Kurilla Attention-deficit hyperactivity disorder, combined type F90.2 [facility], [facility] [address] [place] [address] [place] [address] 11/09/2024 Rowena Kurilla [facility] [address] [place] [address] [place] [address] 11/16/2024 Rowena Goodrich Attention-deficit hyperactivity disorder, combined type F90.[address] [facility] [address] [place] [address] 01/13/2025 Rowena Goodrich Attention-deficit hyperactivity disorder, combined type F90.[address] [facility] [address] [place] [address] 01/18/2025 Rowena Goodrich Attention-deficit hyperactivity disorder, combined type F90.[address] [facility] [address] [place] [address] 01/25/2025 Morgan Clubb Attention-deficit hyperactivity disorder, combined type F90.[address] [facility] [address] [place] [address] 02/09/2025 Rowena Goodrich [address] [address] 02/16/2025 Rowena Goodrich Assessments Encounter Date Diagnosis (ICD Code) Assessment Notes Treatment Notes Treatment Clinical Notes Section Notes 06/28/2024 Attention-defic it hyperactivity disorder, combined type (ICD-10 - F90.2) 09/03/2024 Attention-defic it hyperactivity disorder, combined type (ICD-10 - F90.2) 10/20/2024 Major depressive disorder, recurrent, severe with psychotic symptoms (ICD-10 - F33.3) Occupational Stress and Promotion Pursuit - Assessment: 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 07/14/2024 Major depressive disorder, recurrent, severe with psychotic symptoms (ICD-10 - F33.3) 11/25/2024 Attention-defic it hyperactivity disorder, combined type (ICD-10 - F90.2) Struggling with maintaining focus and concentration which is impacting productivity at work and home settings. 01/05/2025 Major depressive disorder, single episode, severe with psychotic features (ICD-10 - F32.3) 01/05/2025 Generalized anxiety disorder (ICD-10 - F41.1) Stable, no concerns today, well controlled 01/13/2025 Attention-defic it hyperactivity disorder, combined type (ICD-10 - F90.2) Struggling with maintaining focus and concentration which is impacting productivity at work and home settings. 01/25/2025 Attention-defic it hyperactivity disorder, combined type (ICD-10 - F90.2) Struggling with maintaining focus and concentration which is impacting productivity at work and home settings. [employer] Response got Denied on 2025-02-08 09:07:21 for 'Methylphenidate HCl ER (OSM) 72 MG Tablet Extended Release'Pharmacy Notes: Cancelled in the system 01/27/2025 Generalized anxiety disorder (ICD-10 - F41.1) Continue therapy with Bacilio 01/27/2025 Passive suicidal ideations (ICD-10 - R45.851) 01/31/2025 Major depressive disorder, recurrent, severe with psychotic symptoms (ICD-10 - F33.3) 01/31/2025 Post-traumatic stress disorder, chronic (ICD-10 - F43.12) 02/16/2025 Major depressive disorder, recurrent, severe with psychotic symptoms (ICD-10 - F33.3) Electronic Prior Authorization was requested for Caplyta 10.5 MG Capsule. Provider can order medication once approval received. 02/16/2025 Nicotine use (ICD-10 - Z72.0) 04/20/2025 Post-traumatic stress disorder, chronic (ICD-10 - F43.12) 03/21/2025 Nicotine use (ICD-10 - Z72.0) 04/20/2025 Major depressive disorder, recurrent, severe with psychotic symptoms (ICD-10 - F33.3) 04/20/2025 Nicotine use (ICD-10 - Z72.0) 05/11/2025 Major depressive disorder, recurrent, severe with psychotic symptoms (ICD-10 - F33.3) 05/11/2025 Generalized anxiety disorder (ICD-10 - F41.1) 02/09/2025 Major depressive disorder, recurrent, severe with psychotic symptoms (ICD-10 - F33.3) Electronic Prior Authorization was requested for Caplyta 10.5 MG Capsule. Provider can order medication once approval received. 05/11/2025 Nicotine use (ICD-10 - Z72.0) 06/15/2025 Nicotine use (ICD-10 - Z72.0) 06/15/2025 Major depressive disorder, recurrent, severe with psychotic symptoms (ICD-10 - F33.3) 06/15/2025 Attention-defic it hyperactivity disorder, combined type (ICD-10 - F90.2) 02/09/2025 Post-traumatic stress disorder, chronic (ICD-10 - F43.12) 11/23/2024 Encounter for screening for depression (ICD-10 - Z13.31) 11/16/2024 Attention-defic it hyperactivity disorder, combined type (ICD-10 - F90.2) 10/13/2024 Major depressive disorder, recurrent, severe with psychotic symptoms (ICD-10 - F33.3) Stable, no concerns today. PHQ9= 6 SSRI/SNRI side effects discussed including but not limited to, gastric upset, nausea, vomiting, diarrhea and/or constipation, weight changes, sexual side effects including loss of libido, increased suicidal thoughts/behavio rs in children and young adults, and serotonin syndrome. 10/13/2024 Generalized anxiety disorder (ICD-10 - F41.1) Stable, no concerns today, well controlled 10/06/2024 Attention-defic it hyperactivity disorder, combined type (ICD-10 - F90.2) 10/13/2024 Attention-defic it hyperactivity disorder, combined type (ICD-10 - F90.2) Struggling with maintaining focus and concentration which is impacting productivity at work and home settings. 11/23/2024 Major depressive disorder, recurrent, severe with psychotic symptoms (ICD-10 - F33.3) Stable, no concerns today. PHQ9= 6 SSRI/SNRI side effects discussed including but not limited to, gastric upset, nausea, vomiting, diarrhea and/or constipation, weight changes, sexual side effects including loss of libido, increased suicidal thoughts/behavio rs in children and young adults, and serotonin syndrome. 01/05/2025 Major depressive disorder, recurrent, severe with psychotic symptoms (ICD-10 - F33.3) Stable, no concerns today. PHQ9= 6 SSRI/SNRI side effects discussed including but not limited to, gastric upset, nausea, vomiting, diarrhea and/or constipation, weight changes, sexual side effects including loss of libido, increased suicidal thoughts/behavio rs in children and young adults, and serotonin syndrome. 06/15/2025 Post-traumatic stress disorder, chronic (ICD-10 - F43.12) 06/15/2025 Major depressive disorder, recurrent, severe with psychotic symptoms (ICD-10 - F33.3) Electronic Prior Authorization was requested for Caplyta 10.5 MG Capsule. Provider can order medication once approval received. 02/09/2025 Generalized anxiety disorder (ICD-10 - F41.1) 05/11/2025 Attention-defic it hyperactivity disorder, combined type (ICD-10 - F90.2) 05/11/2025 Major depressive disorder, recurrent, severe with psychotic symptoms (ICD-10 - F33.3) Electronic Prior Authorization was requested for Caplyta 10.5 MG Capsule. Provider can order medication once approval received. 04/20/2025 Attention-defic it hyperactivity disorder, combined type (ICD-10 - F90.2) 04/20/2025 Major depressive disorder, recurrent, severe with psychotic symptoms (ICD-10 - F33.3) Electronic Prior Authorization was requested for Caplyta 10.5 MG Capsule. Provider can order medication once approval received. 03/21/2025 Major depressive disorder, recurrent, severe with psychotic symptoms (ICD-10 - F33.3) Electronic Prior Authorization was requested for Caplyta 10.5 MG Capsule. Provider can order medication once approval received. 02/16/2025 Post-traumatic stress disorder, chronic (ICD-10 - F43.12) 01/31/2025 Generalized anxiety disorder (ICD-10 - F41.1) 01/27/2025 Major depressive disorder, recurrent, severe with psychotic symptoms (ICD-10 - F33.3) continue therapy with Bacilio Duloxetine last filled on 01/05/2025 for 90 days by Rowena trazodone last filled on 11/23/2024 for 90 days by Rowena (refill not appropriate at this time) 01/18/2025 Attention-defic it hyperactivity disorder, combined type (ICD-10 - F90.2) Electronic Prior Authorization was requested for Methylphenidate HCl ER (OSM) 72 MG Tablet Extended Release. Provider can order medication once approval received. 01/05/2025 Attention-defic it hyperactivity disorder, combined type (ICD-10 - F90.2) Struggling with maintaining focus and concentration which is impacting productivity at work and home settings. ADHD Stimulant Education -Discussed with patient risk of misuse, abuse, and addiction before prescribing stimulant medicines. -Counseled not to share their prescribed stimulant with anyone else. -Educated patient will monitor during treatment: regularly assess and monitor them for signs and symptoms of nonmedical use, addiction, and potential diversion, which may be evidenced by more frequent renewal requests and medication metabolites absent from urine drug screens. -Random UDS (at least every three months or more frequently deemed by provider). -Per office policy, only prescribed to local pharmacy in [place], no early refills on control substance. 01/05/2025 Attention-defic it hyperactivity disorder, combined type (ICD-10 - F90.2) Struggling with maintaining focus and concentration which is impacting productivity at work and home settings. 12/07/2024 Attention-defic it hyperactivity disorder, combined type (ICD-10 - F90.2) Electronic Prior Authorization was requested for Methylphenidate HCl ER (OSM) 54 MG Tablet Extended Release. Provider can order medication once approval received. 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 01/05/2025 Post-traumatic stress disorder, chronic (ICD-10 - F43.12) Stable, needs to schedule counseling follow up with bacilio 01/05/2025 Post-traumatic stress disorder, chronic (ICD-10 - F43.12) Stable, needs to schedule counseling follow up with bacilio 01/27/2025 Attention-defic it hyperactivity disorder, combined type (ICD-10 - F90.2) last filled by Rowena on 01-14-2025 for 30 days. (refill not appropriate at this time) 02/16/2025 Generalized anxiety disorder (ICD-10 - F41.1) 01/31/2025 Attention-defic it hyperactivity disorder, combined type (ICD-10 - F90.2) 03/21/2025 Post-traumatic stress disorder, chronic (ICD-10 - F43.12) 04/20/2025 Generalized anxiety disorder (ICD-10 - F41.1) 04/20/2025 Post-traumatic stress disorder, chronic (ICD-10 - F43.12) 05/11/2025 Post-traumatic stress disorder, chronic (ICD-10 - F43.12) 05/11/2025 Post-traumatic stress disorder, chronic (ICD-10 - F43.12) 06/15/2025 Post-traumatic stress disorder, chronic (ICD-10 - F43.12) 06/15/2025 Generalized anxiety disorder (ICD-10 - F41.1) 02/09/2025 Attention-defic it hyperactivity disorder, combined type (ICD-10 - F90.2) discontinue stimulant for now, plan to monitor for improvement in anxiety, paranoia 11/23/2024 Generalized anxiety disorder (ICD-10 - F41.1) Stable, no concerns today, well controlled 10/13/2024 Post-traumatic stress disorder, chronic (ICD-10 - F43.12) Stable, needs to schedule counseling follow up with bacilio 10/13/2024 Cigarette smoker (ICD-10 - F17.210) Current daily smoker, on average about 5 cigarettes daily. Has been smoking since age 14. No history of quitting or attempt at quitting. 02/09/2025 Nicotine use (ICD-10 - Z72.0) 06/15/2025 Generalized anxiety disorder (ICD-10 - F41.1) 05/11/2025 Generalized anxiety disorder (ICD-10 - F41.1) 04/20/2025 Generalized anxiety disorder (ICD-10 - F41.1) 03/21/2025 Generalized anxiety disorder (ICD-10 - F41.1) 02/16/2025 Encounter for screening for cardiovascular disorders (ICD-10 - Z13.6) 01/31/2025 Encounter for screening for depression (ICD-10 - Z13.31) 01/05/2025 Encounter for screening for depression (ICD-10 - Z13.31) 01/05/2025 Encounter for screening for depression (ICD-10 - Z13.31) 01/27/2025 Post-traumatic stress disorder, chronic (ICD-10 - F43.12) 07/14/2024 Post-traumatic stress disorder, chronic (ICD-10 - F43.12) 11/23/2024 Attention-defic it hyperactivity disorder, combined type (ICD-10 - F90.2) Struggling with maintaining focus and concentration which is impacting productivity at work and home settings. Electronic Prior Authorization was requested for Methylphenidate HCl ER (OSM) 45 MG Tablet Extended Release. Provider can order medication once approval received. 01/27/2025 Encounter for screening for depression (ICD-10 - Z13.31) 02/16/2025 Attention-defic it hyperactivity disorder, combined type (ICD-10 - F90.2) 03/21/2025 Attention-defic it hyperactivity disorder, combined type (ICD-10 - F90.2) Discussed risks/benefits/a lternatives to atomoxetine, including GI side effects, weight loss, irritability, constipation, sexual dysfunction, increase in blood pressure and liver damage. Patient denies any h/o cardiovascular disease, including hypertension, tachyarrhythmias . 04/20/2025 Attention-defic it hyperactivity disorder, combined type (ICD-10 - F90.2) Discussed risks/benefits/a lternatives to atomoxetine, including GI side effects, weight loss, irritability, constipation, sexual dysfunction, increase in blood pressure and liver damage. Patient denies any h/o cardiovascular disease, including hypertension, tachyarrhythmias . 05/11/2025 Attention-defic it hyperactivity disorder, combined type (ICD-10 - F90.2) Discussed risks/benefits/a lternatives to atomoxetine, including GI side effects, weight loss, irritability, constipation, sexual dysfunction, increase in blood pressure and liver damage. Patient denies any h/o cardiovascular disease, including hypertension, tachyarrhythmias . 06/15/2025 Attention-defic it hyperactivity disorder, combined type (ICD-10 - F90.2) Discussed risks/benefits/a lternatives to atomoxetine, including GI side effects, weight loss, irritability, constipation, sexual dysfunction, increase in blood pressure and liver damage. Patient denies any h/o cardiovascular disease, including hypertension, tachyarrhythmias . 02/09/2025 Encounter for screening for depression (ICD-10 - Z13.31) 11/23/2024 Post-traumatic stress disorder, chronic (ICD-10 - F43.12) Stable, needs to schedule counseling follow up with bacilio 11/23/2024 Cigarette smoker (ICD-10 - F17.210) Current daily smoker, on average about 5 cigarettes daily. Has been smoking since age 14. No history of quitting or attempt at quitting. 02/09/2025 Encounter for screening for cardiovascular disorders (ICD-10 - Z13.6) 02/16/2025 Encounter for screening for depression (ICD-10 - Z13.31) 07/14/2024 Other Stable, continue current medications. Refills [...] of psychotropic medications. -Crisis prevention hotline 988. 11/23/2024 Other Increase Concerta to 45mg daily [...] of psychotropic medications. -Crisis prevention hotline 988. 01/05/2025 Other Stop chantix, no cigarette use in 6 weeks, denies cravings Increase Concerta to 72mg daily for ADHD management Patient educated on all medications including potential [...] of psychotropic medications. -Crisis prevention hotline 988. 01/05/2025 Other Relationship Conflict - Assessment: Kylie reports experiencing significant relationship conflict with her boyfriend. He frequently accuses her of infidelity and inappropriate behavior in public settings, such as looking at other people during dinner outings. This has led Kylie to avoid social situations with her partner by working overtime. The boyfriend's behavior suggests potential issues with jealousy, insecurity, and controlling tendencies. Kylie's avoidance strategy may be exacerbating the situation, as her boyfriend is taking this personally. The ongoing conflict is causing distress and impacting Kylie's daily life and relationship satisfaction. - Plan: - Explore Kylie's feelings about the relationship and her partner's behavior. - Discuss healthy communication strategies and boundary-setting techniques. - Consider couples therapy to address relationship issues if Kylie is interested and her partner is willing to participate. - Provide resources on recognizing signs of emotional abuse or controlling behavior in relationships. Upcoming Cruise Vacation Stress - Assessment: Kylie is preparing for an upcoming cruise vacation with her boyfriend, his son (who is turning 21), and his son's friend. Given the current relationship tensions and Kylie's recent tendency to avoid social situations with her boyfriend, this vacation may present additional stressors and challenges for the patient. - Plan: - Discuss Kylie's expectations and concerns about the upcoming cruise. - Develop coping strategies for managing potential relationship conflicts during the vacation. - Explore ways to establish personal boundaries and self-care practices while on the trip. 01/27/2025 Other Hydroxyzine material was printed Major Depressive Disorder Assessment: Patient reports current depression severity of 7/10. Symptoms include feelings of unworthiness, passive suicidal ideation without intent or plan, and sleep disturbances (waking every hour for the past 3 weeks). Patient had been taking duloxetine but missed doses during vacation. Depression appears to have worsened following medication non-compliance and recent stressors (stomach flu, vacation). Plan: - Continue duloxetine - Resume trazodone - Hydroxyzine prescribed for as-needed use up to 3 times daily for anxiety - Provided crisis prevention hotline number (246) and magnet for frie - Follow up with Bacilio next week - Return to walk-in clinic for follow up in one week - Consider antipsychotic or mood stabilizer if symptoms persist Generalized Anxiety Disorder Assessment: Patient reports current anxiety level of 8-9/10. Anxiety appears to have worsened following medication non-compliance during vacation. Plan: - Hydroxyzine prescribed for as-needed use up to 3 times daily - Return to walk-in clinic in one week for follow up Attention Deficit Hyperactivity Disorder (ADHD) Assessment: Patient reports difficulty focusing at work prior to vacation. Recently started methylphenidate, which caused mood fluctuations (high, then low) after first dose this morning. Plan: - Discontinue methylphenidate - Hold off on ADHD medication until next appointment with Rowena - Reassess ADHD treatment plan after depression is under control The note is transcribed using speech recognition software. It is a reflection of a visit with the patient. It might have some inaccuracy, including medication names and transcribing errors, though efforts have been made to correct them. 01/31/2025 Other Patient reports hearing voices from the television, experiencing paranoid ideation about fighting evil. The severity of symptoms is significantly impacting her daily functioning, preventing her from returning to work. Patient demonstrates some insight into her condition, recognizing the need for intervention, but expresses fear and reluctance about hospitalization. - Plan: - Recommend immediate psychiatric hospitalization for medication management and stabilization - Provide patient and family with information about the hospitalization process, including voluntary admission and visiting hours - Arrange for patient to be transported to [facility] Room by her partner, Barry - Provide patient with clinician contact information for hospital staff - Advise patient to bring current medication list to the hospital - Discuss with patient the need for FMLA paperwork for work absence - Plan for follow-up appointment after discharge from hospital 02/09/2025 Other Concern for weight gain on olanzapine- continue 10mg daily for now. Start Caplyta 10.5mg daily for paranoia, anxiety - plan to cross titrate caplyta, olanzapine as tolerated Patient educated on all medications including potential benefits, side effects, risks. Educated on proper dosing schedule and importance of compliance. Hold off on stimulant for time being -Assessment and treatment plan reviewed with patient. -Compliance with treatment plan importance discussed. -Discussed the risks/benefits of this medication -Discussed medication side effects. -Contact office if symptoms worsen. -Discussed that it can take up to 6-8 weeks to see full therapeutic effects of psychotropic medications. -Crisis prevention hotline 988. 02/16/2025 Other Restart Concerta at low dose-18mg daily as she will be returning to work. - discussed monitoring for increase in paranoia, if this occurs stop stimulant and contact office Patient educated on all medications including potential [...] of psychotropic medications. -Crisis prevention hotline 988. 03/21/2025 Other Discontinue concerta, hesitate to start other stimulant due to psychosis Start atomoxetine 25mg daily for two weeks then 40mg daily for ADHD management Patient educated on all medications including potential benefits, side effects, risks. Educated on proper dosing schedule and importance of compliance. -Assessment and treatment plan reviewed with patient. -Compliance with treatment plan importance discussed. -Discussed the risks/benefits of this medication -Discussed medication side effects. -Contact office if symptoms worsen. -Discussed that it can take up to 6-8 weeks to see full therapeutic effects of psychotropic medications. -Crisis prevention hotline 988. 04/20/2025 Demetris Del Rio, a female patient with a history of psychiatric hospitalization, presents for follow-up after recent discharge, reporting improvement in psychotic symptoms but experiencing stress related to her boyfriend's relationship OCD. Recent Psychiatric Hospitalization and Psychotic Symptoms Assessment: Patient was recently hospitalized at [facility] due to auditory hallucinations and paranoia. She reported hearing voices saying she was gonna tonight. Since discharge, patient reports improvement with medication, stating she is no longer experiencing auditory hallucinations. Sleep patterns remain inconsistent, with patient describing sleep as sometimes okay and sometimes it's not. Plan: - Continue current medication regimen (specific medication and dosage not mentioned) - Monitor for return of psychotic symptoms Relationship Stress and Partner's OCD Assessment: Patient reports significant stress related to her boyfriend's relationship OCD. He frequently accuses her of infidelity, interest in others, or not coming directly home. This behavior is causing extreme stress for the patient. Education on OCD and the cycle of violence was provided during the session, and strategies for managing the situation were discussed. Plan: - Continue to provide education on OCD and its impact on relationships - Develop and implement stress management techniques - Monitor patient's emotional well-being in relation to relationship stress Work Schedule Challenges Assessment: Patient reports difficulty in scheduling medical appointments due to variable work hours, alternating between 7 AM to 4 PM and 12 PM to 8 PM shifts. This variability impacts her ability to consistently attend healthcare appointments. Plan: - Explore flexible appointment options to accommodate patient's work schedule - Consider telehealth options when appropriate - Today's appointment was shortened to allow patient to meet with a psychiatric nurse practitioner and return to work, minimizing disruption to her schedule 04/20/2025 Other Stable on current medication regimen, continue at current doses. -Refills sent in today -No concerns today Patient educated on all medications including potential benefits, side effects, risks. Educated on proper dosing schedule and importance of compliance. Cont counseling with Bacilio -Assessment and treatment plan reviewed with patient. -Compliance with treatment plan importance discussed. -Discussed the risks/benefits of this medication -Discussed medication side effects. -Contact office if symptoms worsen. -Discussed that it can take up to 6-8 weeks to see full therapeutic effects of psychotropic medications. -Crisis prevention hotline 988. 05/11/2025 Demetris Del Rio, a female patient with a history of mental health concerns requiring FMLA, presents with work-related stress, concerns about potential breast cancer, and family conflict. Work-related stress and perceived discrimination - Assessment: Kylie reports feeling passed over for promotion at work, which she attributes to her use of FMLA for mental health reasons. This perception of workplace discrimination is causing significant distress and may be exacerbating her existing mental health concerns. The situation appears to be impacting her job satisfaction and potentially her career progression. 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 - Explore coping mechanisms for workplace stress. - Discuss potential legal protections under FMLA and anti-discriminat ion laws. Anxiety related to potential breast cancer - Assessment: Kylie has discovered a lump in her breast and is awaiting further diagnostic procedures, including a mammogram. This health concern is causing additional stress and worry, which may compound her existing mental health issues. The uncertainty surrounding the diagnosis is likely contributing to heightened anxiety levels. - Plan: - Provide emotional support during the diagnostic process. - Assist in developing coping strategies for health-related anxiety. - Encourage follow-through with scheduled mammogram. Family conflict and breach of privacy - Assessment: Kylie reports that her junito, who works at the same workplace, has been sharing personal information about Kylie with colleagues. This breach of privacy is causing distress and potentially damaging familial relationships. The situation may be contributing to a sense of vulnerability and lack of trust in both personal and professional spheres. - Plan: - Develop a strategy for Kylie to confront her junito about the privacy breach. - Explore boundary-setting techniques within family and work relationships. - Discuss potential workplace policies regarding confidentiality and personal information sharing. 05/11/2025 Other Increase atomoxetine to 60mg daily for ADHD management Continue duloxetine at current dose, depression currently situational, re-eval need for adjustment next visit Patient educated on all medications including potential benefits, side effects, risks. Educated on proper dosing schedule and importance of compliance. -Assessment and treatment plan reviewed with patient. -Compliance with treatment plan importance discussed. -Discussed the risks/benefits of this medication -Discussed medication side effects. -Contact office if symptoms worsen. -Discussed that it can take up to 6-8 weeks to see full therapeutic effects of psychotropic medications. -Crisis prevention hotline 988. 06/15/2025 Demetris Del Rio presents with depression, anxiety, and sleep disturbances in the context of her daughter's psychosis and subsequent family crisis involving custody of her grandchildren. Depression - Assessment: Kylie reports experiencing depression concurrent with significant family stressors. She is currently managing her daughter Venita's psychotic episode, which has resulted in Kylie and other family members taking custody of Venita's two children (ages 4 and 7) due to safety concerns. The depression appears to be situational, related to the acute family crisis and increased responsibilities . She was evaluated by a psychiatric nurse practitioner today who made medication adjustments to address her symptoms. - Plan: - Caplyta dosage increased per psychiatric nurse practitioner evaluation today. - MIR[facility] resources provided and patient encouraged to utilize these supports. Anxiety - Assessment: Kylie presented as noticeably anxious during today's session. 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 - Plan: - MIRZA resources provided and patient encouraged to utilize these supports. Sleep Disturbances - Assessment: Kylie reports trouble sleeping, which is likely related to her current depression and anxiety symptoms as well as the significant life stressors she is managing. Sleep difficulties are occurring in the context of her increased responsibilities and emotional distress from the family crisis. - Plan: - Caplyta dosage increased per psychiatric nurse practitioner evaluation today. 06/15/2025 Other Increase Caplyta to 21mg daily for mood Patient educated on all medications including potential benefits, side effects, risks. Educated on proper dosing schedule and importance of compliance. Cont therapy with Bacilio -Assessment and treatment plan reviewed with patient. -Compliance with treatment plan importance discussed. -Discussed the risks/benefits of this medication -Discussed medication side effects. -Contact office if symptoms worsen. -Discussed that it can take up to 6-8 weeks to see full therapeutic effects of psychotropic medications. -Crisis prevention hotline 288. Plan Of Treatment Pending Test Test Name Order Date UDT 04/14/2024 Next Appt Details Provider Name:Bacilio Haro, 07/13/2025 11:00:00 AM, [address], [facility] [address], [address], Provider Name:Rowena choudhury, 07/13/2025 01:15:00 PM, [address], [address], [place], [address], Provider Name:Bacilio Haro, 08/10/2025 11:00:00 AM, [address], [address], [place], [address], Provider Name:Bacilio Haro, 09/07/2025 11:00:00 AM, [address], [address], [place], [address], Insurance Providers Payer Name Payer Address Payer Phone Subscriber Number Group Number Insured Name Patient Relationship to Insured Coverage Start Date Coverage End Date [employer] [employer] [address] [place] [address] [id number] KYLIE FUNG Self - patient is the insured [place] [address] [address] [place] [address] [id number] ANTONIETA KYLIE Self - patient is the insured 4 4 Medical (General) History Medical History History ICD Code Problems: Abnormal weight gain Attention deficit hyperactivity disorder , combined type Chronic post-traumatic stress disorder Generalized anxiety disorder Severe recurrent major depression with p sychotic features Severe recurrent major depression withou t psychotic features , Surgical History Surgery Date(Month/Year) Tonsilectomy/adenoids 09/01/1987 Breast surgery (38503) 09/01/1999 Cosmetic surgery 09/01/2014 Any surgical history 09/01/2020 Hysterectomy ([id number]) 07/16/2021
== END 2025-06-17 12:25 | disposition home or self-care (01) ==
PROVIDERS: PCP Registered Nurse; Visit Provider Registered Nurse
DX: N63.42 Unspecified lump in left breast, subareolar (principal)
CPT/HCPCS: 76642; 77062; 77066; G0279